=== PATIENT | female | born 1940 | race Caucasian/White ===

== ENCOUNTER → 2018-01-02 06:18 | Outpatient (CLI) | payer MEDICARE, SELFPAY ==
--- NOTE | 2018-01-02 06:22 | CA_ITS ---
PROCEDURE: 2-D M-mode and color Doppler study INDICATIONS FOR THE TEST: Chest pain X COPD Heart MurmurX Tobacco Smoking Palpitations FatigueX Syncope EdemaX HypertensionXDiabetes Mellitus Rheumatic Fever SOBXDOE Obesity HyperlipidemiaX Family History HD Additional History PATIENT INFORMATION HEIGHT: 55 WEIGHT:112 GENDER: Female B/P:149/72 2-D/M-MODE INTERPRETATION: 2-D MEASUREMENTS OBSERVED VALUES IN CMS Right Ventricular Dimension (RVDd) 1.4 Interventricular Septum (Thickness)(IVsd) 1.2 Left Ventricular Internal Dimensions(LVIDd) 3.9 Left Ventricular Posterior Wall (Thickness)(LVPWd) .9 Aortic Root 3.0 Aortic Cusp Separation 1.5 Left Atrial Dimensions (LAD) 3.3 2D 1. Left atrium is mildly enlarged, left ventricle is normal size, mild concentric left ventricular hypertrophy, visually estimated ejection fraction 55% with no obvious regional wall motion abnormality. 2. The right atrium and right ventricle are normal size and contractility. 3. The aortic valve is minimally thickened and fibrosed. 4. The mitral and tricuspid valve leaflets are minimally thickened. 5. The pulmonic valve is poorly visualized. 6. No significant pericardial effusion noted. DOPPLER INTERROGATION: Doppler interrogation of the aortic, mitral and tricuspid valvular presence of mild aortic, mild mitral and tricuspid regurgitation, calculated right ventricular systolic pressure is 36 mmHg consistent with mild pulmonary hypertension, grade 1 diastolic dysfunction seen with tissue Doppler evidence of raised left atrial pressure. CONCLUSION: 1. Mildly enlarged left atrium, normal left ventricular size, mild concentric left ventricular hypertrophy, visually estimated ejection fraction 55% with no signal wall motion abnormality, grade 1 diastolic dysfunction seen with tissue Doppler evidence of raised left atrial pressure. 2. Mild aortic, mild mitral and tricuspid regurgitation, calculated right ventricular systolic pressure is 36 mmHg consistent with mild pulmonary hypertension. 3. No significant pericardial effusion noted.
--- NOTE | 2018-01-02 06:22 | NM_ITS ---
History and Indications: Hyperlipidemia, chest pain and shortness of breath Procedure: Patient received a 0.4 mg of Lexiscan, resting heart rate 62 bpm, resting blood pressure 152/74, with Lexiscan maximum heart rate achieved was 109 bpm which is less than 85% of the maximum predicted heart rate and a blood pressure was 100/57. With Lexiscan patient complained of nausea and vomiting requiring intravenous Aminophyllin to reverse symptoms. Electrocardiogram: Resting electrocardiogram showed sinus rhythm, with Lexiscan there is less than 1.[address] segment depression noted from the baseline EKG. The EKG portion of the Lexiscan Myoview is nondiagnostic. Cardiac stress and resting SPECT images: Cardiac stress and rest SPECT images were obtained using technetium 99 Myoview 31.3 mCi at stress and the 10.6 mCi at rest. Gated SPECT further analysis of segmental wall motion and calculation of the ejection fraction also done. Cardiac stress and rest SPECT images show a mild fixed defect in the anterior wall with normal contractility in the gated SPECT is likely secondary to soft tissue attenuation, derived ejection fraction is 61% with no obvious regional wall motion abnormality, right ventricle is normal size and contractility. Conclusion: 1. The EKG portion of the Lexiscan Myoview is nondiagnostic. 2. No obvious scintigraphic evidence of reversible ischemia, either derived ejection fraction is 61% with no obvious regional wall motion abnormality, right ventricle is normal size and contractility. 3. Normal Lexiscan Myoview study.
--- NOTE | 2018-01-02 08:53 | HMH.ITSHM ---
valsartan triamterene/hctz simvastatin diazepam asa
== END ==
PROVIDERS: Family Provider Family Medicine; PCP Family Medicine; Visit Provider Internal Medicine
DX: R07.89 Other chest pain (principal); R06.09 Other forms of dyspnea; R94.31 Abnormal electrocardiogram [ECG] [EKG]; E78.5 Hyperlipidemia, unspecified; I35.1 Nonrheumatic aortic (valve) insufficiency
CPT/HCPCS: 78452; 93017; 93306; A9502; J2785

== ENCOUNTER → 2018-01-20 11:07 | Outpatient (CLI) | payer MEDICARE, SELFPAY ==
--- NOTE | 2018-01-20 11:13 | XR_ITS ---
XR foot LT min 3V HISTORY: ITS.REASON: LEFT HEEL PAIN ORDERING PHYSICIAN: Harshal Rojas MD PATIENT AGE: 77 years COMPARISON: None FINDINGS: No fracture or dislocation. No lytic or blastic change. There is mild generalized osteopenia... There is mild hallux valgus and there are mild hammertoe deformities of the second third toes. There is possible mild post traumatic change of the MP joint of the second toe. The joint spaces are well-preserved. No significant degenerative/arthritic changes. No erosive changes evident. There is a small spur of the calcaneus at insertion of plantar tendon. IMPRESSION: Small calcaneal spur and mild hallux valgus
== END ==
PROVIDERS: PCP Family Medicine; Visit Provider Family Medicine
DX: M79.672 Pain in left foot (principal)
CPT/HCPCS: 73630

== ENCOUNTER → 2018-02-20 14:38 | Outpatient (CLI) | payer MEDICARE, SELFPAY ==
--- NOTE | 2018-02-20 14:46 | XR_ITS ---
XR chest 2V HISTORY: ITS.REASON: HTN ORDERING PHYSICIAN: Harshal Rojas MD PATIENT AGE: 77 years COMPARISON: 03/07/2012 FINDINGS: The cardiovascular structures are unremarkable. The lungs are clear bilaterally. There is increased density overlying the spine at the T12 region and could be due to small hiatal hernia. Paraspinal bony hypertrophic change also a consideration. There has been prior right shoulder replacement. Multiple screws are present in the glenoid portion of the prosthesis at least one extending superior to the clavicle injected into the soft tissues. There is a right proximal humeral prosthesis present as well as 2 plates over the mid and distal aspect of the humerus. Degenerative changes are present in the lower thoracic spine. IMPRESSION: 1. No acute finding of the chest. 2. Postsurgical changes of the right shoulder and humerus. 3. Possible hiatal hernia 4. degenerative change thoracic lumbar spine
== END ==
PROVIDERS: PCP Family Medicine; Visit Provider Family Medicine
DX: Z01.818 Encounter for other preprocedural examination (principal)
CPT/HCPCS: 71046

== ENCOUNTER → 2018-06-03 08:57 | Outpatient (CLI) | payer MEDICARE, SELFPAY ==
--- NOTE | 2018-06-03 09:02 | XR_ITS ---
XR DEXA axial skeleton HISTORY: ITS.REASON: OSTEOPOROSIS ORDERING PHYSICIAN: Harshal Rojas MD PATIENT AGE: 77 years COMPARISON: None FINDINGS: The BMD measured at the Right Total is 0.812 g/cm squared with a T score of -1.6. This is considered Osteopenic according to the World Health Organization criteria. Fracture risk is Moderate. Treatment is advised. L1 L4 density has a T score -1.2. IMPRESSION: Osteopenia with moderate fracture risk. Treatment is advised. Recommend follow-up exam May 2020
== END ==
PROVIDERS: PCP Family Medicine; Visit Provider Family Medicine
DX: M81.0 Age-related osteoporosis without current pathological fracture (principal)
CPT/HCPCS: 77080

== ENCOUNTER 2018-06-11 10:49 | Outpatient (CLI) | payer MEDICARE, SELFPAY ==
[2018-06-11 09:54] VITALS: BP 116/66; PULSE 78; RESP 18; TEMP 36.4; O2SAT 97
== END 2018-06-11 11:20 | disposition home or self-care (01) ==
LOC: INF 10:49
PROVIDERS: Visit Provider Family Medicine
DX: M81.0 Age-related osteoporosis without current pathological fracture (principal)
CPT/HCPCS: 96372; J0897

== ENCOUNTER 2018-12-10 10:48 | Outpatient (CLI) | payer MEDICARE, SELFPAY ==
[2018-12-10 10:54] VITALS: BP 132/62; PULSE 64; RESP 20; TEMP 36.8; O2SAT 99
== END 2018-12-10 11:15 | disposition home or self-care (01) ==
LOC: INF 10:48
PROVIDERS: Visit Provider Family Medicine
DX: M81.0 Age-related osteoporosis without current pathological fracture (principal)
CPT/HCPCS: 96372; J0897

== ENCOUNTER 2018-12-12 21:21 | Inpatient (IN) ==
[2018-12-12 22:29] LABS: Basophils % 0.1 % (0.1-2.0); Eosinophils % 0.1 % (0.1-12.0); Hemoglobin 11.4 g/dL (12.2-16.2); Lymphocytes # 0.3 K/mm3 (0.7-4.5); Lymphocytes % 2.6 % (10-50); Mean Corpuscular HGB Conc 32.6 g/dL (31.8-35.4); Mean Corpuscular Hemoglobin 28.2 pg (27.0-31.2); Mean Corpuscular Volume 86.7 fl (81-99); Mean Platelet Volume 6.9 fl (7.4-10.4); Monocytes # 0.5 K/mm3 (0.1-1.0); Monocytes % 4.4 % (1.7-9.3); Neutrophils # 9.8 K/mm3 (1.8-7.8); Neutrophils % 92.8 % (37.0-80.0); Platelet Count 254 K/mm3 (142-424); Red Blood Count 4.04 M/mm3 (4.20-5.40); Red Cell Distribution Width 13.4 % (11.5-17.5); White Blood Count 10.5 K/mm3 (4.8-10.8)
[2018-12-12 22:32] LABS: Microscopic, Urine URINE MICROSCOPIC (MICROSCOPIC)
[2018-12-12 22:34] LABS: Appearance,Urine CLEAR (Clear); Bilirubin,Urine Negative (Negative); Blood, Urine TRACE-L (Negative); Color,Urine YELLOW (Yellow); Glucose,Urine (UA) Negative (Negative); Ketones,Urine Negative (Negative); Leukocyte Esterase,Urine Negative (Negative); PH,Urine 7.5 (5.0-8.5); Protein,Urine Negative (Negative); Specific Gravity, Urine 1.015 (1.005-1.030); Urobilinogen,Urine 0.2 EU/dl (0.2)
--- NOTE | 2018-12-12 22:35 | Emergency Department Note ---
ED Disposition Clinical Impression: Cholecystitis Disposition: Admitted as Observation Condition on Discharge: Good Referrals: Harshal Rojas MD [Primary Care Provider] - - Critical Care Critical Care Time: No Attestation: On 12/12/18, the high probability of a clinically significant, sudden or life threatening deterioration of the following system(s) required my full and direct attention, intervention and personal management. The time I documented below is in addition to time spent performing reported procedures but includes the following listed in this critical care notation. Medical Decision Making - Medical Records Medical records reviewed: Yes: I reviewed the patient's medical records. - Silvino Inquiry Pt receiving controlled substance: No Vital Signs: 12/12/18 21:52 12/12/18 22:53 12/12/18 23:23 Temperature 98.8 F Temperature Source Oral Pulse Rate [Right] 103 H 102 H 94 H Respiratory Rate 18 16 16 Blood Pressure [Right Arm] 157/79 H 157/79 H 144/54 H Blood Pressure Mean [Right Arm] 105 105 84 Blood Pressure Source [Right Arm] Automatic Cuff Blood Pressure Position [Right Arm] Supine 02 Sat by Pulse Oximetry 96 95 96 Oxygen Delivery Method Room Air Room Air 12/12/18 23:27 12/12/18 23:30 12/13/18 00:00 Temperature Temperature Source Pulse Rate [Right] 91 H 88 84 Respiratory Rate 16 16 16 Blood Pressure [Right Arm] 141/71 H 123/73 116/63 Blood Pressure Mean [Right Arm] 94 89 80 Blood Pressure Source [Right Arm] Blood Pressure Position [Right Arm] 02 Sat by Pulse Oximetry 97 97 97 Oxygen Delivery Method Room Air Room Air Room Air - Lab Data Lab results reviewed: Yes: I reviewed the patient's lab results. Lab Results 12/12/18 22:10: WBC 10.5, RBC 4.04 L, Hgb 11.4 L, Hct 35.0 L, MCV 86.7, MCH 28.2, MCHC 32.6, RDW 13.4, Plt Count 254, MPV 6.9 L, Neut % (Auto) 92.8 H, Lymph % (Auto) 2.6 L, [place] % (Auto) 4.4, Eos % (Auto) 0.1, Baso % (Auto) 0.1, Neut # (Auto) 9.8 H, Lymph # (Auto) 0.3 L, [place] # (Auto) 0.5, Eos # (Auto) 0.0, Baso # (Auto) 0.0, Total Counted 100, Neutrophils % (Manual) 85 H, Band Neutrophils % 8.0, Lymphocytes % (Manual) 5 L, Monocytes % (Manual) 2, Platelet Estimate Normal, RBC Morphology Normal, ESR 15 12/12/18 22:10: Sodium 130 L, Potassium 3.6, Chloride 95 L, Carbon Dioxide 27, Anion Gap 11.6, BUN 14, Creatinine 0.78, Estimated Creat Clear 36, Estimated GFR 71, Est GFR ( Amer) 86, Glucose 174 H, Calcium 8.8, Total Bilirubin 2.6 H , AST 276 H, ALT 269 H, Alkaline Phosphatase 119 H, C-Reactive Protein 3.2 H, Total Protein 6.1 L, Albumin 3.5, Globulin 2.6, Albumin/Globulin Ratio 1.3, Am ylase 61, Lipase 91 12/12/18 22:10: Lactate 2.2 H 12/12/18 22:10: Troponin I 0.04 12/12/18 22:25: Urine Color Yellow, Urine Appearance Clear, Urine pH 7.5, Ur Specific [place] 1.015, Urine Protein Negative, Urine Glucose (UA) Negative, Urine Ketones Negative, Urine Blood Trace-l, Urine Nitrate Negative, Urine Bilirubin Negative, Urine Urobilinogen 0.2, Ur Leukocyte Esterase Negative, Urine RBC Occasional, Amorphous Sediment 2+ Result diagrams: 12/12/18 22:10 12/12/18 22:10 Orders (Tests/Meds): ED MEDICATIONS Generic Name Dose Route Start Last Admin Trade Name Freq PRN Reason Stop Dose Admin Sodium Chloride 1,000 mls @ 500 mls/hr 12/12/18 22:45 12/12/18 22:57 Sod Chlor 0.9% 1000ml Bag IV 01/11/19 22:44 500 mls/hr .Q2H JESSICA Administration Discontinued Medications Generic Name Dose Route Start Last Admin Trade Name Freq PRN Reason Stop Dose Admin Ioversol 75 ml 12/12/18 23:29 12/12/18 23:30 Rad-Optiray 350 100ml Vial IV 12/12/18 23:30 75 ml ONCE ONE Administration Protocol Ketorolac Tromethamine 30 mg 12/12/18 22:42 12/12/18 22:56 Toradol 30mg/Ml Vial IV 12/12/18 22:43 30 mg ONCE ONE Administration Ondansetron HCl 4 mg 12/12/18 22:42 12/12/18 22:57 Zofran 4mg/2ml Vial IV 12/12/18 22:43 4 mg ONCE ONE Administration Sodium Chloride 10 ml 12/12/18 23:29 12/12/18 23:30 Rad-Saline Flush 10ml Syringe IV 12/12/18 23:30 10 ml ONCE ONE Administration ORDERS Category Date Time Status CT abdomen pelvis w con Stat Cat Scan 12/12/18 21:58 Taken Blood Culture Stat Micro 12/12/18 22:10 Received - CT Data CT Scan: Abdomen, Pelvis Time Received: 01:[address] Reviewed: Yes: I have viewed the radiologist's interpretation Preliminary Findings: Abnormal (see report ) - ECG Data Tracing #1 Normal Sinus Rhythm: Yes Ischemic changes: non-specific ST-T wave changes ECG compared to prior tracings: there are no significant changes - Physician Consults Physician Consulted: bryan Reason -: Admission Nausea/Vomiting/Diarrhea HPI - General Chief complaint: Nausea/Vomiting/Diarrhea Stated complaint: Abd pain,vomiting Time Seen by Provider: 12/12/18 22:00 Mode of Arrival: Ambulatory Source of Information: Patient, Relative, Medical Record Limitations: No Limitations Description of Symptoms (Recalled from ER Triage Doc. by RN): Pt seen in Dr Laura felix office today for N/V and returned this PM - History of Present Illness HPI Narrative: pt with upper abd pain with nausea but no vomiting and no def fever - was seen in pcp office placed on abx - she has no melena MD complaint: nausea, vomiting, abdominal pain Onset (ago): day(s) Associated Abdominal Pain: Yes Location of pain: epigastric Severity: moderate Associated symptoms: denies other symptoms - Related Data Home Medications Medication Instructions Recorded Confirmed aspirin 81 mg tablet,delayed 81 mg PO DAILY tab 12/20/17 12/12/18 release cholecalciferol (vitamin D3) 2,000 1,000 iunits PO BID cap 12/20/17 12/12/18 unit capsule folic acid 0.8 mg capsule 400 mcg PO DAILY cap 12/20/17 12/12/18 simvastatin 20 mg tablet 20 mg PO QPM 12/20/17 12/12/18 triamterene 37.5 1 tab PO DAILY tab 12/20/17 12/12/18 mg-hydrochlorothiazide 25 mg tablet valsartan 80 mg tablet 80 mg PO DAILY tab 12/20/17 12/12/18 vitamin E (dl, acetate) 100 unit 100 unit PO BID 12/20/17 12/12/18 capsule vitamins A,C,Q-argz-kkbtss 14,320 1 cap PO BID cap 12/20/17 12/12/18 unit-226 mg-200 unit capsule diazepam 5 mg tablet 5 mg PO QHS PRN tab 12/23/17 12/12/18 Agency-3S/Dha/Epa/Fish Oil [Fish 1 each PO BID 06/11/18 12/12/18 Oil 1,200 mg Softgel] naproxen sodium 220 mg capsule 220 mg PO DAILY PRN cap 07/08/18 12/12/18 Dextran 70/Hypromellose/Pf 1 each OP QID 12/12/18 12/12/18 [Genteal Tears 0.1%-0.3% Drop] Multivit-Min/Iron/Folic/Lutein 1 each PO DAILY 12/12/18 12/12/18 [Centrum Silver Women Tablet] Allergies Allergy/AdvReac Type Severity Reaction Status Date / Time CRISTIANO Inhibitors Allergy Mild cough Verified 07/08/18 08:46 [facility] History - Hepatitis A Screen Drug use history?: No High risk sexual behaviors?: No History of sexually transmitted infection?: No Currently employed?: No Childcare worker?: No Do you have indoor plumbing?: Yes Do you have electricity?: Yes Attestation statement:: This patient has been screened for Hepatitis A risk factors. I have reviewed the patient's past medical history: Yes Medical History: Reports:: Anxiety, Gastroesophageal Reflux Disease(GERD), Hiatal Hernia, Hypertension Denies:: Diabetes Mellitus Type 1, Diabetes Mellitus Type 2 Comment: Mild aortic insufficiency and Mitral valve regurgitation Laterality Cases: Bilateral: Arthroscopy Shoulder, Carpal Tunnel Release Other Surgeries: Yes: Hysterectomy-Total, Tubal Ligation, Other (Back Sx (01/30 018)) - Social History Smoking Status: Never smoker Alcohol Intake: never Alcohol Intake Frequency:: other Substance Use Type: denies use Occupational Status: retired - Psychiatric History Expresses thoughts of harming self/others: None Suicide Plan Description: No Plan Pschychiatric History:: Reports:: Anxiety Family Hx:: Hypertension, Cancer ROS Obtained: Yes All systems reviewed & no additional complaints - Constitutional Constitutional: Denies fever(s), Reports poor appetite - Eyes Eyes: Denies change in vision, Denies eye pain - ENT Ears, Nose, Mouth, and Throat: Denies sore throat - Cardiovascular Cardiovascular: Denies chest pain, Denies dyspnea - Respiratory Respiratory: No cough - Gastrointestinal Gastrointestingal: Reports: abdominal pain, nausea. Denies: diarrhea, black, tarry stools, vomiting - Genitourinary Female Genitourinary: Denies hematuria - Musculoskeletal Musculoskeletal: Denies joint pain - Integumentary/Breasts Skin/Breast: Denies rash - Neurologic Neurologic: Denies seizure-like activity Physical Exam - General General appearance: alert - Head Head exam: normocephalic - Eye Eye exam: Present: PERRL, EOMI. Absent: scleral icterus - ENT ENT exam: Present: mucous membranes dry - Neck Neck exam: Present: trachea midline - Respiratory Respiratory exam: Present: normal lung sounds bilaterally. Absent: respiratory distress - Cardiovascular Cardiovascular exam: Present: regular rate, systolic murmur, +S4 - Abdominal Exam Abdominal exam: Present: soft, tenderness, Lobato's sign Abdominal tenderness: Present: RUQ, moderate - Extremities Exam Extremities exam: Present: full ROM - Neurological Exam Neurological exam: Present: alert, CN II-XII intact - Psychiatric Psychiatric exam: Present: normal affect - Skin Skin exam: Absent: rash
[2018-12-12 22:43] LABS: Albumin Level 3.5 gm/dL (3.4-5.0); Albumin/Globulin Ratio 1.3 (1.1-1.8); Anion Gap 11.6 mEq/L (5-15); Bilirubin,Total 2.6 mg/dL (0.2-1.0); C-Reactive Protein 3.2 mg/L (0.0-0.9); Calcium 8.8 mg/dL (8.5-10.1); Globulin 2.6 gm/dl (1.3-3.2); Potassium 3.6 mmoL/L (3.5-5.1); Total Protein,Serum 6.1 gm/dL (6.4-8.2)
[2018-12-12 22:45] LABS: Amorphous Sediment,Urine 2+ /lpf; RBC,Urine Occasional #/hpf (0-3)
[2018-12-12 22:49] LABS: Lymphocytes % 5 % (10-50); Monocytes % 2 % (2-9); Neutrophils % 85 % (42-76); RBC Morphology Normal; Total Cells Counted 100
[2018-12-12 23:05] LABS: Erythrocyte Sedimentation Rate 15 mm/hr (0-30)
[2018-12-13 06:36] LABS: Lymphocytes # 0.6 K/mm3 (0.7-4.5); Lymphocytes % 8.4 % (10-50); Mean Platelet Volume 7.1 fl (7.4-10.4); Monocytes # 0.5 K/mm3 (0.1-1.0); Neutrophils % 84.1 % (37.0-80.0)
[2018-12-13 06:40] LABS: Basophils % 0.2 % (0.1-2.0); Eosinophils % 0.5 % (0.1-12.0); Hematocrit 31.7 % (37.0-47.0); Mean Corpuscular HGB Conc 31.5 g/dL (31.8-35.4); Mean Corpuscular Hemoglobin 27.5 pg (27.0-31.2); Mean Corpuscular Volume 87.3 fl (81-99); Monocytes % 6.8 % (1.7-9.3); Platelet Count 224 K/mm3 (142-424); Red Blood Count 3.63 M/mm3 (4.20-5.40); Red Cell Distribution Width 13.6 % (11.5-17.5); White Blood Count 7.1 K/mm3 (4.8-10.8)
[2018-12-13 06:51] LABS: Albumin Level 2.9 gm/dL (3.4-5.0); Anion Gap 14.4 mEq/L (5-15); Bilirubin,Indirect 0.7 mg/dL (0.0-0.9); Bilirubin,Total 2.7 mg/dL (0.2-1.0); Calcium 8.3 mg/dL (8.5-10.1); Potassium 3.4 mmoL/L (3.5-5.1); Total Protein,Serum 5.5 gm/dL (6.4-8.2)
--- NOTE | 2018-12-13 09:45 | History & Physical Report ---
*Admission Date: 12/12/18 *Chief complaint: abdominal pain *History of present illness: Patient is a 78 year old female that presented to our ED with abdominal pain that started from yesterday's morning. She mentioned that her pain was mostly on RUQ and epigastric region. She was having bouts of nausea and vomiting but denies having any diarrhea. She was also having chills at home and mentions that she wasn't tolerating anything by mouth. She did come to our office earlier that day and was seen by our PA, who set her up for US of abdomen on Saturday as she was having positive fisher's sign in the office along with her symptoms. However, patient mentioned that she didn't think she could get through the w eekend, so she came into our ED for further evaluation. CT scan from ED showed distended gallbladder with intra and extrahepatic biliary ductal dilation. This morning during rounds, patient mentions that her pain was better as she haven't had anything to eat. Nausea is also better for the same reason. She mentions that she is still sore on RUQ and epigastric region. [facility] History I have reviewed the patient's past medical history: Yes Medical History: Reports:: Anxiety, Gastroesophageal Reflux Disease(GERD), Hiatal Hernia, Hypertension Denies:: Diabetes Mellitus Type 1, Diabetes Mellitus Type 2 *Have you ever received a pneumonia vaccine?: Yes *Have you received a flu vaccine this season?: Yes Laterality Cases: Bilateral: Arthroscopy Shoulder, Carpal Tunnel Release Other Surgeries: Yes: Hysterectomy-Total, Tubal Ligation, Other (Back Sx (01/2018)) - *Social History Smoking Status: Never smoker Alcohol Intake: never Alcohol Intake Frequency:: other Substance Use Type: denies use *Occupational Status:: retired *Travel in the last 8 weeks: None - Psychiatric History Expresses thoughts of harming self/others: None Suicide Plan Description: No Plan Pschychiatric History:: Reports:: Anxiety Family Hx:: Hypertension, Cancer Review of Systems - Constitutional Reports lack of energy, Reports malaise, Reports weakness - Eyes Denies change in vision, Denies irritation, Denies itchy eyes, Denies loss of vision - ENT Reports dry mouth, Denies abnormal hearing, Denies headache(s), Denies lip swelling, Denies mouth pain, Denies nasal discharge - *Cardiovascular Denies chest pain, Denies chest pain at rest, Denies chest pain with activity, Denies shortness of breath, Denies shortness of breath with activity - *Respiratory Denies chest congestion, Denies cough, Denies shortness of breath - *Gastrointestinal Reports abdominal pain (RUQ and epigastric region), Reports vomiting, Denies change in bowel habits, Denies difficulty swallowing, Denies excessive passing of gas - *Genitourinary Denies difficulty urinating - *Musculoskeletal Denies abnormal walking, Denies decreased muscle mass, Denies body aches - Integumentary/Breasts Denies hair loss, Denies change in hair - *Neurologic Denies seizure-like activity - Psychiatric Denies abnormal sleep pattern - Endocrine Denies cold intolerance - Hematologic/Lymphatic Denies easy bleeding - Allergic/Immunologic Denies seasonal runny nose Meds Home Medications Medication Instructions Recorded Confirmed Type aspirin 81 mg tablet,delayed 81 mg PO DAILY tab 12/20/17 12/13/18 History release cholecalciferol (vitamin D3) 2,000 1,000 iunits PO BID cap 12/20/17 12/13/18 History unit capsule folic acid 0.8 mg capsule 400 mcg PO DAILY cap 12/20/17 12/13/18 History simvastatin 20 mg tablet 20 mg PO QPM 12/20/17 12/13/18 History triamterene 37.5 1 tab PO DAILY tab 12/20/17 12/13/18 History mg-hydrochlorothiazide 25 mg tablet valsartan 80 mg tablet 80 mg PO DAILY tab 12/20/17 12/13/18 History vitamin E (dl, acetate) 100 unit 400 unit PO BID 12/20/17 12/13/18 History capsule vitamins A,C,A-wzzm-wzpgaw 14,320 1 cap PO BID cap 12/20/17 12/13/18 History unit-226 mg-200 unit capsule diazepam 5 mg tablet 5 mg PO HSP PRN tab 12/23/17 12/13/18 History [place]-3S/Dha/Epa/Fish Oil [Fish 1 each PO BID 06/11/18 12/13/18 History Oil 1,200 mg Softgel] naproxen sodium 220 mg capsule 220 mg PO DAILY PRN cap 07/08/18 12/13/18 History Dextran 70/Hypromellose/Pf 1 each OP QID 12/12/18 12/13/18 History [Genteal Tears 0.1%-0.3% Drop] Multivit-Min/Iron/Folic/Lutein 1 each PO DAILY 12/12/18 12/13/18 History [Centrum Silver Women Tablet] Ondansetron HCl [Ondansetron 4mg 4 mg PO Q6HP PRN 12/13/18 12/13/18 History Tablet] Allergies Allergy/AdvReac Type Severity Reaction Status Date / Time CRISTIANO Inhibitors Allergy Mild cough Verified 07/08/18 08:46 Exam Vital signs and Labs for Last 24 Hours: Temp Pulse Resp BP Pulse Ox 98.4 F 73 18 117/62 100 12/13/18 08:00 12/13/18 08:00 12/13/18 08:00 12/13/18 08:00 12/13/18 08:00 Laboratory Results - last 24 hr 12/12/18 22:10: WBC 10.5, RBC 4.04 L, Hgb 11.4 L, Hct 35.0 L, MCV 86.7, MCH 28.2, MCHC 32.6, RDW 13.4, Plt Count 254, MPV 6.9 L, Neut % (Auto) 92.8 H, Lymph % (Auto) 2.6 L, [place] % (Auto) 4.4, Eos % (Auto) 0.1, Baso % (Auto) 0.1, Neut # (Auto) 9.8 H, Lymph # (Auto) 0.3 L, [place] # (Auto) 0.5, Eos # (Auto) 0.0, Baso # (Auto) 0.0, Total Counted 100, Neutrophils % (Manual) 85 H, Band Neutrophils % 8.0, Lymphocytes % (Manual) 5 L, Monocytes % (Manual) 2, Platelet Estimate Normal, RBC Morphology Normal, ESR 15 12/12/18 22:10: Sodium 130 L, Potassium 3.6, Chloride 95 L, Carbon Dioxide 27, Anion Gap 11.6, BUN 14, Creatinine 0.78, Estimated Creat Clear 36, Estimated GFR 71, Est GFR ( Amer) 86, Glucose 174 H, Calcium 8.8, Total Bilirubin 2.6 H , AST 276 H, ALT 269 H, Alkaline Phosphatase 119 H, C-Reactive Protein 3.2 H, To lucian Protein 6.1 L, Albumin 3.5, Globulin 2.6, Albumin/Globulin Ratio 1.3, Amylase 61, Lipase 91 12/12/18 22:10: Lactate 2.2 H 12/12/18 22:10: Troponin I 0.04 12/12/18 22:25: Urine Color Yellow, Urine Appearance Clear, Urine pH 7.5, Ur Specific [place] 1.015, Urine Protein Negative, Urine Glucose (UA) Negative, Urine Ketones Negative, Urine Blood Trace-l, Urine Nitrate Negative, Urine Bilirubin Negative, Urine Urobilinogen 0.2, Ur Leukocyte Esterase Negative, Urine RBC Occasional, Amorphous Sediment 2+ 12/13/18 02:20: Lactate 1.2 12/13/18 06:18: WBC 7.1 D, RBC 3.63 L, Hgb 10.0 L D, Hct 31.7 L, MCV 87.3, MCH 27.5, MCHC 31.5 L, RDW 13.6, Plt Count 224, MPV 7.1 L, Neut % (Auto) 84.1 H, Lymph % (Auto) 8.4 L, [place] % (Auto) 6.8, Eos % (Auto) 0.5, Baso % (Auto) 0.2, Neut # (Auto) 6.0, Lymph # (Auto) 0.6 L, [place] # (Auto) 0.5, Eos # (Auto) 0.0, Baso # (Auto) 0.0 12/13/18 06:18: Sodium 138, Potassium 3.4 L, Chloride 101, Carbon Dioxide 26, Anion Gap 14.4, BUN 12, Creatinine 0.67, Estimated Creat Clear 35, Estimated GFR 85, Est GFR ( Amer) 102, Glucose 89 D, Calcium 8.3 L, Total Bilirubin 2.7 H, Direct Bilirubin 2.0 H, Indirect Bilirubin 0.7, AST 238 H, ALT 271 H, Alkaline Phosphatase 111, Troponin I 0.05, Total Protein 5.5 L, Albumin 2.9 L D, Lipase 103 I & O for Last 24 hours: Intake & Output 12/10/18 12/11/18 12/12/18 12/13/18 11:59 11:59 11:59 11:59 Intake Total 1100 / 1100 Balance 1100 / 1100 Weight 108 lb 6 oz - *Routine HEENT Exam Head: Present: normocephalic Eye: Present: EOMI, PERRL ENT: Present: mucous membranes moist - *Routine Neck Exam Present: supple. Absent: lymphadenopathy - *Routine Respiratory Exam Present: CTA bilaterally - *Routine Cardiovascular Exam Present: RRR - *Routine Abdominal Exam Present: soft, normoactive bowel sounds, tenderness (+ fisher's sign and mild pain in epigastric area upon palpation). Absent: distended, rebound - *Routine Extremities Exam Absent: cyanosis, clubbing, edema - *Routine Skin Exam Present: warm. Absent: rash - *Routine Neurological Exam Present: alert, oriented X3 Assessment and Plan (1) Cholecystitis Current visit: Yes Status: Acute Category: Medical Code(s): K81.9 - Cholecystitis, unspecified (2) Nausea & vomiting Current visit: Yes Status: Acute Category: Medical Code(s): R11.2 - Nausea with vomiting, unspecified (3) Essential hypertension Current visit: No Status: Chronic Category: Medical Code(s): I10 - Essential (primary) hypertension (4) HLD (hyperlipidemia) Current visit: No Status: Chronic Qualifiers: Hyperlipidemia type: other hyperlipidemia Category: Medical Code(s): E78.5 - Hyperlipidemia, unspecified (5) Hiatal hernia Current visit: Yes Status: Acute Category: Medical Code(s): K44.9 - Diaphragmatic hernia without obstruction or gangrene (6) Vitamin D deficiency Current visit: Yes Status: Acute Category: Medical Code(s): E55.9 - Vitamin D deficiency, unspecified (7) Lumbar spondylolysis Current visit: Yes Status: Acute Category: Medical Code(s): M43.06 - Spondylolysis, lumbar region - Assessment and plan all Dx Assessment and Plan for all problems:: continue home meds; will keep NPO until surgery consult. Will obtain US now and MRI on Saturday if necessary. Continue pain management and IV abx.
--- NOTE | 2018-12-13 10:15 | Consult Report ---
*Admission Date: 12/12/18 *Reason for consult:: Acute cholecystitis. *History of present illness: Ms. Clifton is an 78-year-old female that presents to [facility] for right upper quadrant and epigastric abdominal pain. Ongoing for over 24 hours. Initially evaluated at the office of her primary care physician. Gallbladder etiology was suspected. Ultrasound was requested for the following week. Patient presents to [facility] Emergency Department for evaluation of increasing and persistent right upper quadrant abdominal pain. Nausea and emesis has been present. Subjective chills. No diarrhea. No hematochezia or melena. Remainder of current complaint without significant abnormality. CT imaging completed during ED evaluation. Distended gallbladder noted with dilated extrahepatic and intrahepatic bile ducts; mild to moderate. Ultrasound pending. Elevation in LFTs and total bilirubin noted. Review of Systems - Review of Systems Review of systems:: pertinent systems reviewed and negative unless documented below - Constitutional Reports chills - *Gastrointestinal Reports abdominal pain, Reports belching, Reports cramping, Reports nausea, R eports vomiting - *Neurologic Reports weakness, Denies abnormal walking, Denies abnormal hearing, Denies headache(s), Denies loss of vision, Denies seizure-like activity [facility] History Medical History: Reports:: Anxiety, Gastroesophageal Reflux Disease(GERD), Hiatal Hernia, Hypertension Denies:: Diabetes Mellitus Type 1, Diabetes Mellitus Type 2 *Have you ever received a pneumonia vaccine?: Yes *Have you received a flu vaccine this season?: Yes Laterality Cases: Bilateral: Arthroscopy Shoulder, Carpal Tunnel Release Other Surgeries: Yes: Hysterectomy-Total, Tubal Ligation, Other (Back Sx (01/2018)) - *Social History Smoking Status: Never smoker Alcohol Intake: never Alcohol Intake Frequency:: other Substance Use Type: denies use *Occupational Status:: retired *Travel in the last 8 weeks: None - Psychiatric History Expresses thoughts of harming self/others: None Suicide Plan Description: No Plan Pschychiatric History:: Reports:: Anxiety Family Hx:: Hypertension, Cancer Meds Home Medications Medication Instructions Recorded Confirmed Type aspirin 81 mg tablet,delayed 81 mg PO DAILY tab 12/20/17 12/13/18 History release cholecalciferol (vitamin D3) 2,000 1,000 iunits PO BID cap 12/20/17 12/13/18 History unit capsule folic acid 0.8 mg capsule 400 mcg PO DAILY cap 12/20/17 12/13/18 History simvastatin 20 mg tablet 20 mg PO QPM 12/20/17 12/13/18 History triamterene 37.5 1 tab PO DAILY tab 12/20/17 12/13/18 History mg-hydrochlorothiazide 25 mg tablet valsartan 80 mg tablet 80 mg PO DAILY tab 12/20/17 12/13/18 History vitamin E (dl, acetate) 100 unit 400 unit PO BID 12/20/17 12/13/18 History capsule vitamins A,C,I-uxie-kshgbt 14,320 1 cap PO BID cap 12/20/17 12/13/18 History unit-226 mg-200 unit capsule diazepam 5 mg tablet 5 mg PO HSP PRN tab 12/23/17 12/13/18 History [place]-3S/Dha/Epa/Fish Oil [Fish 1 each PO BID 06/11/18 12/13/18 History Oil 1,200 mg Softgel] naproxen sodium 220 mg capsule 220 mg PO DAILY PRN cap 07/08/18 12/13/18 History Dextran 70/Hypromellose/Pf 1 each OP QID 12/12/18 12/13/18 History [Genteal Tears 0.1%-0.3% Drop] Multivit-Min/Iron/Folic/Lutein 1 each PO DAILY 12/12/18 12/13/18 History [Centrum Silver Women Tablet] Ondansetron HCl [Ondansetron 4mg 4 mg PO Q6HP PRN 12/13/18 12/13/18 History Tablet] Allergies Allergy/AdvReac Type Severity Reaction Status Date / Time CRISTIANO Inhibitors Allergy Mild cough Verified 07/08/18 08:46 Exam Vital signs and Labs for Last 24 Hours: Temp Pulse Resp BP Pulse Ox 98.4 F 73 18 117/62 100 12/13/18 08:00 12/13/18 08:00 12/13/18 08:00 12/13/18 08:00 12/13/18 08:00 Laboratory Results - last 24 hr 12/12/18 22:10: WBC 10.5, RBC 4.04 L, Hgb 11.4 L, Hct 35.0 L, MCV 86.7, MCH 28.2, MCHC 32.6, RDW 13.4, Plt Count 254, MPV 6.9 L, Neut % (Auto) 92.8 H, Lymph % (Auto) 2.6 L, Owen % (Auto) 4.4, Eos % (Auto) 0.1, Baso % (Auto) 0.1, Neut # (Auto) 9.8 H, Lymph # (Auto) 0.3 L, Owen # (Auto) 0.5, Eos # (Auto) 0.0, Baso # (Auto) 0.0, Total Counted 100, Neutrophils % (Manual) 85 H, Band Neutrophils % 8.0, Lymphocytes % (Manual) 5 L, Monocytes % (Manual) 2, Platelet Estimate Normal, RBC Morphology Normal, ESR 15 12/12/18 22:10: Sodium 130 L, Potassium 3.6, Chloride 95 L, Carbon Dioxide 27, Anion Gap 11.6, BUN 14, Creatinine 0.78, Estimated Creat Clear 36, Estimated GFR 71, Est GFR ( Amer) 86, Glucose 174 H, Calcium 8.8, Total Bilirubin 2.6 H , AST 276 H, ALT 269 H, Alkaline Phosphatase 119 H, C-Reactive Protein 3.2 H, Total Protein 6.1 L, Albumin 3.5, Globulin 2.6, Albumin/Globulin Ratio 1.3, Amylase 61, Lipase 91 12/12/18 22:10: Lactate 2.2 H 12/12/18 22:10: Troponin I 0.04 12/12/18 22:25: Urine Color Yellow, Urine Appearance Clear, Urine pH 7.5, Ur Specific Novelty 1.015, Urine Protein Negative, Urine Glucose (UA) Negative, Urine Ketones Negative, Urine Blood Trace-l, Urine Nitrate Negative, Urine Bilirubin Negative, Urine Urobilinogen 0.2, Ur Leukocyte Esterase Negative, Urine RBC Occasional, Amorphous Sediment 2+ 12/13/18 02:20: Lactate 1.2 12/13/18 06:18: WBC 7.1 D, RBC 3.63 L, Hgb 10.0 L D, Hct 31.7 L, MCV 87.3, MCH 27.5, MCHC 31.5 L, RDW 13.6, Plt Count 224, MPV 7.1 L, Neut % (Auto) 84.1 H, Lymph % (Auto) 8.4 L, Owen % (Auto) 6.8, Eos % (Auto) 0.5, Baso % (Auto) 0.2, Neut # (Auto) 6.0, Lymph # (Auto) 0.6 L, Owen # (Auto) 0.5, Eos # (Auto) 0.0, Baso # (Auto) 0.0 12/13/18 06:18: Sodium 138, Potassium 3.4 L, Chloride 101, Carbon Dioxide 26, Anion Gap 14.4, BUN 12, Creatinine 0.67, Estimated Creat Clear 35, Estimated GFR 85, Est GFR ( Amer) 102, Glucose 89 D, Calcium 8.3 L, Total Bilirubin 2.7 H, Direct Bilirubin 2.0 H, Indirect Bilirubin 0.7, AST 238 H, ALT 271 H, Alkaline Phosphatase 111, Troponin I 0.05, Total Protein 5.5 L, Albumin 2.9 L D, Lipase 103 I & O for Last 24 hours: Intake & Output 12/10/18 12/11/18 12/12/18 12/13/18 11:59 11:59 11:59 11:59 Intake Total 1100 / 1100 Balance 1100 / 1100 Weight 49.158 kg - *Routine HEENT Exam Head: Present: normocephalic - *Routine Respiratory Exam Present: CTA bilaterally - *Routine Cardiovascular Exam Present: RRR - *Routine Abdominal Exam Present: soft Comments: Minimally tender; tenderness right upper quadrant. Negative Lobato sign. Peritonitis. No acute abdomen. Results - Labs 12/13/18 06:18 12/13/18 06:18 Laboratory Results - last 24 hr 12/12/18 22:10: WBC 10.5, RBC 4.04 L, Hgb 11.4 L, Hct 35.0 L, MCV 86.7, MCH 28.2, MCHC 32.6, RDW 13.4, Plt Count 254, MPV 6.9 L, Neut % (Auto) 92.8 H, Lymph % (Auto) 2.6 L, Owen % (Auto) 4.4, Eos % (Auto) 0.1, Baso % (Auto) 0.1, Neut # (Auto) 9.8 H, Lymph # (Auto) 0.3 L, Owen # (Auto) 0.5, Eos # (Auto) 0.0, Baso # (Auto) 0.0, Total Counted 100, Neutrophils % (Manual) 85 H, Band Neutrophils % 8.0, Lymphocytes % (Manual) 5 L, Monocytes % (Manual) 2, Platelet Estimate Normal, RBC Morphology Normal, ESR 15 12/12/18 22:10: Sodium 130 L, Potassium 3.6, Chloride 95 L, Carbon Dioxide 27, Anion Gap 11.6, BUN 14, Creatinine 0.78, Estimated Creat Clear 36, Estimated GFR 71, Est GFR ( Amer) 86, Glucose 174 H, Calcium 8.8, Total Bilirubin 2.6 H , AST 276 H, ALT 269 H, Alkaline Phosphatase 119 H, C-Reactive Protein 3.2 H, Total Protein 6.1 L, Albumin 3.5, Globulin 2.6, Albumin/Globulin Ratio 1.3, Amylase 61, Lipase 91 12/12/18 22:10: Lactate 2.2 H 12/12/18 22:10: Troponin I 0.04 12/12/18 22:25: Urine Color Yellow, Urine Appearance Clear, Urine pH 7.5, Ur Specific Novelty 1.015, Urine Protein Negative, Urine Glucose (UA) Negative, Urine Ketones Negative, Urine Blood Trace-l, Urine Nitrate Negative, Urine Bilirubin Negative, Urine Urobilinogen 0.2, Ur Leukocyte Esterase Negative, Urine RBC Occasional, Amorphous Sediment 2+ 12/13/18 02:20: Lactate 1.2 12/13/18 06:18: WBC 7.1 D, RBC 3.63 L, Hgb 10.0 L D, Hct 31.7 L, MCV 87.3, MCH 27.5, MCHC 31.5 L, RDW 13.6, Plt Count 224, MPV 7.1 L, Neut % (Auto) 84.1 H, Lymph % (Auto) 8.4 L, Owen % (Auto) 6.8, Eos % (Auto) 0.5, Baso % (Auto) 0.2, Neut # (Auto) 6.0, Lymph # (Auto) 0.6 L, Owen # (Auto) 0.5, Eos # (Auto) 0.0, Baso # (Auto) 0.0 12/13/18 06:18: Sodium 138, Potassium 3.4 L, Chloride 101, Carbon Dioxide 26, Anion Gap 14.4, BUN 12, Creatinine 0.67, Estimated Creat Clear 35, Estimated GFR 85, Est GFR ( Amer) 102, Glucose 89 D, Calcium 8.3 L, Total Bilirubin 2.7 H, Direct Bilirubin 2.0 H, Indirect Bilirubin 0.7, AST 238 H, ALT 271 H, Alkaline Phosphatase 111, Troponin I 0.05, Total Protein 5.5 L, Albumin 2.9 L D, Lipase 103 - Imaging CT scan - abdomen: report reviewed, image reviewed CT scan - pelvis: report reviewed, image reviewed Assessment and Plan (1) Cholecystitis Current visit: Yes Status: Acute Category: Medical Code(s): K81.9 - Cholecystitis, unspecified (2) Nausea & vomiting Current visit: Yes Status: Acute Category: Medical Code(s): R11.2 - Nausea with vomiting, unspecified (3) Essential hypertension Current visit: No Status: Chronic Category: Medical Code(s): I10 - Essential (primary) hypertension (4) HLD (hyperlipidemia) Current visit: No Status: Chronic Qualifiers: Hyperlipidemia type: other hyperlipidemia Category: Medical Code(s): E78.5 - Hyperlipidemia, unspecified (5) Hiatal hernia Current visit: Yes Status: Acute Category: Medical Code(s): K44.9 - Diaphragmatic hernia without obstruction or gangrene (6) Vitamin D deficiency Current visit: Yes Status: Acute Category: Medical Code(s): E55.9 - Vitamin D deficiency, unspecified (7) Lumbar spondylolysis Current visit: Yes Status: Acute Category: Medical Code(s): M43.06 - Spondylolysis, lumbar region - Assessment and plan all Dx Assessment and Plan for all problems:: 1. Acalculous cholecystitis. Distended gallbladder noted without direct evidence of cholelithiasis on CT imaging. Ultrasound pending. Elevation in LFTs and total bilirubin noted. Total bilirubin 2.6 on admission. Total bilirubin 2.7 on admission. Incidental finding of subtle mucosal changes in the third portion the duodenum also noted on CT; likely clinically insignificant. Manage as a calculus cholecystitis at this time until further information is obtained. Admit. Limit oral intake to clear liquids. Recheck LFTs. Await ultrasound results. Anticipate laparoscopic cholecystectomy as total bilirubin returns to normal. If bilirubin remains elevated or increases over the course of 24 hours, request [facility] GI consultation for preoperative EGD and ERCP. If bilirubin returns to normal or decreases, anticipate laparoscopic cholecystectomy. Ultrasound images reviewed. Dilated gallbladder without significant pericholecystic fluid. No clear evidence of gallstones. Await radiology interpretation. Okay for clear liquids today.
--- NOTE | 2018-12-13 15:26 | Pharmacy Consult Notes ---
[facility] Pharmacy VTE Monitoring - Patient Demographics Admission date: 12/13/18 Report Date: 12/13/18 Time: 15:26 Allergies/Adverse Reactions: Patient Allergies CRISTIANO Inhibitors Allergy (Mild, Verified 07/08/18 08:46) cough Height: 1.4 m Weight: 49.158 kg Patient Problems: Current Active Problems (Updated 12/13/18 @ 09:57 by Oma Osorio MD) Cholecystitis (Acute) Nausea & vomiting (Acute) Hiatal hernia (Acute) Vitamin D deficiency (Acute) Lumbar spondylolysis (Acute) - VTE Risk Labs: VTE Related Lab Results Hgb 10.0 g/dL (12.2-16.2) L D 12/13/18 06:18 Hct 31.7 % (37.0-47.0) L 12/13/18 06:18 Plt Count 224 K/mm3 (142-424) 12/13/18 06:18 BUN 12 mg/dL (7-18) 12/13/18 06:18 Creatinine 0.67 mg/dL (0.55-1.02) 12/13/18 06:18 Estimated Creat Clear 35 mL/min (50-200) 12/13/18 06:18 Was VTE Risk Assessment Performed: Yes VTE Score: 5 VTE Risk Level: Low Risk - Prophylaxis VTE Prophylaxis Ordered?: Yes Types of VTE Prophylaxis: TEDS Knee High Location of Applied Device: Bilateral Lower Extremeties
[2018-12-14 06:30] LABS: Albumin Level 2.5 gm/dL (3.4-5.0); Albumin/Globulin Ratio 1.1 (1.1-1.8); Anion Gap 11.4 mEq/L (5-15); Bilirubin,Total 1.3 mg/dL (0.2-1.0); Calcium 7.6 mg/dL (8.5-10.1); Globulin 2.3 gm/dl (1.3-3.2); Potassium 3.4 mmoL/L (3.5-5.1); Total Protein,Serum 4.8 gm/dL (6.4-8.2)
--- NOTE | 2018-12-14 10:56 | Progress Note ---
Internal Medicine - PN: Subj *Date: 12/14/18 *Time: 10:00 Interval history: Patient doing well with the pain medication and IV antibiotics on board. She mentions that she is still sore on the right side of her abdomen. No nausea or vomiting episodes overnight. She did tolerate liquid diet yesterday. Her bilirubin are trending down today. Exam Vital signs and Labs for Last 24 Hours: Temp Pulse Resp BP Pulse Ox 98.2 F 62 18 141/69 H 96 12/14/18 08:00 12/14/18 08:00 12/14/18 08:00 12/14/18 08:00 12/14/18 08:00 Laboratory Results - last 24 hr 12/14/18 05:40: Sodium 142, Potassium 3.4 L, Chloride 106, Carbon Dioxide 28, Anion Gap 11.4, BUN 5 L D, Creatinine 0.50 L D, Estimated Creat Clear 35, Estimated GFR 119, Est GFR ( Amer) 144 D, Glucose 90, Calcium 7.6 L, Total Bilirubin 1.3 H, AST 174 H D, ALT 262 H, Alkaline Phosphatase 152 H, Total Protein 4.8 L, Albumin 2.5 L D, Globulin 2.3, Albumin/Globulin Ratio 1.1 I & O for Last 24 hours: Intake & Output 12/11/18 12/12/18 12/13/18 12/14/18 11:59 11:59 11:59 11:59 Intake Total 1100 / 1100 2594 / 2594 Balance 1100 / 1100 2594 / 2594 Weight 108 lb 6 oz 110 lb 1 oz - *Routine HEENT Exam Head: Present: normocephalic Eye: Present: EOMI, PERRL ENT: Present: mucous membranes moist - *Routine Neck Exam Present: supple. Absent: lymphadenopathy - *Routine Respiratory Exam Present: CTA bilaterally - *Routine Cardiovascular Exam Present: RRR - *Routine Abdominal Exam Present: soft, normoactive bowel sounds, tenderness (Mildly on the right upper quadrant and epigastric region) - *Routine Extremities Exam Absent: cyanosis, clubbing, edema - *Routine Skin Exam Present: warm. Absent: rash - *Routine Neurological Exam Present: alert, oriented X3 Assessment and Plan (1) Cholecystitis Current visit: Yes Status: Acute Category: Medical Code(s): K81.9 - Cholecystitis, unspecified (2) Nausea & vomiting Current visit: Yes Status: Acute Category: Medical Code(s): R11.2 - Nausea with vomiting, unspecified (3) Essential hypertension Current visit: No Status: Chronic Category: Medical Code(s): I10 - Essential (primary) hypertension (4) HLD (hyperlipidemia) Current visit: No Status: Chronic Qualifiers: Hyperlipidemia type: other hyperlipidemia Category: Medical Code(s): E78.5 - Hyperlipidemia, unspecified (5) Hiatal hernia Current visit: Yes Status: Acute Category: Medical Code(s): K44.9 - Diaphragmatic hernia without obstruction or gangrene (6) Vitamin D deficiency Current visit: Yes Status: Acute Category: Medical Code(s): E55.9 - Vitamin D deficiency, unspecified (7) Lumbar spondylolysis Current visit: Yes Status: Acute Category: Medical Code(s): M43.06 - Spondylolysis, lumbar region - Assessment and plan all Dx Assessment and Plan for all problems:: We will await surgical recommendation for today. Patient has been n.p.o. after midnight. If no plan for surgical intervention today, will restart her liquid diet and advance as tolerated.
--- NOTE | 2018-12-14 15:17 | Progress Note ---
Subjective Patient reports: no new complaints Narrative: Ms. Clifton is an 78-year-old female admitted for right upper quadrant abdominal pain and what was suspected to be symptomatic cholelithiasis. Official ultrasound results are now reported. No cholelithiasis. Questionable sludge. No pericholecystic fluid. Laboratory evaluation today shows improvement in liver function test. Total bilirubin remains mildly elevated at 1.3; improved. WBC remains normal. Overall, patient feels that she is doing better. Without right upper quadrant abdominal pain. No new complaints. Exam Vital signs and Labs for Last 24 Hours: Temp Pulse Resp BP Pulse Ox 98.5 F 64 18 141/57 H 96 12/14/18 11:51 12/14/18 11:51 12/14/18 11:51 12/14/18 11:51 12/14/18 11:51 Laboratory Results - last 24 hr 12/14/18 05:40: Sodium 142, Potassium 3.4 L, Chloride 106, Carbon Dioxide 28, Anion Gap 11.4, BUN 5 L D, Creatinine 0.50 L D, Estimated Creat Clear 35, Estimated GFR 119, Est GFR ( Amer) 144 D, Glucose 90, Calcium 7.6 L, Total Bilirubin 1.3 H, AST 174 H D, ALT 262 H, Alkaline Phosphatase 152 H, Total Protein 4.8 L, Albumin 2.5 L D, Globulin 2.3, Albumin/Globulin Ratio 1.1 I & O for Last 24 hours: Intake & Output 12/12/18 12/13/18 12/14/18 12/15/18 11:59 11:59 11:59 11:59 Intake Total 1100 / 1100 2594 / 2594 Balance 1100 / 1100 2594 / 2594 Weight 49.158 kg 49.924 kg - Constitutional no acute distress - *Routine Abdominal Exam Present: soft Progress Note: A&P (1) Cholecystitis Status: Acute Current Visit: Yes (2) Nausea & vomiting Status: Acute Current Visit: Yes (3) Essential hypertension Status: Chronic Current Visit: No (4) HLD (hyperlipidemia) Status: Chronic Current Visit: No (5) Hiatal hernia Status: Acute Current Visit: Yes (6) Vitamin D deficiency Status: Acute Current Visit: Yes (7) Lumbar spondylolysis Status: Acute Current Visit: Yes Assessment and Plan for All Diagnoses:: Right upper quadrant abdominal pain. Resolved. Few stains need to be addressed in anticipation for potential laparoscopic cholecystectomy. Ultrasound is without cholelithiasis. Subtle mucosal abnormality demonstrated on CT imaging as reported by radiology at the level of the duodenum. Bilirubin remains slightly elevated. Trending towards normal as measured at 1.3. Transaminases still remain elevated. Normal WBC. However, anemia noted with hemoglobin measuring 10. In summary, EGD and colonoscopy are recommended prior to surgery. ERCP and/or MRCP to be considered, as well. Events to date are most likely reflective of chronic anemia and symptomatic cholelithiasis (2 prior episodes of abdominal pain in January 2018 after lower back surgery). Still, further evaluation needs to be completed before pursuing operative intervention.
[2018-12-15 07:21] LABS: Albumin Level 2.5 gm/dL (3.4-5.0); Albumin/Globulin Ratio 0.9 (1.1-1.8); Anion Gap 10.4 mEq/L (5-15); Bilirubin,Total 0.7 mg/dL (0.2-1.0); Calcium 7.4 mg/dL (8.5-10.1); Globulin 2.7 gm/dl (1.3-3.2); Potassium 3.4 mmoL/L (3.5-5.1); Total Protein,Serum 5.2 gm/dL (6.4-8.2)
--- NOTE | 2018-12-15 08:35 | Progress Note ---
Subjective Narrative: Patient is a 78-year-old white female. On Saturday she had developed epigastric and right upper quadrant pain with associated nausea. She was seen in her primary care provider's office as an outpatient and attempt was made at outpatient management with planned ultrasound to be done today. However she had ongoing symptoms with vomiting and had presented to the emergency department on 12/13/2018. She was seen and evaluated had a CT scan which revealed distended gallbladder with prominent bile ducts. She had elevation of transaminases and bilirubin. She was admitted for inpatient management. She did undergo gallbladder ultrasound which did not reveal any gallstones. Her symptoms have somewhat improved. She had been seen by the surgeon on-call over the weekend. She does have a history of iron deficiency anemia and her CT scan revealed abnormality of the duodenum. Apparently arrangements have been made for gastroenterology evaluation for possible EGD and for MRCP prior to any cholecystectomy. Exam Vital signs and Labs for Last 24 Hours: Temp Pulse Resp BP Pulse Ox 97.3 F L 64 18 144/66 H 96 12/15/18 08:00 12/15/18 08:00 12/15/18 08:00 12/15/18 08:00 12/15/18 08:00 Laboratory Results - last 24 hr 12/15/18 06:20: Sodium 141, Potassium 3.4 L, Chloride 108 H, Carbon Dioxide 26, Anion Gap 10.4, BUN 5 L, Creatinine 0.47 L, Estimated Creat Clear 36, Estimated GFR 128, Est GFR ( Amer) 154, Glucose 85, Calcium 7.4 L, Total Bilirubin 0.7, AST 114 H D, ALT 226 H, Alkaline Phosphatase 218 H, Total Protein 5.2 L, Albumin 2.5 L, Globulin 2.7, Albumin/Globulin Ratio 0.9 L I & O for Last 24 hours: Intake & Output 12/12/18 12/13/18 12/14/18 12/15/18 11:59 11:59 11:59 11:59 Intake Total 1100 / 1100 2594 / 2594 1794 / 1794 Output Total 2100 / 2100 Balance 1100 / 1100 2594 / 2594 -306 / -306 Weight 108 lb 6 oz 110 lb 1 oz 113 lb 4 oz Microbiology Reports for the Last 24 Hours: Microbiology 12/12/18 22:10 Blood Blood Culture - Preliminary NO GROWTH AFTER 48 HOURS 12/12/18 22:10 Blood Blood Culture - Preliminary NO GROWTH AFTER 48 HOURS - Constitutional no acute distress - *Routine Abdominal Exam Present: soft Progress Note: A&P (1) Cholecystitis Status: Acute Current Visit: Yes (2) Nausea & vomiting Status: Acute Current Visit: Yes (3) Essential hypertension Status: Chronic Current Visit: No (4) HLD (hyperlipidemia) Status: Chronic Current Visit: No (5) Hiatal hernia Status: Acute Current Visit: Yes (6) Vitamin D deficiency Status: Acute Current Visit: Yes (7) Lumbar spondylolysis Status: Acute Current Visit: Yes Assessment and Plan for All Diagnoses:: LFTs have shown some improvement. Await gastroenterology input. May need cholecystectomy with or without cholangiogram.
--- NOTE | 2018-12-15 11:37 | Progress Note ---
Internal Medicine - PN: Subj *Date: 12/15/18 *Time: 11:33 Interval history: Saw patient this morning around 8 am. She is feeling better, no abdominal pain, nausea, vomiting or diarrhea. She is NPO for GI consultation. Exam Vital signs and Labs for Last 24 Hours: Temp Pulse Resp BP Pulse Ox 97.3 F L 64 18 144/66 H 98 12/15/18 08:00 12/15/18 08:00 12/15/18 08:00 12/15/18 08:00 12/15/18 08:00 Laboratory Results - last 24 hr 12/15/18 06:20: Sodium 141, Potassium 3.4 L, Chloride 108 H, Carbon Dioxide 26, Anion Gap 10.4, BUN 5 L, Creatinine 0.47 L, Estimated Creat Clear 36, Estimated GFR 128, Est GFR ( Amer) 154, Glucose 85, Calcium 7.4 L, Total Bilirubin 0.7, AST 114 H D, ALT 226 H, Alkaline Phosphatase 218 H, Total Protein 5.2 L, Albumin 2.5 L, Globulin 2.7, Albumin/Globulin Ratio 0.9 L Vital Signs - 24 hr 12/14/18 11:51 12/14/18 16:00 12/14/18 19:26 Temperature 98.5 F 98.5 F 98.4 F Pulse Rate [Left Radial] 64 75 70 Pulse Rate [Right] Respiratory Rate 18 17 18 Blood Pressure [Right Arm] 141/57 H 155/77 H 142/72 H 02 Sat by Pulse Oximetry 96 98 95 12/15/18 03:49 12/15/18 08:00 Temperature 97.9 F 97.3 F L Pulse Rate [Left Radial] 68 Pulse Rate [Right] 64 Respiratory Rate 16 18 Blood Pressure [Right Arm] 145/71 H 144/66 H 02 Sat by Pulse Oximetry 97 98 I & O for Last 24 hours: Intake & Output 12/12/18 12/13/18 12/14/18 12/15/18 23:59 23:59 23:59 23:59 Intake Total 2059 2474 / 2474 954 / 954 Output Total 500 / 800 1600 / 1600 Balance 2059 1974 / 1674 -646 / -646 Weight 111 lb 108 lb 6 oz 110 lb 1 oz 113 lb 4 oz Microbiology Reports for the Last 24 Hours: Microbiology 12/12/18 22:10 Blood Blood Culture - Preliminary NO GROWTH AFTER 48 HOURS 12/12/18 22:10 Blood Blood Culture - Preliminary NO GROWTH AFTER 48 HOURS - Constitutional no acute distress - *Routine HEENT Exam Head: Present: normocephalic Eye: Present: EOMI ENT: Present: mucous membranes moist - *Routine Neck Exam Present: supple. Absent: lymphadenopathy - *Routine Respiratory Exam Present: CTA bilaterally - *Routine Cardiovascular Exam Present: RRR - *Routine Abdominal Exam Present: soft, normoactive bowel sounds. Absent: tenderness - *Routine Extremities Exam Absent: cyanosis, clubbing, edema - *Routine Skin Exam Present: warm. Absent: rash - *Routine Neurological Exam Present: alert, oriented X3 Assessment and Plan (1) Cholecystitis Current visit: Yes Status: Acute Category: Medical Code(s): K81.9 - Cholecystitis, unspecified (2) Nausea & vomiting Current visit: Yes Status: Acute Category: Medical Code(s): R11.2 - Nausea with vomiting, unspecified (3) Essential hypertension Current visit: No Status: Chronic Category: Medical Code(s): I10 - Essential (primary) hypertension (4) HLD (hyperlipidemia) Current visit: No Status: Chronic Qualifiers: Hyperlipidemia type: other hyperlipidemia Category: Medical Code(s): E78.5 - Hyperlipidemia, unspecified (5) Hiatal hernia Current visit: Yes Status: Acute Category: Medical Code(s): K44.9 - Diaphragmatic hernia without obstruction or gangrene (6) Vitamin D deficiency Current visit: Yes Status: Acute Category: Medical Code(s): E55.9 - Vitamin D deficiency, unspecified (7) Lumbar spondylolysis Current visit: Yes Status: Acute Category: Medical Code(s): M43.06 - Spondylolysis, lumbar region - Assessment and plan all Dx Assessment and Plan for all problems:: LFT's and bilirubin have improved. Pt is anemic, GI consult pending for possible EGD/ERCP. Discussed with Dr. Salinas.
--- NOTE | 2018-12-15 12:20 | Progress Note ---
[facility] Anesthesia Checklist - Patient Identification Patient Identification: Arm Band - Structural Data Admitted From: Home Planned Operative Procedure/s: egd Consent for Planned Operative Procedure(s) Verified: Yes Verified Documents: Surgical Consent, History and Physical - NPO Status Verified Time NPO: 00:00 - Additional verifications Anesthesia Reactions: No - Airway Assessment C-Spine Mobility Assessed: Yes (mp2) TMJ Mobility Assessed: Yes Dentition: Dentures-good fit - Neurological Assessment Level of Consciousness: Awake, Alert - Anesthesia Plan Anesthesia Risk discussed: Yes Anesthesia Plan: Verified ASA Class: III Anesthesia Type: MAC [facility] History I have reviewed the patient's past medical history: Yes Medical History: Reports:: Anxiety, Gastroesophageal Reflux Disease(GERD), Hiatal Hernia, Hypertension, Valvular Heart Disease Denies:: Diabetes Mellitus Type 1, Diabetes Mellitus Type 2 *Have you ever received a pneumonia vaccine?: Yes *Have you received a flu vaccine this season?: Yes Laterality Cases: Bilateral: Arthroscopy Shoulder, Carpal Tunnel Release Other Surgeries: Yes: Hysterectomy-Total, Tubal Ligation, Other (Back Sx (01/2018)) - *Social History Smoking Status: Never smoker Alcohol Intake: never Alcohol Intake Frequency:: other Substance Use Type: denies use *Occupational Status:: retired *Travel in the last 8 weeks: None - Psychiatric History Expresses thoughts of harming self/others: None Suicide Plan Description: No Plan Pschychiatric History:: Reports:: Anxiety Family Hx:: Hypertension, Cancer
--- NOTE | 2018-12-15 12:20 | Procedure Note ---
[facility] Procedure Note Procedure Note:: Upper Endoscopy Procedure Report: Esophagogastroduodenoscopy with cold biopsies Endoscopost: Liang Sanchez II, MD Referring Physician: Angel Victoria MD/Harshal Rojas MD Date of Procedure: December 15, 2018 Equipment: Olympus GIF 180 standard upper endoscope Sedation: MAC sedation Indications: Mrs. Clifton is an 78-year-old female admitted with abdominal pain in the epigastrium brought in on Saturday with pain most of the day. She had associated nausea. Her CAT scan of the abdomen did show a dilated biliary system as well as a soft tissue density/inflammation in the third portion of the duodenum. The patient has improved but did have some nausea yesterday. She did have moderate belching and some bloating. An ultrasound of the gallbladder did show a small amount of pericholecystic fluid and a distended gallbladder. The patient had an MRCP today/MRI that shows gallbladder distention with some pericholecystic fluid. The common bile duct/common hepatic duct proximally was dilated and there is tapering down in the distal CBD. There were no filling defects/stones identified. The patient's total bilirubin was 2.7 tapering down to 1.3 and today was 0.7. Her alkaline phosphatase went from 111 up to 152 and today is 218. Her ALT level was 271 and today is 226. The patient was seen by Dr. Angel Victoria over the weekend and recommended EGD to evaluate further. The patient's last colonoscopy was 2000. The patient does have some borderline anemia. Procedure: Prior to the procedure, a history and physical exam was performed, and patient's medications and allergies were reviewed. The risks, benefits and alternatives of the sedation and procedure were discussed with the patient. All questions were answered and informed consent was obtained. The patient was brought to the procedure room. Patient identification and proposed procedure were verified by the physician and the nurse. The patient was placed in a left lateral decubitus position and the scope was passed under direct vision. Throughout the procedure, the patient's blood pressure, pulse, and oxygen saturations were monitored continuously. The upper GI endoscopy was accomplished without difficulty. The patient tolerated the procedure well. Findings: The scope was passed directly into the upper esophagus and advanced to the third and fourth portion of the duodenum. The post bulbar duodenum was normal and there was no mass or irregularity in the third or fourth portion. The second and first portion of the duodenum were normal. There was mild peptic duodenitis of the duodenal bulb. The scope was withdrawn through a normal pylorus of the stomach there was some superficial ulceration that appeared to be healing in the gastric antrum. Cold biopsies were obtained from the antrum. There was some chronic gastritis of the body and fundus of the stomach. Upon retroflexion there was no hiatal hernia. The scope was then withdrawn into the esophagus. The remainder of the esophageal mucosa was normal. Impression: 1. Superficial prepyloric gastric ulceration with some proximal stomach chronic gastritis Plan: There was no abnormality in the third portion of the duodenum. I did review the CAT scan and MRI/MRCP. There is some distal tapering of the common bile duct which does not correspond to dilation more proximally. I would recommend cholecystectomy presently because of imaging evidence of cholecystitis. If possible, intraoperative cholangiogram can be performed. The patient's total bilirubin is improving but her alkaline phosphatase is rising. The patient may require ERCP if this fails to improve. I will follow up the biopsies.
--- NOTE | 2018-12-15 15:22 | Progress Note ---
Subjective Patient reports: feels better Narrative: Patient states that she feels better this afternoon. MRCP results and official read are pending at this time. She did undergo upper endoscopy by Dr. Sanchez and the third portion of the duodenum was relatively unremarkable. Biopsies were obtained. It was recommended that cholecystectomy be considered as next step in patient's management. Exam Vital signs and Labs for Last 24 Hours: Temp Pulse Resp BP Pulse Ox 98 F 59 L 18 137/86 97 12/15/18 12:48 12/15/18 12:48 12/15/18 12:48 12/15/18 12:48 12/15/18 12:48 Laboratory Results - last 24 hr 12/15/18 06:20: Sodium 141, Potassium 3.4 L, Chloride 108 H, Carbon Dioxide 26, Anion Gap 10.4, BUN 5 L, Creatinine 0.47 L, Estimated Creat Clear 36, Estimated GFR 128, Est GFR ( Amer) 154, Glucose 85, Calcium 7.4 L, Total Bilirubin 0.7, AST 114 H D, ALT 226 H, Alkaline Phosphatase 218 H, Total Protein 5.2 L, Albumin 2.5 L, Globulin 2.7, Albumin/Globulin Ratio 0.9 L I & O for Last 24 hours: Intake & Output 12/13/18 12/14/18 12/15/18 12/16/18 11:59 11:59 11:59 11:59 Intake Total 1100 / 1100 2594 / 2594 1794 / 1794 150 / 150 Output Total 2100 / 2100 400 / 400 Balance 1100 / 1100 2594 / 2594 -306 / -306 -250 / -250 Weight 108 lb 6 oz 110 lb 1 oz 113 lb 4 oz 113 lb 3.988 oz Microbiology Reports for the Last 24 Hours: Microbiology 12/12/18 22:10 Blood Blood Culture - Preliminary NO GROWTH AFTER 48 HOURS 12/12/18 22:10 Blood Blood Culture - Preliminary NO GROWTH AFTER 48 HOURS - *Routine Abdominal Exam Present: soft. Absent: tenderness Progress Note: A&P (1) Cholecystitis Status: Acute Current Visit: Yes (2) Nausea & vomiting Status: Acute Current Visit: Yes (3) Essential hypertension Status: Chronic Current Visit: No (4) HLD (hyperlipidemia) Status: Chronic Current Visit: No (5) Hiatal hernia Status: Acute Current Visit: Yes (6) Vitamin D deficiency Status: Acute Current Visit: Yes (7) Lumbar spondylolysis Status: Acute Current Visit: Yes Assessment and Plan for All Diagnoses:: Patient may have had transient choledocholithiasis and has now passed a gallstone based on her improvement in transaminases. However, her alkaline phosphatase has slightly elevated. MRCP results pending. I do feel that cholecystectomy with attempted intraoperative cholangiogram would be the next step in the patient's management. I discussed the timing of this with the patient. I may see how she does with a diet this afternoon. If she tolerates this then potential for discharge home with return on Saturday as an outpatient for cholecystectomy with cholangiogram may be considered. However, if she is unable to tolerate a diet this afternoon then I will check into the feasibility of possible surgery tomorrow which would likely be in the late evening.
--- NOTE | 2018-12-16 07:04 | Progress Note ---
Subjective Patient reports: feels better Narrative: Patient tolerated diet last night without issue. Still with some right upper quadrant soreness. Exam Vital signs and Labs for Last 24 Hours: Temp Pulse Resp BP Pulse Ox 97.7 F 67 14 147/74 H 97 12/16/18 04:00 12/16/18 04:00 12/16/18 04:00 12/16/18 04:00 12/16/18 04:00 Laboratory Results - last 24 hr 12/15/18 06:20: Sodium 141, Potassium 3.4 L, Chloride 108 H, Carbon Dioxide 26, Anion Gap 10.4, BUN 5 L, Creatinine 0.47 L, Estimated Creat Clear 36, Estimated GFR 128, Est GFR ( Amer) 154, Glucose 85, Calcium 7.4 L, Total Bilirubin 0.7, AST 114 H D, ALT 226 H, Alkaline Phosphatase 218 H, Total Protein 5.2 L, Albumin 2.5 L, Globulin 2.7, Albumin/Globulin Ratio 0.9 L I & O for Last 24 hours: Intake & Output 12/13/18 12/14/18 12/15/18 12/16/18 11:59 11:59 11:59 11:59 Intake Total 1100 / 1100 2594 / 2594 1794 / 1794 1551 / 1551 Output Total 2100 / 2100 2200 / 2200 Balance 1100 / 1100 2594 / 2594 -306 / -306 -649 / -649 Weight 108 lb 6 oz 110 lb 1 oz 113 lb 4 oz 113 lb 3.988 oz - *Routine Abdominal Exam Present: soft Comments: She has some tenderness in the right upper quadrant and epigastrium without guarding or rebound. Progress Note: A&P (1) Cholecystitis Status: Acute Current Visit: Yes (2) Nausea & vomiting Status: Acute Current Visit: Yes (3) Essential hypertension Status: Chronic Current Visit: No (4) HLD (hyperlipidemia) Status: Chronic Current Visit: No (5) Hiatal hernia Status: Acute Current Visit: Yes (6) Vitamin D deficiency Status: Acute Current Visit: Yes (7) Lumbar spondylolysis Status: Acute Current Visit: Yes Assessment and Plan for All Diagnoses:: Laboratory studies pending this morning. I will assess the feasibility of OR time either later today or tomorrow morning. Pending her laboratory studies tentatively likely plan for cholecystectomy with cholangiogram if feasible tomorrow morning. Due to patient's ongoing tenderness and clinical cholecystitis remaining an inpatient may be desirable.
[2018-12-16 07:50] LABS: Albumin Level 2.6 gm/dL (3.4-5.0); Anion Gap 11.5 mEq/L (5-15); Bilirubin,Total 0.6 mg/dL (0.2-1.0); Calcium 7.3 mg/dL (8.5-10.1); Globulin 2.7 gm/dl (1.3-3.2); Potassium 3.5 mmoL/L (3.5-5.1); Total Protein,Serum 5.3 gm/dL (6.4-8.2)
[2018-12-16 08:38] LABS: Basophils % 0.5 % (0.1-2.0); Eosinophils # 0.1 K/mm3 (0.0-0.4); Eosinophils % 2.7 % (0.1-12.0); Hematocrit 30.6 % (37.0-47.0); Hemoglobin 9.8 g/dL (12.2-16.2); Lymphocytes # 0.6 K/mm3 (0.7-4.5); Mean Corpuscular HGB Conc 31.9 g/dL (31.8-35.4); Mean Corpuscular Hemoglobin 28.4 pg (27.0-31.2); Mean Corpuscular Volume 88.9 fl (81-99); Mean Platelet Volume 7.2 fl (7.4-10.4); Monocytes # 0.3 K/mm3 (0.1-1.0); Monocytes % 8.7 % (1.7-9.3); Platelet Count 205 K/mm3 (142-424); Red Blood Count 3.44 M/mm3 (4.20-5.40); Red Cell Distribution Width 13.6 % (11.5-17.5)
--- NOTE | 2018-12-16 08:44 | Progress Note ---
Internal Medicine - PN: Subj *Date: 12/16/18 *Time: 08:43 Interval history: Pt with no new complaints today. Exam Vital signs and Labs for Last 24 Hours: Temp Pulse Resp BP Pulse Ox 97.7 F 67 14 147/74 H 97 12/16/18 04:00 12/16/18 04:00 12/16/18 04:00 12/16/18 04:00 12/16/18 04:00 Laboratory Results - last 24 hr 12/16/18 06:50: WBC 3.0 L, RBC 3.44 L, Hgb 9.8 L, Hct 30.6 L, MCV 88.9, MCH 28.4, MCHC 31.9, RDW 13.6, Plt Count 205, MPV 7.2 L, Neut % (Auto) 67.0, Lymph % (Auto) 21.0, Rowan % (Auto) 8.7, Eos % (Auto) 2.7, Baso % (Auto) 0.5, Neut # (Auto) 2.0, Lymph # (Auto) 0.6 L, Rowan # (Auto) 0.3, Eos # (Auto) 0.1, Baso # (Auto) 0.0 12/16/18 06:50: Sodium 141, Potassium 3.5, Chloride 107, Carbon Dioxide 26, Anion Gap 11.5, BUN 8 D, Creatinine 0.42 L, Estimated Creat Clear 36, Estimated GFR 145, Est GFR ( Amer) 176, Glucose 74, Calcium 7.3 L, Total Bilirubin 0.6, AST 59 H D, ALT 169 H D, Alkaline Phosphatase 225 H, Total Protein 5.3 L, Albumin 2.6 L, Globulin 2.7, Albumin/Globulin Ratio 1.0 L I & O for Last 24 hours: Intake & Output 12/13/18 12/14/18 12/15/18 12/16/18 23:59 23:59 23:59 23:59 Intake Total 2059 2474 / 2474 1344 / 1344 1161 / 1161 Output Total 500 / 800 2700 / 2700 1100 / 1100 Balance 2059 1974 / 1674 -1356 / -1356 61 / 61 Weight 108 lb 6 oz 110 lb 1 oz 113 lb 3.988 oz 113 lb 3.988 oz - Constitutional no acute distress - *Routine HEENT Exam Head: Present: normocephalic Eye: Present: EOMI ENT: Present: mucous membranes moist - *Routine Neck Exam Present: supple. Absent: lymphadenopathy - *Routine Respiratory Exam Present: CTA bilaterally - *Routine Cardiovascular Exam Present: RRR - *Routine Abdominal Exam Present: soft, normoactive bowel sounds, tenderness (minimal RUQ) - *Routine Extremities Exam Absent: cyanosis, clubbing, edema - *Routine Skin Exam Present: warm. Absent: rash - *Routine Neurological Exam Present: alert, oriented X3 Assessment and Plan (1) Cholecystitis Current visit: Yes Status: Acute Category: Medical Code(s): K81.9 - Cholecystitis, unspecified (2) Nausea & vomiting Current visit: Yes Status: Acute Category: Medical Code(s): R11.2 - Nausea with vomiting, unspecified (3) Essential hypertension Current visit: No Status: Chronic Category: Medical Code(s): I10 - Essential (primary) hypertension (4) HLD (hyperlipidemia) Current visit: No Status: Chronic Qualifiers: Hyperlipidemia type: other hyperlipidemia Category: Medical Code(s): E78.5 - Hyperlipidemia, unspecified (5) Hiatal hernia Current visit: Yes Status: Acute Category: Medical Code(s): K44.9 - Diaphragmatic hernia without obstruction or gangrene (6) Vitamin D deficiency Current visit: Yes Status: Acute Category: Medical Code(s): E55.9 - Vitamin D deficiency, unspecified (7) Lumbar spondylolysis Current visit: Yes Status: Acute Category: Medical Code(s): M43.06 - Spondylolysis, lumbar region - Assessment and plan all Dx Assessment and Plan for all problems:: Surgery plan per Dr. Salinas.
[2018-12-17 07:04] LABS: Basophils % 0.4 % (0.1-2.0); Eosinophils # 0.1 K/mm3 (0.0-0.4); Eosinophils % 3.1 % (0.1-12.0); Hematocrit 30.8 % (37.0-47.0); Hemoglobin 9.7 g/dL (12.2-16.2); Lymphocytes # 0.7 K/mm3 (0.7-4.5); Lymphocytes % 19.9 % (10-50); Mean Corpuscular HGB Conc 31.6 g/dL (31.8-35.4); Mean Corpuscular Hemoglobin 27.6 pg (27.0-31.2); Mean Corpuscular Volume 87.4 fl (81-99); Mean Platelet Volume 7.1 fl (7.4-10.4); Monocytes # 0.3 K/mm3 (0.1-1.0); Monocytes % 9.4 % (1.7-9.3); Neutrophils # 2.2 K/mm3 (1.8-7.8); Neutrophils % 67.2 % (37.0-80.0); Platelet Count 221 K/mm3 (142-424); Red Blood Count 3.52 M/mm3 (4.20-5.40); Red Cell Distribution Width 13.7 % (11.5-17.5); White Blood Count 3.3 K/mm3 (4.8-10.8)
[2018-12-17 07:19] LABS: Albumin Level 2.7 gm/dL (3.4-5.0); Anion Gap 11.1 mEq/L (5-15); Bilirubin,Total 0.5 mg/dL (0.2-1.0); Calcium 7.3 mg/dL (8.5-10.1); Globulin 2.7 gm/dl (1.3-3.2); Potassium 3.1 mmoL/L (3.5-5.1); Total Protein,Serum 5.4 gm/dL (6.4-8.2)
--- NOTE | 2018-12-17 08:05 | Progress Note ---
<Isis Pereira - Last Filed: 12/17/18 08:02> Internal Medicine - PN: Subj *Date: 12/17/18 *Time: 08:02 Interval history: Patient states she is feeling a little bit better this morning. Still has some pain in the right upper quadrant. Is n.p.o. for surgery this morning. She states she slept decently well last night. Exam Vital signs and Labs for Last 24 Hours: Temp Pulse Resp BP Pulse Ox 98.3 F 77 17 150/82 H 97 12/17/18 04:00 12/17/18 04:00 12/17/18 04:00 12/17/18 04:00 12/17/18 04:00 Laboratory Results - last 24 hr 12/16/18 06:50: WBC 3.0 L, RBC 3.44 L, Hgb 9.8 L, Hct 30.6 L, MCV 88.9, MCH 28.4, MCHC 31.9, RDW 13.6, Plt Count 205, MPV 7.2 L, Neut % (Auto) 67.0, Lymph % (Auto) 21.0, Avery % (Auto) 8.7, Eos % (Auto) 2.7, Baso % (Auto) 0.5, Neut # (Auto) 2.0, Lymph # (Auto) 0.6 L, Avery # (Auto) 0.3, Eos # (Auto) 0.1, Baso # (Auto) 0.0 12/17/18 06:15: WBC 3.3 L, RBC 3.52 L, Hgb 9.7 L, Hct 30.8 L, MCV 87.4, MCH 27.6, MCHC 31.6 L, RDW 13.7, Plt Count 221, MPV 7.1 L, Neut % (Auto) 67.2, Lymph % (Auto) 19.9, Avery % (Auto) 9.4 H, Eos % (Auto) 3.1, Baso % (Auto) 0.4, Neut # (Auto) 2.2, Lymph # (Auto) 0.7, Avery # (Auto) 0.3, Eos # (Auto) 0.1, Baso # (Auto) 0.0 12/17/18 06:15: Sodium 142, Potassium 3.1 L, Chloride 108 H, Carbon Dioxide 26, Anion Gap 11.1, BUN 7, Creatinine 0.47 L, Estimated Creat Clear 36, Estimated GFR 128, Est GFR ( Amer) 154, Glucose 85, Calcium 7.3 L, Total Bilirubin 0.5, AST 40 H D, ALT 135 H, Alkaline Phosphatase 225 H, Total Protein 5.4 L, Albumin 2.7 L, Globulin 2.7, Albumin/Globulin Ratio 1.0 L I & O for Last 24 hours: Intake & Output 12/14/18 12/15/18 12/16/18 12/17/18 11:59 11:59 11:59 11:59 Intake Total 2594 / 2594 1794 / 1794 1551 / 1551 2454 / 2454 Output Total 2100 / 2100 2200 / 2200 3100 / 3100 Balance 2594 / 2594 -306 / -306 -649 / -649 -646 / -646 Weight 110 lb 1 oz 113 lb 4 oz 113 lb 3.988 oz 113 lb 3 oz Radiology Reports for the Last 24 Hours: MRI abdomen 1. Dilated common hepatic duct, common bile duct, and intrahepatic biliary radicles. There is a bandlike area of narrowing just distal to the cystic duct insertion. No obvious retained common duct stones. No mass lesions are evident. The bandlike area of narrowing could be due to a small stricture. 2. Layering debris within the gallbladder which may be due to small stones and/or sludge - Constitutional no acute distress - *Routine Respiratory Exam Present: CTA bilaterally - *Routine Cardiovascular Exam Present: RRR - *Routine Abdominal Exam Present: soft, normoactive bowel sounds, tenderness (RUQ) - *Routine Extremities Exam Absent: cyanosis, clubbing, edema Assessment and Plan (1) Cholecystitis Current visit: Yes Status: Acute Category: Medical Code(s): K81.9 - Cholecystitis, unspecified (2) Nausea & vomiting Current visit: Yes Status: Acute Category: Medical Code(s): R11.2 - Nausea with vomiting, unspecified (3) Essential hypertension Current visit: No Status: Chronic Category: Medical Code(s): I10 - Essential (primary) hypertension (4) HLD (hyperlipidemia) Current visit: No Status: Chronic Qualifiers: Hyperlipidemia type: other hyperlipidemia Category: Medical Code(s): E78.5 - Hyperlipidemia, unspecified (5) Hiatal hernia Current visit: Yes Status: Acute Category: Medical Code(s): K44.9 - Diaphragmatic hernia without obstruction or gangrene (6) Vitamin D deficiency Current visit: Yes Status: Acute Category: Medical Code(s): E55.9 - Vitamin D deficiency, unspecified (7) Lumbar spondylolysis Current visit: Yes Status: Acute Category: Medical Code(s): M43.06 - Spondylolysis, lumbar region - Assessment and plan all Dx Assessment and Plan for all problems:: Laparoscopic cholecystectomy is planned for today around 11 AM. <Harshal Rojas - Last Filed: 12/17/18 08:19> Internal Medicine - PN: Subj *Date: 12/17/18 *Time: 08:19 Exam Vital signs and Labs for Last 24 Hours: Temp Pulse Resp BP Pulse Ox 98.3 F 63 16 148/75 H 95 12/17/18 08:00 12/17/18 08:00 12/17/18 08:00 12/17/18 08:00 12/17/18 08:00 Laboratory Results - last 24 hr 12/16/18 06:50: WBC 3.0 L, RBC 3.44 L, Hgb 9.8 L, Hct 30.6 L, MCV 88.9, MCH 28.4, MCHC 31.9, RDW 13.6, Plt Count 205, MPV 7.2 L, Neut % (Auto) 67.0, Lymph % (Auto) 21.0, Avery % (Auto) 8.7, Eos % (Auto) 2.7, Baso % (Auto) 0.5, Neut # (Auto) 2.0, Lymph # (Auto) 0.6 L, Avery # (Auto) 0.3, Eos # (Auto) 0.1, Baso # (Auto) 0.0 12/17/18 06:15: WBC 3.3 L, RBC 3.52 L, Hgb 9.7 L, Hct 30.8 L, MCV 87.4, MCH 27.6, MCHC 31.6 L, RDW 13.7, Plt Count 221, MPV 7.1 L, Neut % (Auto) 67.2, Lymph % (Auto) 19.9, Avery % (Auto) 9.4 H, Eos % (Auto) 3.1, Baso % (Auto) 0.4, Neut # (Auto) 2.2, Lymph # (Auto) 0.7, Avery # (Auto) 0.3, Eos # (Auto) 0.1, Baso # (Auto) 0.0 12/17/18 06:15: Sodium 142, Potassium 3.1 L, Chloride 108 H, Carbon Dioxide 26, Anion Gap 11.1, BUN 7, Creatinine 0.47 L, Estimated Creat Clear 36, Estimated GFR 128, Est GFR ( Amer) 154, Glucose 85, Calcium 7.3 L, Total Bilirubin 0.5, AST 40 H D, ALT 135 H, Alkaline Phosphatase 225 H, Total Protein 5.4 L, Albumin 2.7 L, Globulin 2.7, Albumin/Globulin Ratio 1.0 L I & O for Last 24 hours: Intake & Output 12/14/18 12/15/18 12/16/18 12/17/18 23:59 23:59 23:59 23:59 Intake Total 2474 / 2474 1344 / 1344 2783 / 2783 832 / 832 Output Total 500 / 800 2700 / 2700 3025 / 3225 1375 / 1375 Balance 1974 / 1674 -1356 / -1356 -242 / -442 -543 / -543 Weight 110 lb 1 oz 113 lb 3.988 oz 113 lb 3.988 oz 113 lb 3 oz Assessment and Plan (1) Cholecystitis Current visit: Yes Status: Acute Category: Medical Code(s): K81.9 - Cholecystitis, unspecified (2) Nausea & vomiting Current visit: Yes Status: Acute Category: Medical Code(s): R11.2 - Nausea with vomiting, unspecified (3) Essential hypertension Current visit: No Status: Chronic Category: Medical Code(s): I10 - Essential (primary) hypertension (4) HLD (hyperlipidemia) Current visit: No Status: Chronic Qualifiers: Hyperlipidemia type: other hyperlipidemia Category: Medical Code(s): E78.5 - Hyperlipidemia, unspecified (5) Hiatal hernia Current visit: Yes Status: Acute Category: Medical Code(s): K44.9 - Diaphragmatic hernia without obstruction or gangrene (6) Vitamin D deficiency Current visit: Yes Status: Acute Category: Medical Code(s): E55.9 - Vitamin D deficiency, unspecified (7) Lumbar spondylolysis Current visit: Yes Status: Acute Category: Medical Code(s): M43.06 - Spond ylolysis, lumbar region - Assessment and plan all Dx Assessment and Plan for all problems:: Saw patient, agree with above note.
--- NOTE | 2018-12-17 13:50 | Progress Note ---
[facility] Anesthesia Record Part I Intake, IV Amount: 900 Estimated blood loss (mL): 0 Urine output (mL): 0 Blood Products used (#): none Blood Pressure: 118/58 SaO2: 93 Pulse Rate: 78 Respiratory Rate: 20 Temperature: 97.6 F Patient is:: Awake, Drowsy, Stable Stable to PACU at:: 13:45
--- NOTE | 2018-12-17 13:50 | Progress Note ---
[facility] Anesthesia Record Part II Discharge Time: 14:15 Destination: Medical Surgical Department PACU nurse assessment reviewed?: Yes Patient Condition:: Good Anesthesia Complications:: None Swallowing reflex intact?: Yes Cyanosis?: No
--- NOTE | 2018-12-17 13:57 | Operative Note ---
Date of procedure: 12/17/18 Pre-op Diagnosis:: Cholecystitis Post-op Diagnosis:: Same Procedure performed:: Laparoscopic cholecystectomy with intraoperative cholangiogram Surgeon:: oRbe Salinas MD Anesthesia: LEVON Estimated blood loss (mL): 20 Clinical Note:: Patient is a 78-year-old white female. On 12/12/18 she had developed epigastric and right upper quadrant pain with associated nausea. She was seen in her primary care provider's office as an outpatient and attempt was made at outpatient management with planned ultrasound to be done 12/15/18. However she had ongoing symptoms with vomiting and had presented to the emergency department on 12/13/2018. She was seen and evaluated had a CT scan which revealed distended gallbladder with prominent bile ducts. She had elevation of transaminases and bilirubin. She was admitted for inpatient management. She did undergo gallbladder ultrasound which did not reveal any gallstones. Her symptoms improved somewhat. She had been seen by the surgeon on-call over the weekend. She does have a history of iron deficiency anemia and her CT scan revealed abnormality of the duodenum. Patient had MRCP on 12/15/2018 which revealed some prominence of the bile duct with luminal narrowing at the proximal common bile duct just distal to the insertion of the cystic duct. There was no other filling defect or obstruction. Recommendations were to proceed with cholecystectomy with cholangiogram ideally. Consideration was being given for possible discharge home with early outpatient follow-up. However the patient did have some ongoing symptoms of abdominal tenderness. Arrangements were made for laparoscopic with possibly open cholecystectomy with intraoperative cholangiogram. Operative findings:: Patient had a massively distended gallbladder which was slightly thickened and edematous with a small amount of pericholecystic fluid. The cystic duct was rather friable. Gallbladder had large amount of sludge and debris. Interestingly the intraoperative cholangiogram revealed prominence of the biliary tree with the previously noted luminal narrowing at the confluence of the cystic duct and common hepatic duct with a filling defect in the distal common bile duct consistent with either lesion versus stones and debris. There was no obstruction. Operative note:: Patient was taken to the operating room. She was positioned in a supine position. General anesthesia was induced via endotracheal tube. Her abdomen was prepped and draped in the standard surgical fashion. Subumbilical skin incision was made in her previous laparoscopy scar. While performing abdominal wall lift Veress needle was inserted. CO2 pneumoperitoneum was achieved to 15 mmHg. 11 mm optical trocar was inserted at the umbilicus. Intraperitoneal contents were visualized. She was immediately noted to have a massively distended gallbladder. She was positioned in reverse Trendelenburg left side down. A couple of 5 mm trochars were inserted in the right upper abdomen. 10 mm trocar was inserted in the epigastrium. Due to the massively distended and dilated gallbladder it was partially decompressed using the laparoscopic needle aspirator. Gallbladder was grasped retracted anteriorly and superiorly over the dome of the liver. It was retracted anterior laterally. Blunt dissection was carried out the neck of the gallbladder with limited use of CRISTIANO ultrasonic harmonic jazmyn. Gallbladder was rather friable and there was some spillage of bile from the gallbladder and from what appeared to be the cystic duct itself. The bile from the gallbladder had contained granular debris. This was suctioned free. Additional dissection was carried out of the cystic duct which was partially avulsed from the gallbladder. Through a 2 mm incision in the right upper quadrant cholangiocatheter introducer was inserted. The cholangiocatheter was manipulated into the already opened cystic duct. It was secured with a Hemoclip. Intraoperative cholangiogram was performed which revealed diffusely dilated biliary tree. Previously noted luminal narrowing at the confluence of the cystic duct and common bile duct was once again noted. Distally there was delayed filling into the duodenum and there was what appeared to be filling defect distally. After the case this was discussed with radiology it was difficult to determine if this was a large amount of debris or a filling defect such as a neoplasm. Once the cholangiogram was performed patient was repositioned. Cholangiocatheter was removed. The cystic duct was multiply clipped and then divided. Cystic artery was clearly identified and divided with CRISTIANO ultrasonic harmonic jazmyn after it was coagulated with CRISTIANO ultrasonic harmonic jazmyn. The gallbladder was dissected free from the liver in a retrograde fashion using CRISTIANO ultrasonic harmonic jazmyn. It was placed within an Endo Catch retrieval device and removed from the peritoneal cavity via the umbilical trocar site. Gallbladder fossa and perihepatic space were thoroughly irrigated and aspirated until clear. Trochars were removed as CO2 pn eumoperitoneum was evacuated. Fascia at the umbilicus was closed with a couple of 0 Vicryl sutures. Local anesthetic was infiltrated. Skin incisions were closed with 4-0 Monocryl subcuticular fashion. Steri-Strips and dressings were applied. Based on the cholangiogram findings patient will likely need ERCP. I will discuss this with gastroenterology. Condition: stable Disposition: PACU Specimens:: Gallbladder and contents Complications:: None immediately apparent
--- NOTE | 2018-12-18 06:44 | Progress Note ---
Subjective Patient reports: feels better (Only ambulating to bathroom) Exam Vital signs and Labs for Last 24 Hours: Temp Pulse Resp BP Pulse Ox 99.1 F 70 15 104/59 L 93 L 12/18/18 04:00 12/18/18 04:00 12/18/18 04:00 12/18/18 04:00 12/18/18 04:00 Laboratory Results - last 24 hr 12/17/18 06:15: WBC 3.3 L, RBC 3.52 L, Hgb 9.7 L, Hct 30.8 L, MCV 87.4, MCH 27.6, MCHC 31.6 L, RDW 13.7, Plt Count 221, MPV 7.1 L, Neut % (Auto) 67.2, Lymph % (Auto) 19.9, [place] % (Auto) 9.4 H, Eos % (Auto) 3.1, Baso % (Auto) 0.4, Neut # (Auto) 2.2, Lymph # (Auto) 0.7, [place] # (Auto) 0.3, Eos # (Auto) 0.1, Baso # (Auto) 0.0 12/17/18 06:15: Sodium 142, Potassium 3.1 L, Chloride 108 H, Carbon Dioxide 26, Anion Gap 11.1, BUN 7, Creatinine 0.47 L, Estimated Creat Clear 36, Estimated GFR 128, Est GFR ( Amer) 154, Glucose 85, Calcium 7.3 L, Total Bilirubin 0.5, AST 40 H D, ALT 135 H, Alkaline Phosphatase 225 H, Total Protein 5.4 L, Albumin 2.7 L, Globulin 2.7, Albumin/Globulin Ratio 1.0 L I & O for Last 24 hours: Intake & Output 12/15/18 12/16/18 12/17/18 12/18/18 11:59 11:59 11:59 11:59 Intake Total 1794 / 1794 1551 / 1551 2454 / 2454 2272 / 2272 Output Total 2099 / 2099 2200 / 2200 3300 / 3300 800 / 800 Balance -306 / -306 -649 / -649 -846 / -846 1472 / 1472 Weight 113 lb 4 oz 113 lb 3.988 oz 113 lb 3 oz Microbiology Reports for the Last 24 Hours: Microbiology 12/12/18 22:10 Blood Blood Culture - Final NO GROWTH AFTER 5 DAYS 12/12/18 22:10 Blood Blood Culture - Final NO GROWTH AFTER 5 DAYS - Constitutional no acute distress - *Routine Respiratory Exam Absent: respiratory distress - *Routine Cardiovascular Exam Present: RRR - *Routine Abdominal Exam Present: soft Comments: Dressings intact. Dressings are dry. No erythema. Progress Note: A&P (1) Cholecystitis Status: Acute Assessment and plan: Overall, doing well status post laparoscopic cholecystectomy with cholangiogram. Likely ERCP tomorrow as per gastroenterology Increase ambulation Follow-up morning labs Current Visit: Yes (2) Nausea & vomiting Status: Acute Current Visit: Yes (3) Essential hypertension Status: Chronic Current Visit: No (4) HLD (hyperlipidemia) Status: Chronic Current Visit: No (5) Hiatal hernia Status: Acute Current Visit: Yes (6) Vitamin D deficiency Status: Acute Current Visit: Yes (7) Lumbar spondylolysis Status: Acute Current Visit: Yes
[2018-12-18 06:51] LABS: Basophils % 0.2 % (0.1-2.0); Eosinophils # 0.1 K/mm3 (0.0-0.4); Eosinophils % 1.7 % (0.1-12.0); Hematocrit 29.8 % (37.0-47.0); Hemoglobin 9.7 g/dL (12.2-16.2); Lymphocytes # 0.6 K/mm3 (0.7-4.5); Mean Corpuscular HGB Conc 32.5 g/dL (31.8-35.4); Mean Corpuscular Volume 89.3 fl (81-99); Mean Platelet Volume 7.4 fl (7.4-10.4); Monocytes # 0.3 K/mm3 (0.1-1.0); Neutrophils # 4.1 K/mm3 (1.8-7.8); Neutrophils % 80.1 % (37.0-80.0); Platelet Count 218 K/mm3 (142-424); Red Blood Count 3.34 M/mm3 (4.20-5.40); Red Cell Distribution Width 14.1 % (11.5-17.5); White Blood Count 5.1 K/mm3 (4.8-10.8)
[2018-12-18 07:05] LABS: Albumin Level 2.3 gm/dL (3.4-5.0); Albumin/Globulin Ratio 0.9 (1.1-1.8); Anion Gap 13.2 mEq/L (5-15); Bilirubin,Total 0.5 mg/dL (0.2-1.0); Globulin 2.7 gm/dl (1.3-3.2); Potassium 3.2 mmoL/L (3.5-5.1)
[2018-12-18 07:19] LABS: Calcium 6.8 mg/dL (8.5-10.1)
--- NOTE | 2018-12-18 08:27 | Progress Note ---
<Isis Pereira - Last Filed: 12/18/18 08:24> Internal Medicine - PN: Subj *Date: 12/18/18 *Time: 08:24 Interval history: Patient is doing well postop this morning. She is walking around the room and has minimal pain. She has been able to eat and tolerated this well without any pain, nausea, or vomiting. She has been seen by surgery this morning and an ERCP is planned for tomorrow. Exam Vital signs and Labs for Last 24 Hours: Temp Pulse Resp BP Pulse Ox 98.5 F 78 16 123/82 93 L 12/18/18 07:55 12/18/18 07:55 12/18/18 07:55 12/18/18 07:55 12/18/18 07:55 Laboratory Results - last 24 hr 12/18/18 06:08: WBC 5.1 D, RBC 3.34 L, Hgb 9.7 L, Hct 29.8 L, MCV 89.3, MCH 29.0, MCHC 32.5, RDW 14.1, Plt Count 218, MPV 7.4, Neut % (Auto) 80.1 H, Lymph % (Auto) 12.0, [place] % (Auto) 6.0, Eos % (Auto) 1.7, Baso % (Auto) 0.2, Neut # (Auto) 4.1, Lymph # (Auto) 0.6 L, [place] # (Auto) 0.3, Eos # (Auto) 0.1, Baso # (Auto) 0.0 12/18/18 06:08: Sodium 141, Potassium 3.2 L, Chloride 106, Carbon Dioxide 25, Anion Gap 13.2, BUN 5 L D, Creatinine 0.52 L, Estimated Creat Clear 36, Estimated GFR 113, Est GFR ( Amer) 137, Glucose 98, Calcium 6.8 L, Total Bilirubin 0.5, AST 54 H D, ALT 108 H, Alkaline Phosphatase 223 H, Total Protein 5.0 L, Albumin 2.3 L D, Globulin 2.7, Albumin/Globulin Ratio 0.9 L, Amylase 41, Lipase 85 I & O for Last 24 hours: Intake & Output 12/15/18 12/16/18 12/17/18 12/18/18 11:59 11:59 11:59 11:59 Intake Total 1794 / 1794 1551 / 1551 2454 / 2454 2512 / 2512 Output Total 2100 / 2100 2200 / 2200 3300 / 3300 800 / 800 Balance -306 / -306 -649 / -649 -846 / -846 1712 / 1712 Weight 113 lb 4 oz 113 lb 3.988 oz 113 lb 3 oz 113 lb 7 oz Microbiology Reports for the Last 24 Hours: Microbiology 12/12/18 22:10 Blood Blood Culture - Final NO GROWTH AFTER 5 DAYS 12/12/18 22:10 Blood Blood Culture - Final NO GROWTH AFTER 5 DAYS Radiology Reports for the Last 24 Hours: Cholangiogram Dilated intra and extrahepatic biliary tree with eccentric filling defect at the distal aspect of the common bile duct. While this could be due to impacted small stones/sludge, one cannot the possibility of the lesion at the ampullary portion of the common bile duct. ERCP may be of further value. - Constitutional no acute distress - *Routine Respiratory Exam Present: CTA bilaterally - *Routine Cardiovascular Exam Present: RRR - *Routine Abdominal Exam Present: soft, normoactive bowel sounds, tenderness (around surgical incisions) - *Routine Extremities Exam Absent: cyanosis, clubbing, edema - *Routine Neurological Exam Present: alert, oriented X3 Assessment and Plan (1) Cholecystitis Current visit: Yes Status: Acute Category: Medical Code(s): K81.9 - Cholecystitis, unspecified (2) Nausea & vomiting Current visit: Yes Status: Acute Category: Medical Code(s): R11.2 - Nausea with vomiting, unspecified (3) Essential hypertension Current visit: No Status: Chronic Category: Medical Code(s): I10 - Essential (primary) hypertension (4) HLD (hyperlipidemia) Current visit: No Status: Chronic Qualifiers: Hyperlipidemia type: other hyperlipidemia Category: Medical Code(s): E78.5 - Hyperlipidemia, unspecified (5) Hiatal hernia Current visit: Yes Status: Acute Category: Medical Code(s): K44.9 - Diaphragmatic hernia without obstruction or gangrene (6) Vitamin D deficiency Current visit: Yes Status: Acute Category: Medical Code(s): E55.9 - Vitamin D deficiency, unspecified (7) Lumbar spondylolysis Current visit: Yes Status: Acute Category: Medical Code(s): M43.06 - Spondylolysis, lumbar region (8) Status post laparoscopic cholecystectomy Current visit: Yes Status: Acute Category: Surgical Code(s): Z90.49 - Acquired absence of other specified parts of digestive tract (9) Hypokalemia Current visit: Yes Status: Acute Category: Medical Code(s): E87.6 - Hypokalemia - Assessment and plan all Dx Assessment and Plan for all problems:: Surgery will continue to follow. Will start on potassium due to hypokalemia. Patient is scheduled for an ERCP tomorrow. <Harshal Rojas - Last Filed: 12/18/18 08:43> Internal Medicine - PN: Subj *Date: 12/18/18 *Time: 08:42 Exam Vital signs and Labs for Last 24 Hours: Temp Pulse Resp BP Pulse Ox 98.5 F 78 16 123/82 93 L 12/18/18 07:55 12/18/18 07:55 12/18/18 07:55 12/18/18 07:55 12/18/18 07:55 Laboratory Results - last 24 hr 12/18/18 06:08: WBC 5.1 D, RBC 3.34 L, Hgb 9.7 L, Hct 29.8 L, MCV 89.3, MCH 29.0, MCHC 32.5, RDW 14.1, Plt Count 218, MPV 7.4, Neut % (Auto) 80.1 H, Lymph % (Auto) 12.0, [place] % (Auto) 6.0, Eos % (Auto) 1.7, Baso % (Auto) 0.2, Neut # (Auto) 4.1, Lymph # (Auto) 0.6 L, [place] # (Auto) 0.3, Eos # (Auto) 0.1, Baso # (Auto) 0.0 12/18/18 06:08: Sodium 141, Potassium 3.2 L, Chloride 106, Carbon Dioxide 25, Anion Gap 13.2, BUN 5 L D, Creatinine 0.52 L, Estimated Creat Clear 36, Estimated GFR 113, Est GFR ( Amer) 137, Glucose 98, Calcium 6.8 L, Total Bilirubin 0.5, AST 54 H D, ALT 108 H, Alkaline Phosphatase 223 H, Total Protein 5.0 L, Albumin 2.3 L D, Globulin 2.7, Albumin/Globulin Ratio 0.9 L, Amylase 41, Lipase 85 I & O for Last 24 hours: Intake & Output 12/15/18 12/16/18 12/17/18 12/18/18 23:59 23:59 23:59 23:59 Intake Total 1344 / 1344 2783 / 2783 2116 / 2116 1228 / 1228 Output Total 2700 / 2700 3025 / 3225 1575 / 1775 600 / 600 Balance -1356 / -1356 -242 / -442 541 / 341 628 / 628 Weight 113 lb 3.988 oz 113 lb 3.988 oz 113 lb 3 oz 113 lb 7 oz Microbiology Reports for the Last 24 Hours: Microbiology 12/12/18 22:10 Blood Blood Culture - Final NO GROWTH AFTER 5 DAYS 12/12/18 22:10 Blood Blood Culture - Final NO GROWTH AFTER 5 DAYS Assessment and Plan (1) Cholecystitis Current visit: Yes Status: Acute Category: Medical Code(s): K81.9 - Cholecystitis, unspecified (2) Nausea & vomiting Current visit: Yes Status: Acute Category: Medical Code(s): R11.2 - Nausea with vomiting, unspecified (3) Essential hypertension Current visit: No Status: Chronic Category: Medical Code(s): I10 - Essential (primary) hypertension (4) HLD (hyperlipidemia) Current visit: No Status: Chronic Qualifiers: Hyperlipidemia type: other hyperlipidemia Category: Medical Code(s): E78.5 - Hyperlipidemia, unspecified (5) Hiatal hernia Current visit: Yes Status: Acute Category: Medical Code(s): K44.9 - Diaphragmatic hernia without obstruction or gangrene (6) Vitamin D deficiency Current visit: Yes Status: Acute Category: Medical Code(s): E55.9 - Vitamin D deficiency, unspecified (7) Lumbar spondylolysis Current visit: Yes Status: Acute Category: Medical Code(s): M43.06 - Spondylolysis, lumbar region (8) Status post laparoscopic cholecystectomy Current visit: Yes Status: Acute Category: Surgical Code(s): Z90.49 - A cquired absence of other specified parts of digestive tract (9) Hypokalemia Current visit: Yes Status: Acute Category: Medical Code(s): E87.6 - Hypokalemia - Assessment and plan all Dx Assessment and Plan for all problems:: Saw patient, agree with above note. Saline lock IVF today, replace potassium. ERCP tomorrow.
--- NOTE | 2018-12-19 07:35 | Progress Note ---
Subjective Patient reports: no new complaints, feels better Exam Vital signs and Labs for Last 24 Hours: Temp Pulse Resp BP Pulse Ox 98.7 F 73 18 152/76 H 95 12/19/18 04:00 12/19/18 04:00 12/19/18 04:00 12/19/18 04:00 12/19/18 04:00 I & O for Last 24 hours: Intake & Output 12/16/18 12/17/18 12/18/18 12/19/18 11:59 11:59 11:59 11:59 Intake Total 1551 / 1551 2454 / 2454 2512 / 2512 360 / 360 Output Total 2200 / 2200 3300 / 3300 1300 / 1300 600 / 600 Balance -649 / -649 -846 / -846 1212 / 1212 -240 / -240 Weight 113 lb 3.988 oz 113 lb 3 oz 113 lb 7 oz 114 lb 6 oz - *Routine Abdominal Exam Present: soft Comments: Incision clean. Slight distension. Nontender. Progress Note: A&P (1) Cholecystitis Status: Acute Current Visit: Yes (2) Nausea & vomiting Status: Acute Current Visit: Yes (3) Essential hypertension Status: Chronic Current Visit: No (4) HLD (hyperlipidemia) Status: Chronic Current Visit: No (5) Hiatal hernia Status: Acute Current Visit: Yes (6) Vitamin D deficiency Status: Acute Current Visit: Yes (7) Lumbar spondylolysis Status: Acute Current Visit: Yes (8) Status post laparoscopic cholecystectomy Status: Acute Current Visit: Yes (9) Hypokalemia Status: Acute Current Visit: Yes Assessment and Plan for All Diagnoses:: ERCP today.
--- NOTE | 2018-12-19 08:29 | Progress Note ---
<Isis Pereira - Last Filed: 12/19/18 08:25> Internal Medicine - PN: Subj *Date: 12/19/18 *Time: 08:25 Interval history: Patient states she is feeling well this morning. She was able to eat breakfast yesterday but did not feel like eating any other meals. She states her abdomen feels a little less bloated today. It is also less tender. She is passing some gas. She is n.p.o. this morning for an ERCP. Exam Vital signs and Labs for Last 24 Hours: Temp Pulse Resp BP Pulse Ox 98.4 F 72 16 141/67 H 94 L 12/19/18 07:53 12/19/18 07:53 12/19/18 07:53 12/19/18 07:53 12/19/18 07:53 I & O for Last 24 hours: Intake & Output 12/16/18 12/17/18 12/18/18 12/19/18 11:59 11:59 11:59 11:59 Intake Total 1551 / 1551 2454 / 2454 2512 / 2512 360 / 360 Output Total 2200 / 2200 3300 / 3300 1300 / 1300 600 / 600 Balance -649 / -649 -846 / -846 1212 / 1212 -240 / -240 Weight 113 lb 3.988 oz 113 lb 3 oz 113 lb 7 oz 114 lb 6 oz - Constitutional no acute distress - *Routine Respiratory Exam Present: CTA bilaterally - *Routine Cardiovascular Exam Present: RRR - *Routine Abdominal Exam Present: soft, normoactive bowel sounds, tenderness (less today, only around surgical sites) - *Routine Extremities Exam Absent: cyanosis, clubbing, edema Assessment and Plan (1) Cholecystitis Current visit: Yes Status: Acute Category: Medical Code(s): K81.9 - Cholecystitis, unspecified (2) Nausea & vomiting Current visit: Yes Status: Acute Category: Medical Code(s): R11.2 - Nausea with vomiting, unspecified (3) Essential hypertension Current visit: No Status: Chronic Category: Medical Code(s): I10 - Essential (primary) hypertension (4) HLD (hyperlipidemia) Current visit: No Status: Chronic Qualifiers: Hyperlipidemia type: other hyperlipidemia Category: Medical Code(s): E78.5 - Hyperlipidemia, unspecified (5) Hiatal hernia Current visit: Yes Status: Acute Category: Medical Code(s): K44.9 - Diaphragmatic hernia without obstruction or gangrene (6) Vitamin D deficiency Current visit: Yes Status: Acute Category: Medical Code(s): E55.9 - Vitamin D deficiency, unspecified (7) Lumbar spondylolysis Current visit: Yes Status: Acute Category: Medical Code(s): M43.06 - Spondylolysis, lumbar region (8) Status post laparoscopic cholecystectomy Current visit: Yes Status: Acute Category: Surgical Code(s): Z90.49 - Acquired absence of other specified parts of digestive tract (9) Hypokalemia Current visit: Yes Status: Acute Category: Medical Code(s): E87.6 - Hypokalemia - Assessment and plan all Dx Assessment and Plan for all problems:: Patient is n.p.o. for an ERCP today. <Harshal Rojas - Last Filed: 12/19/18 08:45> Internal Medicine - PN: Subj *Date: 12/19/18 *Time: 08:44 Exam Vital signs and Labs for Last 24 Hours: Temp Pulse Resp BP Pulse Ox 98.4 F 72 16 141/67 H 94 L 12/19/18 07:53 12/19/18 07:53 12/19/18 07:53 12/19/18 07:53 12/19/18 07:53 I & O for Last 24 hours: Intake & Output 12/16/18 12/17/18 12/18/18 12/19/18 23:59 23:59 23:59 23:59 Intake Total 2783 / 2783 2116 / 2116 1588 / 1588 0 / 0 Output Total 3025 / 3225 1575 / 1775 1700 / 1700 Balance -242 / -442 541 / 341 -112 / -112 0 / 0 Weight 113 lb 3.988 oz 113 lb 3 oz 113 lb 7 oz 114 lb 6 oz Assessment and Plan (1) Cholecystitis Current visit: Yes Status: Acute Category: Medical Code(s): K81.9 - Cholecystitis, unspecified (2) Nausea & vomiting Current visit: Yes Status: Acute Category: Medical Code(s): R11.2 - Nausea with vomiting, unspecified (3) Essential hypertension Current visit: No Status: Chronic Category: Medical Code(s): I10 - Essential (primary) hypertension (4) HLD (hyperlipidemia) Current visit: No Status: Chronic Qualifiers: Hyperlipidemia type: other hyperlipidemia Category: Medical Code(s): E78.5 - Hyperlipidemia, unspecified (5) Hiatal hernia Current visit: Yes Status: Acute Category: Medical Code(s): K44.9 - Diaphragmatic hernia without obstruction or gangrene (6) Vitamin D deficiency Current visit: Yes Status: Acute Category: Medical Code(s): E55.9 - Vitamin D deficiency, unspecified (7) Lumbar spondylolysis Current visit: Yes Status: Acute Category: Medical Code(s): M43.06 - Spondylolysis, lumbar region (8) Status post laparoscopic cholecystectomy Current visit: Yes Status: Acute Category: Surgical Code(s): Z90.49 - Acquired absence of other specified parts of digestive tract (9) Hypokalemia Current visit: Yes Status: Acute Category: Medical Code(s): E87.6 - Hypokalemia - Assessment and plan all Dx Assessment and Plan for all problems:: Saw patient, agree with above note.
--- NOTE | 2018-12-19 14:46 | Procedure Note ---
[facility] Procedure Note Procedure Note:: ERCP procedure Report: Endoscopic retrograde cholangiopancreatography with biliary sphincterotomy and stone extraction Endoscopist: Liang Sanhcez II, MD Referring Physician: Robe Salinas MD Date of Procedure: December 19, 2018 Equipment: Olympus 180 side viewing endoscope duodenoscope Sedation: MAC sedation Indication: Mrs. Clifton is an 78-year-old female admitted with abdominal pain in the epigastrium brought in 1 week ago with pain most of the day. She had associated nausea. Her CAT scan of the abdomen did show a dilated biliary system as well as a soft tissue density/inflammation in the third portion of the duodenum. The patient has improved but did have some nausea yesterday. She did have moderate belching and some bloating. An ultrasound of the gallbladder did show a small amount of pericholecystic fluid and a distended gallbladder. The patient had an MRCP today/MRI that shows gallbladder distention with some pericholecystic fluid. The common bile duct/common hepatic duct proximally was dilated and there is tapering down in the distal CBD. There were no filling defects/stones identified. The patient's total bilirubin was 2.7 tapering down to 1.3 and today was 0.7. Her alkaline phosphatase went from 111 up to 152 and today is 218. Her ALT level was 271 and today is 226. The patient was seen later by Dr. Robe Salinas. Cholecystectomy was performed and the intraoperative cholangiogram showed a defect at the distal common bile duct with dilation of the biliary system. The patient's abdominal pain has resolved. The patient does have some borderline anemia. Procedure: Prior to the procedure, a history and physical exam was performed, and patient's medications and allergies were reviewed. The risks, benefits and alternatives of the sedation and procedure were discussed with the patient. All questions were answered and informed consent was obtained. The patient was brought to the fluoroscopic radiology room. Patient identification and proposed procedure were verified by the physician and the nurse. The patient was placed in a swimmer's position between left lateral decubitus and prone position and the scope was passed under direct vision. Throughout the procedure, the patient's blood pressure, pulse, and oxygen saturations were monitored continuously. The ERCP was accomplished without difficulty. The patient tolerated the procedure well. Findings: The side-viewing scope was advanced directly into the upper esophagus and advanced to the second portion of the duodenum. There was some reactive gastropathy of the antrum with erosion. There were 2 duodenal diverticula in the second/third portion of the duodenum. The ampulla was well visualized. Both the pancreatic duct and common bile duct were cannulated. The pancreatic duct was cannulated with a guidewire and a limited pancreatogram did show a normal pancreatic duct in the head and neck of the pancreas. Full filling of the pancreas with contrast was not performed. The common bile duct was freely cannulated and the cholangiogram did show a dilated common bile duct to 13 or 14 mm. There was a filling defect consistent with a common bile duct stone/choledocholithiasis and this was approximately 8 to 9 mm in diameter. A biliary sphincterotomy was performed. Next, a sweeping balloon was placed at the hilum and on the third sweep generated a 8 to 9 mm yellow-brown solid CBD stone. There was some moderate debris. A fourth clearance yielded no additional stone or debris and a repeat cholangiogram showed no further filling defects. Impression: 1. Choledocholithiasis (8 to 9 mm common bile duct stone with biliary debris) status post biliary clearance Plan: The patient can follow-up when necessary. She should have resolution of symptoms and improvement of biliary chemistries. I will discuss the findings with the patient and family.
--- NOTE | 2018-12-20 08:27 | Progress Note ---
Subjective Patient reports: feels better Narrative: Patient feels much better after ERCP. Tolerating clear liquid diet without any difficulty. Exam Vital signs and Labs for Last 24 Hours: Temp Pulse Resp BP Pulse Ox 98.5 F 72 18 165/76 H 96 12/20/18 08:00 12/20/18 08:00 12/20/18 08:00 12/20/18 08:00 12/20/18 08:00 I & O for Last 24 hours: Intake & Output 12/17/18 12/18/18 12/19/18 12/20/18 11:59 11:59 11:59 11:59 Intake Total 2454 / 2454 2512 / 2512 360 / 360 1740 / 1740 Output Total 3300 / 3300 1300 / 1300 600 / 600 Balance -846 / -846 1212 / 1212 -240 / -240 1740 / 1740 Weight 113 lb 3 oz 113 lb 7 oz 114 lb 6 oz 116 lb - *Routine Abdominal Exam Present: soft. Absent: tenderness Progress Note: A&P (1) Cholecystitis Status: Acute Current Visit: Yes (2) Nausea & vomiting Status: Acute Current Visit: Yes (3) Essential hypertension Status: Chronic Current Visit: No (4) HLD (hyperlipidemia) Status: Chronic Current Visit: No (5) Hiatal hernia Status: Acute Current Visit: Yes (6) Vitamin D deficiency Status: Acute Current Visit: Yes (7) Lumbar spondylolysis Status: Acute Current Visit: Yes (8) Status post laparoscopic cholecystectomy Status: Acute Current Visit: Yes (9) Hypokalemia Status: Acute Current Visit: Yes Assessment and Plan for All Diagnoses:: Check stool PCR, advance diet. Possible discharge later.
--- NOTE | 2018-12-20 08:54 | Progress Note ---
Internal Medicine - PN: Subj *Date: 12/20/18 *Time: 08:51 Interval history: Patient had ERCP with retained common bile duct stone removal yesterday. She reports feeling a lot better as soon as she awoke from the procedure. She did have several episodes of diarrhea over night. Exam Vital signs and Labs for Last 24 Hours: Temp Pulse Resp BP Pulse Ox 98.5 F 72 18 165/76 H 96 12/20/18 08:00 12/20/18 08:00 12/20/18 08:00 12/20/18 08:00 12/20/18 08:00 Vital Signs - 24 hr 12/19/18 11:14 12/19/18 14:40 12/19/18 14:48 Temperature 98.6 F 98.8 F 98.8 F Pulse Rate [Left Brachial] Pulse Rate [Right Brachial] 75 99 H 99 H Respiratory Rate 18 16 16 Blood Pressure [Left Arm] 150/70 H 124/76 124/76 02 Sat by Pulse Oximetry 96 100 100 12/19/18 14:58 12/19/18 15:05 12/19/18 15:20 Temperature 98.4 F 98.4 F 97.8 F Pulse Rate [Left Brachial] Pulse Rate [Right Brachial] 93 H 90 86 Respiratory Rate 16 16 16 Blood Pressure [Left Arm] 144/83 H 152/93 H 166/88 H 02 Sat by Pulse Oximetry 96 97 93 L 12/19/18 15:35 12/19/18 15:50 12/19/18 16:05 Temperature 98.5 F 98.7 F 98.7 F Pulse Rate [Left Brachial] Pulse Rate [Right Brachial] 78 81 82 Respiratory Rate 18 18 16 Blood Pressure [Left Arm] 163/83 H 155/81 H 158/51 H 02 Sat by Pulse Oximetry 95 95 94 L 12/19/18 16:20 12/19/18 16:50 12/19/18 17:20 Temperature 98.7 F 98.7 F 99.1 F Pulse Rate [Left Brachial] Pulse Rate [Right Brachial] 77 73 74 Respiratory Rate 18 18 18 Blood Pressure [Left Arm] 158/77 H 166/80 H 162/85 H 02 Sat by Pulse Oximetry 96 96 94 L 12/19/18 18:20 12/19/18 19:20 12/19/18 20:00 Temperature 99.0 F 99.0 F 98.4 F Pulse Rate [Left Brachial] Pulse Rate [Right Brachial] 74 72 77 Respiratory Rate 18 18 19 Blood Pressure [Left Arm] 152/80 H 162/79 H 157/71 H 02 Sat by Pulse Oximetry 94 L 96 97 12/19/18 21:25 12/20/18 00:00 12/20/18 03:48 Temperature 98.7 F 98.1 F Pulse Rate [Left Brachial] 77 71 73 Pulse Rate [Right Brachial] Respiratory Rate 19 16 17 Blood Pressure [Left Arm] 150/77 H 157/78 H 02 Sat by Pulse Oximetry 97 96 96 12/20/18 08:00 Temperature 98.5 F Pulse Rate [Left Brachial] 72 Pulse Rate [Right Brachial] Respiratory Rate 18 Blood Pressure [Left Arm] 165/76 H 02 Sat by Pulse Oximetry 96 I & O for Last 24 hours: Intake & Output 12/17/18 12/18/18 12/19/18 12/20/18 23:59 23:59 23:59 23:59 Intake Total 2116 / 2116 1588 / 1588 1060 / 1060 680 / 680 Output Total 1575 / 1775 1700 / 1700 Balance 541 / 341 -112 / -112 1060 / 1060 680 / 680 Weight 113 lb 3 oz 113 lb 7 oz 114 lb 6 oz 116 lb - Constitutional no acute distress - *Routine HEENT Exam Head: Present: normocephalic Eye: Present: EOMI ENT: Present: mucous membranes moist - *Routine Neck Exam Present: supple. Absent: lymphadenopathy - *Routine Respiratory Exam Present: CTA bilaterally - *Routine Cardiovascular Exam Present: RRR - *Routine Abdominal Exam Present: soft, normoactive bowel sounds, tenderness (minimal periumbilical) - *Routine Extremities Exam Absent: cyanosis, clubbing, edema - *Routine Skin Exam Present: warm. Absent: rash - *Routine Neurological Exam Present: alert, oriented X3 Assessment and Plan (1) Cholecystitis Current visit: Yes Status: Acute Category: Medical Code(s): K81.9 - Cholec ystitis, unspecified (2) Nausea & vomiting Current visit: Yes Status: Acute Category: Medical Code(s): R11.2 - Nausea with vomiting, unspecified (3) Essential hypertension Current visit: No Status: Chronic Category: Medical Code(s): I10 - Essential (primary) hypertension (4) HLD (hyperlipidemia) Current visit: No Status: Chronic Qualifiers: Hyperlipidemia type: other hyperlipidemia Category: Medical Code(s): E78.5 - Hyperlipidemia, unspecified (5) Hiatal hernia Current visit: Yes Status: Acute Category: Medical Code(s): K44.9 - Diaphragmatic hernia without obstruction or gangrene (6) Vitamin D deficiency Current visit: Yes Status: Acute Category: Medical Code(s): E55.9 - Vitamin D deficiency, unspecified (7) Lumbar spondylolysis Current visit: Yes Status: Acute Category: Medical Code(s): M43.06 - Spondylolysis, lumbar region (8) Status post laparoscopic cholecystectomy Current visit: Yes Status: Acute Category: Surgical Code(s): Z90.49 - Acquired absence of other specified parts of digestive tract (9) Hypokalemia Current visit: Yes Status: Acute Category: Medical Code(s): E87.6 - Hypokalemia (10) Diarrhea Current visit: Yes Status: Acute Category: Medical Code(s): R19.7 - Diarrhea, unspecified (11) Common bile duct stone Current visit: Yes Status: Acute Category: Medical Code(s): K80.50 - Calculus of bile duct without cholangitis or cholecystitis without obstruction - Assessment and plan all Dx Assessment and Plan for all problems:: Stool for C. diff has been ordered, recheck labs this morning, advance diet.
[2018-12-20 09:45] LABS: Basophils % 0.4 % (0.1-2.0); Eosinophils # 0.1 K/mm3 (0.0-0.4); Eosinophils % 2.5 % (0.1-12.0); Hematocrit 34.2 % (37.0-47.0); Hemoglobin 10.3 g/dL (12.2-16.2); Lymphocytes # 0.6 K/mm3 (0.7-4.5); Lymphocytes % 9.8 % (10-50); Mean Corpuscular HGB Conc 30.3 g/dL (31.8-35.4); Mean Corpuscular Hemoglobin 27.3 pg (27.0-31.2); Mean Corpuscular Volume 90.1 fl (81-99); Mean Platelet Volume 8.5 fl (7.4-10.4); Monocytes # 0.3 K/mm3 (0.1-1.0); Monocytes % 5.9 % (1.7-9.3); Neutrophils # 4.7 K/mm3 (1.8-7.8); Neutrophils % 81.4 % (37.0-80.0); Platelet Count 270 K/mm3 (142-424); Red Cell Distribution Width 14.4 % (11.5-17.5); White Blood Count 5.7 K/mm3 (4.8-10.8)
[2018-12-20 09:57] LABS: Albumin Level 2.9 gm/dL (3.4-5.0); Albumin/Globulin Ratio 0.9 (1.1-1.8); Anion Gap 15.9 mEq/L (5-15); Bilirubin,Total 0.9 mg/dL (0.2-1.0); Globulin 3.3 gm/dl (1.3-3.2); Potassium 3.9 mmoL/L (3.5-5.1); Total Protein,Serum 6.2 gm/dL (6.4-8.2)
[2018-12-20 10:13] LABS: Calcium 7.8 mg/dL (8.5-10.1)
--- NOTE | 2018-12-22 13:12 | Discharge Summary ---
General - General Admission date:: 12/13/18 Discharge date: 12/20/18 HPI HPI: Patient is a 78 year old female that presented to our ED with abdominal pain that started from yesterday's morning. She mentioned that her pain was mostly on RUQ and epigastric region. She was having bouts of nausea and vomiting but denies having any diarrhea. She was also having chills at home and mentions that she wasn't tolerating anything by mouth. She did come to our office earlier that day and was seen by our PA, who set her up for US of abdomen on Saturday as she was having positive fisher's sign in the office along with her symptoms. However, patient mentioned that she didn't think she could get through the weekend, so she came into our ED for further evaluation. CT scan from ED showed distended gallbladder with intra and extrahepatic biliary ductal dilation. Hospital Course Hospital Course: The patient was admitted and surgery was consulted. She had no further nausea or vomiting episodes. Her bilirubin was initially elevated but did trend down. Her other LFT's remained elevated. She was able to tolerate a liquid diet. She was started on pain medication and IV antibiotics. She was seen by Dr. Funk of surgery who reviewed her right upper quadrant ultrasound. It showed no cholelithiasis, questionable sludge, and no pericholecystic fluid. She also developed some anemia with her hemoglobin trending down. Dr. Funk felt she would need an EGD and colonoscopy prior to any biliary surgery. He also felt an ERCP and/or MRCP should be considered. He felt her symptoms were most likely reflective of chronic anemia and symptomatic cholelithiasis. GI was therefore consulted. She was seen by Dr. Sanchez who performed an EGD with cold biopsies. He found superficial prepyloric gastric ulceration with some proximal stomach chronic gastritis. He did not feel there was any abnormality in the third portion of the duodenum as the intital CAT scan eluded. He recommended cholecystectomy because of imaging evidence of cholecystitis. He also felt an intraoperative cholangiogram should be performed. He felt if her alkaline phosphatase continue to rise, she may need an ERCP. The patient had an MRCP showing a dilated common hepatic duct. There was a bandlike area of narrowing just distal to the cystic duct insertion. Radiology felt this could be due to a small stricture. There was layering debris within the gallbladder which may be due to small stones and/or sludge. Due to patient's MRCP results and recommendations by Dr. Sanchez, Dr. Salinas did perform a laparoscopic cholecystectomy with intraoperative cholangiogram. The patient had a massively distended gallbladder which was slightly thickened and edematous with a small amount of pericholecystic fluid. The cystic duct was friable. The gallbladder had a large amount of sludge and debris. The intraoperative cholangiogram revealed prominence of the biliary tree with the previously noted luminal narrowing at the confluence of the cystic duct and common hepatic duct with a filling defect in the distal common bile duct consistent with either a lesion versus a stone or debris. There was no obstruction. It was felt the patient will need an ERCP. She did well status post laparoscopic cholecystectomy and was up and ambulating around the room and tolerating a diet. The patient's ERCP showed choledocholithiasis. There was an 8- 9 mm common bile duct stone with biliary debris present. This was cleared and Dr. Sanchez felt the patient could follow- up as necessary and should have resolution of her symptoms and improvement of her biliary chemistries. She felt much better after the ERCP and tolerated a clear liquid diet without any difficulty. She was having some diarrhea, therefore a diarrhea panel was ordered. It was positive for Campylobacter, therefore she was started on Zithromax as an outpatient and was stable to be discharged home and follow-up in the office in 3 days. Objective Vital signs: Temp Pulse Resp BP Pulse Ox 98.6 F 71 17 140/72 96 12/20/18 10:58 12/20/18 10:58 12/20/18 10:58 12/20/18 10:58 12/20/18 10:58 Narrative: - Constitutional no acute distress - *Routine HEENT Exam Head: Present: normocephalic Eye: Present: EOMI ENT: Present: mucous membranes moist - *Routine Neck Exam Present: supple. Absent: lymphadenopathy - *Routine Respiratory Exam Present: CTA bilaterally - *Routine Cardiovascular Exam Present: RRR - *Routine Abdominal Exam Present: soft, normoactive bowel sounds, tenderness (minimal periumbilical) - *Routine Extremities Exam Absent: cyanosis, clubbing, edema - *Routine Skin Exam Present: warm. Absent: rash - *Routine Neurological Exam Present: alert, oriented X3 DS: Diagnosis - Discharge Diagnosis (1) Cholecystitis Status: Acute (2) Nausea & vomiting Status: Acute (3) Essential hypertension Status: Chronic (4) HLD (hyperlipidemia) Status: Chronic (5) Hiatal hernia Status: Acute (6) Vitamin D deficiency Status: Acute (7) Lumbar spondylolysis Status: Acute (8) Status post laparoscopic cholecystectomy Status: Acute (9) Hypokalemia Status: Acute (10) Diarrhea Status: Acute (11) Common bile duct stone Status: Acute Discharge Plan - Patient Discharge Instructions ACTIVITY: Continue current activity DIET: continue same diet Patient Instructions: [place] Diet, DI for Cholecystectomy, DI for Gallstones, DI for Surgical Site Infection, Cholecystectomy -- Laparoscopic Surgery, DI for Cholecystitis - Follow up Plan Follow up with: Harshal Rojas MD [Primary Care Provider] - 12/23/18 Robe Salinas MD [Staff Physician] - 1 week Disposition: Home, Self-Long-Term Medications: Home Medications Medication Instructions Recorded Confirmed Type aspirin 81 mg tablet,delayed 81 mg PO DAILY tab 12/20/17 12/13/18 History release cholecalciferol (vitamin D3) 2,000 1,000 iunits PO BID cap 12/20/17 12/13/18 History unit capsule folic acid 0.8 mg capsule 400 mcg PO DAILY cap 12/20/17 12/13/18 History simvastatin 20 mg tablet 20 mg PO HS 12/20/17 12/13/18 History triamterene 37.5 1 tab PO DAILY tab 12/20/17 12/13/18 History mg-hydrochlorothiazide 25 mg tablet vitamin E (dl, acetate) 100 unit 400 unit PO BID 12/20/17 12/13/18 History capsule vitamins A,C,L-gxmd-udvbuh 14,320 1 cap PO BID cap 12/20/17 12/13/18 History unit-226 mg-200 unit capsule diazepam 5 mg tablet 5 mg PO HSP PRN tab 12/23/17 12/13/18 History [place]-3S/Dha/Epa/Fish Oil [Fish 1 each PO BID 06/11/18 12/13/18 History Oil 1,200 mg Softgel] naproxen sodium 220 mg capsule 220 mg PO DAILY PRN cap 07/08/18 12/13/18 History Dextran 70/Hypromellose/Pf 1 each OP QID 12/12/18 12/13/18 History [Genteal Tears 0.1%-0.3% Drop] Multivit-Min/Iron/Folic/Lutein 1 each PO DAILY 12/12/18 12/13/18 History [Centrum Silver Women Tablet] Valsartan 80 mg PO DAILY 12/13/18 12/13/18 History Azithromycin [Zithromax 500mg Tab 500 mg PO DAILY #3 tab 12/20/18 Rx Tri-Erik] Ondansetron HCl [Ondansetron 4mg 4 mg PO Q6HP PRN #20 tab 12/20/18 Rx Tablet] Prescriptions/Medication Reconciliation: New Azithromycin [Zithromax 500mg Tab Tri-Erik] 500 mg PO DAILY #3 tab Continued folic acid 0.8 mg capsule 400 mcg PO DAILY cap aspirin 81 mg tablet,delayed release 81 mg PO DAILY tab vitamin E (dl, acetate) 100 unit capsule 400 unit PO BID triamterene 37.5 mg-hydrochlorothiazide 25 mg tablet 1 tab PO DAILY tab vitamins A,C,X-xcmk-cjrgwv 14,320 unit-226 mg-200 unit capsule 1 cap PO BID cap simvastatin 20 mg tablet 20 mg PO HS diazepam 5 mg tablet 5 mg PO HSP PRN tab PRN Reason: Sleep naproxen sodium 220 mg capsule 220 mg PO DAILY PRN cap PRN Reason: pain cholecalciferol (vitamin D3) 2,000 unit capsule 1,000 iunits PO BID cap [place]-3S/Dha/Epa/Fish Oil [Fish Oil 1,200 mg Softgel] 1 each PO BID Ondansetron HCl [Ondansetron 4mg Tablet] 4 mg PO Q6HP PRN #20 tab PRN Reason: Nausea Multivit-Min/Iron/Folic/Lutein [Centrum Silver Women Tablet] 1 each PO DAILY Dextran 70/Hypromellose/Pf [Genteal Tears 0.1%-0.3% Drop] 1 each OP QID Valsartan 80 mg PO DAILY Discontinued levoFLOXacin [Levaquin 500mg tab] 500 mg PO DAILY
== END 2018-12-20 15:50 | disposition home or self-care (01) | DRG 418 ==
LOC: ER 21:21 → 2ND 21:21 → OBSVTOIN 12-13 01:35 → 2ND 12-13 01:35
PROVIDERS: ADMIT Emergency Medicine; ATTEND Family Medicine
CPT/HCPCS: 36415; 74177; 74181; 74300; 74330; 76000; 76376; 76705; 80048; 80053; 80076; 81001; 82150; 83605; 83690; 84484; 85007; 85025; 85651; 86140; 87040; 87506; 88304; 88305; 93005; 96365; 96367; 96372; 96375; 99285; J0897; J2405; J2543; J2710; Q9967

== ENCOUNTER → 2018-12-29 10:18 | Outpatient (POV) | payer MEDICARE, SELFPAY ==
--- NOTE | 2018-12-29 10:22 | NVE_ITS ---
Venous Exam Indications: 729.5 Pain in limb. Post op tony IMPRESSIONS 1. There is no evidence of significant Reflux. 2. No evidence of deep or superficial vein thrombosis involving the left lower extremity Left lower extremity venous duplex evaluation. Doppler flow study including spectral analysis, color and chapman scale imaging. Location: Vascular laboratory. Patient status: Outpatient. CRITICAL FINDINGS - Reported to: Neisha - Read back and verified. - 12/29/18 - 1040 - None Tables: Venous flow and imaging: + +-------+ + Location Overall Flow properties + +-------+ + Left common femoral Patent Normal phasicity; spontaneous; normal augmentation; compressible + +-------+ + Left saphenofemoral junction Patent Compressible + +-------+ + Left profunda femoral Patent Compressible + +-------+ + Left femoral Patent Normal phasicity; spontaneous; normal augmentation; compressible + +-------+ + Left greater saphenous Patent Normal phasicity; spontaneous; normal augmentation; compressible + +-------+ + Left popliteal Patent Normal phasicity; spontaneous; normal augmentation; compressible + +-------+ + Left posterior tibial Patent Compressible + +-------+ + Left peroneal Patent Compressible + +-------+ + Left gastrocnemius Patent Compressible + +-------+ + Left soleal Patent Compressible + +-------+ + (Report amended ) Electronically signed by: Doug Albright [id number]
== END ==
PROVIDERS: PCP Family Medicine; Referring Provider Surgery; Visit Provider Nurse Practitioner Family
DX: M79.605 Pain in left leg; Z98.890 Other specified postprocedural states
CPT/HCPCS: 93971

== ENCOUNTER → 2019-01-13 12:39 | Outpatient (CLI) | payer MEDICARE, SELFPAY ==
--- NOTE | 2019-01-13 12:40 | CA_ITS ---
PROCEDURE: 2-D M-mode and color Doppler study INDICATIONS FOR THE TEST: Chest pain+ COPD Heart Murmur+ Tobacco Smoking Palpitations Fatigue Syncope Edema+ Hypertension+Diabetes Mellitus Rheumatic Fever SOB+DE LEON Obesity Hyperlipidemia= Family History HD Additional History PUL HTN PATIENT INFORMATION HEIGHT: 58 WEIGHT:107 GENDER: Female B/P: 97/56 2-D/M-MODE INTERPRETATION: 2-D MEASUREMENTS OBSERVED VALUES IN CMS Right Ventricular Dimension (RVDd) 1.4 Interventricular Septum (Thickness)(IVsd) 0.6 Left Ventricular Internal Dimensions(LVIDd) 4.4 Left Ventricular Posterior Wall (Thickness)(LVPWd) 0.6 Aortic Root 2.2 Aortic Cusp Separation 1.6 Left Atrial Dimensions (LAD) 3.3 2D 1. Left atrium is mildly enlarged, left ventricle is normal size, mild concentric left ventricular hypertrophy, visually estimated ejection fraction 55% with no regional wall motion abnormality. 2. The right atrium and right ventricle are mildly enlarged with normal contractility. 3. 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 4. The aortic valve is thickened and calcified leaflet continue to display mobility. 5. The mitral and tricuspid valve leaflets are minimally thickened. 6. No significant pericardial effusion noted. DOPPLER INTERROGATION: Doppler interrogation of the aortic, mitral and tricuspid valvular presence of mild aortic, mild mitral and tricuspid regurgitation, calculated right ventricular systolic pressure is 40 mmHg consistent with mild pulmonary hypertension, grade 1 diastolic dysfunction seen with tissue Doppler evidence of raised left atrial pressure, there is no obvious flow across the intra-atrial septum. CONCLUSION: 1. Mild biatrial enlargement, normal left ventricular size, mild concentric left ventricular hypertrophy, visually estimated ejection fraction 55% with no regional wall motion abnormality, grade 1 diastolic dysfunction seen with tissue Doppler evidence of raised left atrial pressure. 2. Mildly enlarged right ventricle with normal contractility. 3. Mild aortic, mild mitral and tricuspid regurgitation, calculated right ventricular systolic pressure is 40 mmHg consistent with mild pulmonary hypertension. 4. 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 5. No significant pericardial effusion noted.
== END ==
PROVIDERS: PCP Family Medicine; Visit Provider Urology
DX: I27.20 Pulmonary hypertension, unspecified (principal); R06.00 Dyspnea, unspecified
CPT/HCPCS: 93306

== ENCOUNTER → 2019-04-10 16:12 | Outpatient (CLI) | payer MEDICARE, SELFPAY ==
--- NOTE | 2019-04-10 | XR_ITS ---
PROCEDURE: XR FINGER RT MIN 2V CLINICAL INDICATION: Pain and redness at the distal 3rd digit COMPARISON: No exams were available for comparison FINDINGS: There are severe osteoarthritic changes at the DIP joint of the 3rd digit as well as the 2nd and 4th digits and the PIP joint of the 4th digit. Prominent bony spurring noted at the DIP joint of the 3rd digit. No fracture or dislocation. No lytic or blastic change IMPRESSION: Osteoarthritis with prominent bony spurring Dictated by: Doug Albright MD 04/10/2019 17:09 Electronically signed by Doug Albright MD in [place] 04/10/2019 17:09
== END ==
PROVIDERS: PCP Family Medicine; Visit Provider Family Medicine
DX: L03.011 Cellulitis of right finger (principal)
CPT/HCPCS: 73140

== ENCOUNTER → 2019-05-19 13:25 | Outpatient (POV) | payer MEDICARE, SELFPAY | PROVIDERS: Visit Provider Dermatology | DX: Z00.00 Encounter for general adult medical examination without abnormal findings (principal) ==

== ENCOUNTER 2019-06-11 10:45 | Outpatient (CLI) | payer MEDICARE, SELFPAY ==
[2019-06-11 10:50] VITALS: BP 121/61; PULSE 68; RESP 20; TEMP 36.9; O2SAT 95
[2019-06-11 11:15] VITALS: BP 112/74; PULSE 68; RESP 20; TEMP 36.9; O2SAT 95
== END 2019-06-11 11:15 | disposition home or self-care (01) ==
LOC: INF 10:53
PROVIDERS: Visit Provider Family Medicine
DX: M81.0 Age-related osteoporosis without current pathological fracture (principal)
CPT/HCPCS: 96372; J0897

== ENCOUNTER → 2019-10-22 10:51 | Outpatient (CLI) | payer MEDICARE, SELFPAY ==
--- NOTE | 2019-10-22 10:56 | XR_ITS ---
PROCEDURE: XR ABDOMEN MIN 2V CLINICAL INDICATION: CONSTIPATION COMPARISON: ABDPELW CT abdomen pelvis w con from 12/12/2018 FINDINGS: Postsurgical changes of the lumbar spine. Please see L-spine report from the same day. There are gas-filled loops of small and large bowel with some air-fluid levels noted in both large and small bowel without significant distension. Ileus or enterocolitis is considered. No free air. Calcific densities are present in the left upper quadrant nonspecific IMPRESSION: Ileus versus enterocolitis Dictated by: Doug Albright MD 10/22/2019 12:36 Electronically signed by Doug Albright MD in [place] 10/22/2019 12:36
--- NOTE | 2019-10-22 10:56 | XR_ITS ---
PROCEDURE: XR LUMBAR SPINE MIN 4V CLINICAL INDICATION: LOW BACK PAIN,DDD, COMPARISON: ABDPELW CT abdomen pelvis w con from 12/12/2018 FINDINGS: Prior laminectomy at L4-5. There are inter pedicular screws with connecting rods from L3-S1 with a longer oblique screw from the sacrum into the ilium on each side. Hyperdense material noted within the central aspect of L3 and at the L5-S1 disc space. There is anterolisthesis of L4 on L5 of 12 mm and L5 on S1 of 15 mm. The there are wedge compression changes involving the superior endplate of L2 which is similar compared to the previous CT scan of 12/12/2018 there is also compression changes involving the inferior endplate of L1 with underlying sclerosis of the endplates at L1-L2. There is mild thoracolumbar curvature convex right IMPRESSION: Postsurgical changes from L3 to the sacrum as described above with anterolisthesis of L4 on L5 and L5 on S1 Compression changes are present involving the inferior endplate of L1 and the superior endplate of L2 which may be slightly progressed compared to the previous CT scan. There is sclerosis of the endplates at these areas. Dictated by: Doug Albright MD 10/22/2019 12:34 Electronically signed by Doug Albright MD in [place] 10/22/2019 12:34
== END ==
PROVIDERS: PCP Family Medicine; Visit Provider Family Medicine
DX: K59.00 Constipation, unspecified (principal); M54.5 Low back pain; M43.16 Spondylolisthesis, lumbar region; M51.36 Other intervertebral disc degeneration, lumbar region
CPT/HCPCS: 72110; 74019

== ENCOUNTER → 2019-11-11 07:43 | Outpatient (CLI) | payer MEDICARE, SELFPAY ==
--- NOTE | 2019-11-11 07:48 | MR_ITS ---
PROCEDURE: MR LUMBAR SPINE WO CON CLINICAL INDICATION: RIGHT-SIDED LOW BACK PAIN, LUMBAR DDD COMPARISON: ABDPELW CT abdomen pelvis w con from 12/12/2018 XR LUMBAR SPINE MIN 4V from 10/22/2019 TECHNIQUE: Standard multiplanar multiecho sequences are performed without contrast. 3-D MIP and myelographic images are also rendered and reviewed FINDINGS: The spinal cord ends at the L1 level. There is kyphosis of the thoracolumbar junction with degenerative disc disease at T11-T12 with bulging disc which abuts the anterior aspect of the cord with bilateral foraminal narrowing. T11-T12: Fusion of the vertebral bodies. There is retrolisthesis of T11 of 5 mm. There is bilateral foraminal narrowing. T12-L1: Unremarkable. L1-L2: Concave compression deformity involves the inferior aspect of L1 and the superior aspect of L2 with mild compressive changes involving the L2 vertebral body and retrolisthesis of the posterior superior aspect of L2 by approximately 6 mm with resultant canal stenosis and severe the bilateral lateral recess and foraminal narrowing. Bone marrow edema involves the inferior aspect of the L1 vertebral body and the superior aspect of the L2 vertebral body on the left. The compression deformity of L2 is not significantly changed from a CT scan of 12/12/2018. The minimal concave compression deformity of the inferior aspect of L1 appears slightly worse compared to the previous CT with some bone marrow edema at this area suggesting acute compressive changes. L2-L3: Bulging disc with facet and ligamentum hypertrophy with moderate bilateral lateral recess narrowing and moderate bilateral foraminal narrowing. L3-L4: Artifact is present from inter pedicular screws with connecting rods from L3 to the upper sacrum. There is bulging disc at L3-L4. Posterior laminectomy defect present at L3-L4 L4-5: Severe degenerative disc disease with 9 mm anterolisthesis of L4 and significant artifact from inter pedicular screws and connecting rods. This had a similar appearance on the previous CT scan. L5-S1: Severe degenerative disc disease with 8 mm anterolisthesis of L5. Artifact is present from the inter pedicular screws and connecting rods. There is a disc spacer device is well. These findings have a similar appearance on the previous CT scan. IMPRESSION: 1. Abnormal MRI of the lumbar spine with extensive postsurgical changes with artifact from the inter pedicular screws and connecting rods. There is severe degenerative disc disease with laminectomies at L4-L5 and S1 with 9 mm anterolisthesis of L4 and 8 mm anterolisthesis of L5. These findings and had a similar appearance on the previous CT scan. There also appears to been prior fusion at T11-T12 with 5 mm retrolisthesis of T11. 2. Compression deformity the inferior aspect of L1 which appears acute and the superior aspect of L2 which is chronic with retropulsion of the superior aspect of L2 with bulging disc at that level and facet ligamentum hypertrophy with resultant canal stenosis and severe bilateral lateral recess and foraminal narrowing. 3. Bulging disc at L2-L3 with bilateral lateral recess and foraminal narrowing. 4. Please see above for detailed description at each level. Dictated by: Doug Albright MD 11/13/2019 09:53 Electronically signed by Doug Albright MD in [place] 11/13/2019 09:53
== END ==
PROVIDERS: PCP Family Medicine; Visit Provider Family Medicine
DX: M54.5 Low back pain (principal); M43.16 Spondylolisthesis, lumbar region; M51.36 Other intervertebral disc degeneration, lumbar region
CPT/HCPCS: 72148; 76376

== ENCOUNTER 2019-12-14 10:50 | Outpatient (CLI) | payer MEDICARE, SELFPAY ==
[2019-12-14 11:08] VITALS: BP 169/72; PULSE 70; RESP 18; TEMP 36.6; O2SAT 98
== END 2019-12-14 11:08 | disposition home or self-care (01) ==
LOC: INF 10:53
PROVIDERS: Visit Provider Family Medicine
DX: M81.0 Age-related osteoporosis without current pathological fracture (principal)
CPT/HCPCS: 96372; J0897

== ENCOUNTER 2020-06-14 10:48 | Outpatient (CLI) | payer MEDICARE, SELFPAY ==
[2020-06-14 11:00] VITALS: BP 133/76; PULSE 73; RESP 18; TEMP 36.4; O2SAT 97
== END 2020-06-14 11:20 | disposition home or self-care (01) ==
LOC: INF 10:48
PROVIDERS: Visit Provider Family Medicine
DX: M81.0 Age-related osteoporosis without current pathological fracture (principal)
CPT/HCPCS: 96372; J0897

== ENCOUNTER → 2020-07-08 11:05 | Outpatient (CLI) | payer MEDICARE, SELFPAY ==
--- NOTE | 2020-07-08 11:07 | CA_ITS ---
APPROVED REPORT EXAM: Comprehensive 2D, Doppler, and color-flow Echocardiogram Coal Shoveler: Salud Manzo CRT Ht: 4 ft 7 in Wt: 109lbs BSA: 1.35 BP: 137/65 mmHg Indications: Hyperlipidemia, Hypertension/HDD, DD, GERD, PHTN 2D Dimensions LVOT 1.73 cm (M/F) 1.5-2.5 M-Mode Dimensions RVDd 2.17 cm (0.9-2.6) LA Diam 3.31 cm (1.9-4.0) LVDd 3.06 cm (3.5-5.7) Ao Diam 3.37 cm (2.0-3.7) LVDs 2.28 cm (3.5-5.7) IVSd 2.01 cm (0.6-1.1) PWd 1.05 cm (0.6-1.1) EF (Teich) 51.80% FS 25.50% EDV (Teich) 36.70 mL ESV (Teich) 17.70 mL LV Diastology E Decel Time 383.00 (160-240 msec) E/A Ratio 0.56 MED E' 7.30 (< 7 cm/sec) MED A' 8.90 cm/s E'/MED E' Ratio 8.79 (>14) LAT E' 3.70 (<10 cm/sec) E/LAT E' Ratio 17.35 (>14) Aortic Valve AI PHT 610.00 ms AO Peak GR. 11.40 mmHg Mitral Valve MV A Velocity 114.00 (40-130 cm/s) E/A Ratio 0.56 MV Decel. Time 383.00 (160-240 ms) Pulmonary Valve PV Peak Velocity 81.00 (50-150 cm/s) Tricuspid Valve TR P. Velocity 239.00 cm/s RAP Estimate 10.00 mmHg RVSP 32.80 mmHg Left Ventricle Left atrium is mildly enlarged, left ventricle is normal size, mild concentric left ventricular hypertrophy, visually estimated ejection fraction 55% with no regional wall motion abnormality, grade 1 diastolic dysfunction seen without tissue Doppler evidence of raise left atrial pressure. Right Ventricle Right atrium and right ventricle are normal size and contractility. Aortic Valve Aortic valve is thickened and calcified there is no aortic stenosis, there is moderate aortic insufficiency. Mitral Valve Mitral valve leaflets are minimally thickened, there is mild mitral regurgitation. Tricuspid Valve Tricuspid valve is grossly normal, there is mild tricuspid regurgitation, calculated right ventricular systolic pressure 30 mmHg. Pulmonic Valve Pulmonic valve is poorly visualized. Great Vessels Aortic root is normal size. Pericardium No significant pericardial effusion noted. Conclusion 1. Mildly enlarged left atrium, normal left ventricular size, mild concentric left ventricular hypertrophy, visually estimated ejection fraction 55% with no regional wall motion abnormality, grade 1 diastolic dysfunction seen without tissue Doppler evidence of raise left atrial pressure. 2. Thickened and calcified aortic valve without aortic stenosis, there is moderate aortic insufficiency. 3. Mild mitral and tricuspid regurgitation. Calculated right ventricular systolic pressure 30 mmHg. 4. No significant pericardial effusion noted. Electronically signed by : Allan Duran, 07/08/2020 12:17:22
== END ==
PROVIDERS: PCP Family Medicine; Visit Provider Urology
DX: I10 Essential (primary) hypertension; I27.20 Pulmonary hypertension, unspecified; I34.0 Nonrheumatic mitral (valve) insufficiency; I35.1 Nonrheumatic aortic (valve) insufficiency; E78.49 Other hyperlipidemia
CPT/HCPCS: 93306

== ENCOUNTER → 2020-08-04 13:56 | Outpatient (CLI) | payer MEDICARE, SELFPAY ==
--- NOTE | 2020-08-04 14:10 | XR_ITS ---
PROCEDURE: XR CHEST PORTABLE CLINICAL HISTORY: COVID TESTING Cough COMPARISON: CR CXR2V XR chest 2V from 02/20/2018 FINDINGS: Normal heart size. There is mild prominence of the mediastinum which may in part be related to tortuosity/ectasia of the thoracic aorta. The lungs are clear without infiltrates, suspicious nodules, or pleural effusions. There has been a prior total shoulder replacement on the right. There are osteoarthritic changes of the left shoulder with a concave defect of the distal left clavicle and the acromion which may be seen with rotator cuff tear and high-riding humeral head. There is some cortical regularity of the humeral head. IMPRESSION: No acute findings. Dictated by: Doug Albright MD 08/04/2020 15:54 Doug Albright MD in [place] 08/04/2020 15:54
[2020-08-04 14:30] LABS: Basophils % 0.5 % (0.1-2.0); Eosinophils # 0.1 K/mm3 (0.0-0.4); Eosinophils % 2.2 % (0.1-12.0); Hematocrit 42.5 % (37.0-47.0); Hemoglobin 13.2 g/dL (12.2-16.2); Lymphocytes # 1.2 K/mm3 (0.7-4.5); Mean Corpuscular HGB Conc 31.1 g/dL (31.8-35.4); Mean Corpuscular Hemoglobin 29.9 pg (27.0-31.2); Mean Platelet Volume 7.2 fl (7.4-10.4); Monocytes # 0.5 K/mm3 (0.1-1.0); Monocytes % 9.5 % (1.7-9.3); Neutrophils # 2.9 K/mm3 (1.8-7.8); Neutrophils % 61.8 % (37.0-80.0); Platelet Count 250 K/mm3 (142-424); Red Blood Count 4.43 M/mm3 (4.20-5.40); Red Cell Distribution Width 12.8 % (11.5-17.5); White Blood Count 4.7 K/mm3 (4.8-10.8)
== END ==
PROVIDERS: PCP Family Medicine; Visit Provider Family Medicine
DX: Z20.822 Contact with and (suspected) exposure to COVID-19 (principal); I10 Essential (primary) hypertension; E78.49 Other hyperlipidemia
CPT/HCPCS: 36415; 71045; 85025; U0003

== ENCOUNTER 2020-12-13 10:52 | Outpatient (CLI) | payer MEDICARE, SELFPAY ==
[2020-12-13 11:01] VITALS: BP 112/69; PULSE 72; RESP 18; TEMP 36.8; O2SAT 96
== END 2020-12-13 11:10 | disposition home or self-care (01) ==
LOC: INF 10:52
PROVIDERS: Visit Provider Family Medicine
DX: M81.0 Age-related osteoporosis without current pathological fracture (principal)
CPT/HCPCS: 96372; J0897

== ENCOUNTER → 2021-01-03 11:27 | Outpatient (CLI) | payer MEDICARE, SELFPAY ==
[2021-01-03 12:16] LABS: Basophils % 0.6 % (0.1-2.0); Eosinophils # 0.2 K/mm3 (0.0-0.4); Eosinophils % 2.7 % (0.1-12.0); Hematocrit 40.7 % (37.0-47.0); Hemoglobin 12.9 g/dL (12.2-16.2); Lymphocytes # 0.8 K/mm3 (0.7-4.5); Lymphocytes % 13.7 % (10-50); Mean Corpuscular HGB Conc 31.6 g/dL (31.8-35.4); Mean Corpuscular Hemoglobin 29.6 pg (27.0-31.2); Mean Corpuscular Volume 93.4 fl (81-99); Mean Platelet Volume 7.1 fl (7.4-10.4); Monocytes # 0.8 K/mm3 (0.1-1.0); Monocytes % 12.5 % (1.7-9.3); Neutrophils # 4.2 K/mm3 (1.8-7.8); Neutrophils % 70.4 % (37.0-80.0); Platelet Count 251 K/mm3 (142-424); Red Blood Count 4.36 M/mm3 (4.20-5.40); Red Cell Distribution Width 13.1 % (11.5-17.5)
[2021-01-03 13:58] LABS: Chloride 101 mmol/L (98-107)
[2021-01-03 13:59] LABS: Potassium 4.5 mmoL/L (3.5-5.1); Sodium 138 mmol/L (136-145)
[2021-01-03 14:01] LABS: Alanine Aminotransferase 27 U/L (12-78); Anion Gap 12.5 mEq/L (5-15); Aspartate Amino Transferase 35 U/L (14-36); Bilirubin,Unconjugated 0.1 mg/dL (0.0-1.1); Blood Urea Nitrogen 19 mg/dl (7-17); Carbon Dioxide 29 mmol/L (22.0-30.0); Estimated Glomerular Filt Rate 96 ml/min (>60); GFR (African American) 116 ML/MIN (>60)
[2021-01-03 14:02] LABS: Albumin Level 4.3 g/dl (3.5-5.0); Alkaline Phosphatase 67 U/L (38-126); Bilirubin,Direct 0.2 mg/dl (0.0-0.4); Bilirubin,Indirect 0.2 mg/dL (0.0-0.9); Bilirubin,Total 0.4 mg/dl (0.2-1.3); Calcium 9.5 mg/dl (8.4-10.2); Chol/HDL Ratio 2.3 (1-3.5); Cholesterol 157 mg/dl (140-200); Glucose 78 mg/dl (74-100); HDL Cholesterol 69 mg/dl (40-60); Total Protein,Serum 6.4 g/dl (6.3-8.2); Triglycerides 113 mg/dl (30-150); VLDL Cholesterol 23 mg/dL (0-40)
[2021-01-03 14:13] LABS: Direct LDL Cholesterol 60.92 mg/dL (100-129)
[2021-01-03 14:15] LABS: Troponin I 0.03 ng/ml (0.00-0.034)
[2021-01-03 14:19] LABS: Free T4 (Free Thyroxine) 1.02 ng/dl (0.78-2.19)
== END ==
PROVIDERS: Visit Provider Nurse Practitioner Family
DX: I20.9 Angina pectoris, unspecified (principal); I35.1 Nonrheumatic aortic (valve) insufficiency; I10 Essential (primary) hypertension
CPT/HCPCS: 36415; 80048; 80061; 80076; 84439; 84443; 84484; 85025

== ENCOUNTER → 2021-01-06 06:13 | Outpatient (CLI) | payer MEDICARE, SELFPAY ==
--- NOTE | 2021-01-06 06:14 | NM_ITS ---
APPROVED REPORT Exam: Nuclear Stress Test Indication: HTN, HYPERLIPIDEMIA, C.P., LATHA Patient Location: Outpatient Stress Tech: Mimi BAILEY Tech:SILVANO Coello RT(R)(N) Ht: 4 ft 7 in Wt: 107 lbs Bra Size: 36D HR: 67 bpm BP: 166/79 mmHg BSA: 1.34 m2 BMI: 24.8 Procedure: Patient received a 0.4 mg of intravenous Lexiscan, resting heart rate 67 bpm, resting blood pressure 166/79 mmHg, with Lexiscan maximum heart rate achived was 93 bpm which is Less than 85 % of the maximum predicted heart rate and blood pressure was 162/76 mmHg. With Lexiscan, patient denied any complaint of chest pain. THESE IMAGES HAD TO BE REPROCESSED BY [facility] BECAUSE OF THE LOOP OF BOWEL LYING SO CLOSE TO THE HEART Electrocardiogram Resting electrocardiogram showed sinus rhythm with frequent premature ventricular complexes, with Lexiscan there is less than 1.[address] segment depression noted from the baseline EKG. The EKG portion of the Lexiscan is nondiagnostic. Cardiac Stress and Resting SPECT Images: Cardiac Stress and Resting SPECT images were obtained using technetium 99m Myoview 31.9 mCi stress and 10.91 mCi at rest. Gated SPECT for analysis of segmental wall motion and calculation of the ejection fraction also done. Cardiac stress and resting SPECT images show uniform myocardial activity without segmental perfusion abnormality, computer derived ejection fraction is 37% with no regional wall motion abnormality, however during the acquisition of the study patient has frequent premature ventricular complexes that may underestimate ejection fraction by the gated SPECT, and echocardiogram will be better modality to evaluate left ventricular systolic function. Conclusion: 1. The EKG portion of the Lexiscan is nondiagnostic. 2. No scintigraphic evidence of reversible ischemia seen, computer derived ejection fraction is 37% with no regional wall motion abnormality, however during the acquisition of the study patient has frequent premature ventricular complexes that may underestimate ejection fraction by gated SPECT. Echocardiogram will be better modality to evaluate left ventricular systolic function. Electronically signed by : Allan Duran, 01/10/2021 19:12:32
--- NOTE | 2021-01-06 06:14 | CA_ITS ---
APPROVED REPORT Exam: Pharmacologic Technologist: Cielo Daly, Ht: 4 ft 11 in Wt: 109 lbs BSA: 1.42 m2 HR: 67 bpm BP: 166/79 mmHg Rhythm: Sinus rhythm with PVC Medical History Medical History: HTN, Hyperlipidemia Medications: Simvastatin,,,,, FOLIC ACID,,,,, Vit D3,,,,, Valsartan,,,,, Famotidine,,,,, Acetaminophen,,,,, Vit e,,,,, Celecoxib,,,,, Multivitamin,,,,, Furosemide,,,,, DiZEPAM,,,,, OmeGA 3S,,,,, Cardiac Risk Factors: HTN, Hyperlipidemia Stress Test Details Test: LEXISCAN HR Resting HR: 70 bpm Max Heart Rate (APMHR): 138.250230 bpm Max HR Achieved: 98 bpm Target HR (85% APMHR): 117.774249 bpm % of APMHR: 71.01 Recovery HR: 84 bpm BP Resting BP: 166/79 mmHg Max BP: 166/79 mmHg Recovery BP: 144.0/64.0 mmHg ECG Resting ECG: Sinus rhythm with PVC Clinical Exercise duration: 04:19 min Highest Stage Achieved: Exercise capacity: 1.0 METs Stress ECG Conclusion During lexiscan myoview pt complained of shortness of breath during peak infusion that was resolved in recovery. No chest pain noted. Occasional PVC. Less than 1.5mm ST response. Images to follow. Test Summary REST 09:19 . . 70 . 166/ 79 . . Stage 1 . . . . . . . Myoview Injected Stage 1 01:00 . . 96 . . . . Stage 2 01:00 . . 93 . 162/ 76 . . Stage 3 01:00 . . 91 . . . . Stage 4 01:00 . . 85 . 143/ 70 . . Stage 4 01:19 . . 85 . 141/ 68 . Stop exercise at 04:19 RECOVERY 01:00 . . 91 . 142/ 69 . . RECOVERY 02:00 . . 85 . 142/ 69 . . RECOVERY 03:00 . . 81 . 144/ 65 . . RECOVERY 04:00 . . 83 . 144/ 65 . . RECOVERY 05:00 . . 80 . 145/ 64 . . RECOVERY 05:04 . . 79 . 145/ 64 . . Electronically signed by : Anjum Holloway, 01/06/2021 10:54:39
== END ==
PROVIDERS: PCP Family Medicine; Visit Provider Nurse Practitioner Family
DX: I10 Essential (primary) hypertension; I20.9 Angina pectoris, unspecified; I27.20 Pulmonary hypertension, unspecified; I34.0 Nonrheumatic mitral (valve) insufficiency; I35.1 Nonrheumatic aortic (valve) insufficiency; R94.31 Abnormal electrocardiogram [ECG] [EKG]; E78.49 Other hyperlipidemia
CPT/HCPCS: 78452; 93017; A9502; J2785

== ENCOUNTER → 2021-01-11 14:45 | Outpatient (CLI) | payer MEDICARE, SELFPAY ==
--- NOTE | 2021-01-11 14:48 | CA_ITS ---
APPROVED REPORT EXAM: Comprehensive 2D, Doppler, and color-flow Echocardiogram Intensive Care Specialist: Salud Manzo CRT Ht: 5 ft 5 in Wt: 109lbs BSA: 1.53 BP: 151/90 mmHg Indications: CP, HTN, Hyperlipidemia, ef check only M-Mode Dimensions RVDd 2.18 cm (0.9-2.6) LVDd 3.52 cm (3.5-5.7) LVDs 2.35 cm (3.5-5.7) IVSd 1.79 cm (0.6-1.1) PWd 1.25 cm (0.6-1.1) EF (Teich) 63.00% FS 33.20% EDV (Teich) 51.60 mL ESV (Teich) 19.10 mL Conclusion 1. Limited echocardiogram was performed to evaluate left ventricular systolic function. 2. Normal left ventricular size, mild concentric left ventricular hypertrophy, visually estimated ejection fraction 55% with no regional wall motion abnormality. 3. No significant pericardial effusion noted. Electronically signed by : Allan Duran, 01/12/2021 16:12:10
== END ==
PROVIDERS: PCP Family Medicine; Visit Provider Nurse Practitioner Family
DX: E78.5 Hyperlipidemia, unspecified (principal); I10 Essential (primary) hypertension; I27.20 Pulmonary hypertension, unspecified; I49.3 Ventricular premature depolarization
CPT/HCPCS: 93308

== ENCOUNTER → 2021-05-16 12:07 | Outpatient (CLI) | payer MEDICARE, SELFPAY | PROVIDERS: PCP Family Medicine; Visit Provider Family Medicine | DX: Z20.822 Contact with and (suspected) exposure to COVID-19 (principal) | CPT/HCPCS: C9803; U0003; U0005 ==

== ENCOUNTER 2021-06-14 10:45 | Outpatient (CLI) | payer MEDICARE, SELFPAY ==
[2021-06-14 11:30] VITALS: BP 132/77; PULSE 69; RESP 18; TEMP 36.5; O2SAT 98
== END 2021-06-14 11:45 | disposition home or self-care (01) ==
LOC: INF 10:46
PROVIDERS: PCP Family Medicine; Visit Provider Family Medicine
DX: M81.0 Age-related osteoporosis without current pathological fracture (principal)
CPT/HCPCS: 96372; J0897

== ENCOUNTER 2021-12-13 10:48 | Outpatient (CLI) | payer MEDICARE, SELFPAY ==
[2021-12-13 11:00] VITALS: BP 128/66; PULSE 77; RESP 16; TEMP 36.4; O2SAT 97
== END 2021-12-13 11:15 | disposition home or self-care (01) ==
LOC: INF 10:49
PROVIDERS: PCP Family Medicine; Visit Provider Family Medicine
DX: M81.0 Age-related osteoporosis without current pathological fracture (principal)
CPT/HCPCS: 96372; J0897

== ENCOUNTER 2021-12-21 14:00 | Outpatient (RCR) | payer MEDICARE, SELFPAY | END 2021-12-21 14:05 | disposition home or self-care (01) | LOC: PT 14:00 | PROVIDERS: PCP Family Medicine; Visit Provider Family Medicine | DX: R26.81 Unsteadiness on feet (principal); M51.36 Other intervertebral disc degeneration, lumbar region; M54.50 Low back pain, unspecified | CPT/HCPCS: 97110; 97112; 97163; 97164; 97530 ==

== ENCOUNTER → 2022-04-18 14:20 | Outpatient (CLI) | payer MEDICARE, SELFPAY | PROVIDERS: PCP Family Medicine; Visit Provider Physician Assistant | DX: E78.2 Mixed hyperlipidemia (principal); I10 Essential (primary) hypertension; I27.20 Pulmonary hypertension, unspecified; I35.1 Nonrheumatic aortic (valve) insufficiency | CPT/HCPCS: 93306 ==

== ENCOUNTER 2022-06-19 13:46 | Outpatient (CLI) | payer MEDICARE, SELFPAY ==
[2022-06-19 14:05] VITALS: BP 138/71; PULSE 73; RESP 18; O2SAT 94
== END 2022-06-19 14:05 | disposition home or self-care (01) ==
LOC: INF 13:47
PROVIDERS: PCP Family Medicine; Visit Provider Family Medicine
DX: M81.0 Age-related osteoporosis without current pathological fracture (principal)
CPT/HCPCS: 96372; J0897

== ENCOUNTER → 2022-07-03 13:08 | Outpatient (CLI) | payer MEDICARE, SELFPAY ==
--- NOTE | 2022-07-03 13:12 | CT_ITS ---
FINAL REPORT TECHNIQUE: After the administration of IV contrast, axial images through the head was performed by computed tomography. This study was performed with techniques to keep radiation doses as low as reasonably achievable (ALARA). Individualized dose reduction techniques using automated exposure control or adjustment of mA and/or kV according to the patient's size were employed. CLINICAL HISTORY: PERSISTENT HEADACHES FINDINGS: There is mild atrophy. Mild chronic microvascular disease is identified. There is no evidence of mass or abnormal enhancement. IMPRESSION: Atrophy and mild chronic microvascular disease. Reviewed, Interpreted and Dictated by Marisa Sinclair MD Transcribed by Sandra Conte Authenticated and [facility]
== END ==
PROVIDERS: PCP Family Medicine; Visit Provider Family Medicine
DX: G44.52 New daily persistent headache (NDPH) (principal)
CPT/HCPCS: 70460; Q9967

== ENCOUNTER → 2022-07-17 14:02 | Outpatient (CLI) | payer MEDICARE, SELFPAY | PROVIDERS: PCP Family Medicine; Visit Provider Family Medicine | DX: R00.2 Palpitations (principal) | CPT/HCPCS: 93225; 93226 ==

== ENCOUNTER → 2022-07-24 10:44 | Outpatient (POV) | payer MEDICARE, SELFPAY ==
[2022-07-24 10:58] VITALS: BP 166/86; PULSE 83; RESP 20; O2SAT 99; BMI 22.3
--- NOTE | 2022-07-24 11:34 | EXP.PAIN.OV ---
HPI Data of Consult Patient: new to practice Consult date: 07/24/22 Requesting Physician: Sarbjit Oconnor CRNA Primary Care Provider: Harshal Roajs MD Consult Narrative Reason for consult: Neck pain, headaches, back pain History of present illness: Ms. Clifton is a 82 year old female who presents today as a new patient. She is a referral from Harshal Rojas's office. Today she rates her pain a 5 out of 10 today. Patient states she has been experiencing worsening neck pain along with headaches since last fall. Patient states her headaches are primarily along the left side of her neck and run up behind her ear and even into around her eyes. Patient does describe this as a aching sensation that is worse with increased activity. Patient does state that she has limited range of motion of her neck and it does affect her ability to even drive. Patient states this pain is occasionally more prominent on rainy days. Patient states that around January of last year she did have a time of increased stress. 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 Patient states that her neck pain and headaches progressed from that point on. Patient denies any specific trauma or injury. Patient does state that she has had back pain for years and did have a laminectomy [place] [address] Mcintosh. Patient states that at that time he did look at her neck as well and states that it was in bad shape. Patient states it has been several years since she has had any imaging of her cervical spine. Patient does state that she uses Tylenol along with tramadol to help with her back and neck pain. Patient states that she has been taking the tramadol 3 times a day and typically gets about 5 hours worth of relief with each dosage. Patient states she has adjusted her sleeping positioning at night due to her pain symptoms. Patient frequently uses a heating pad/night aftab along her left side. Patient states that heat does help her neck but occasionally will make her headaches worse. Patient denies any topical use. Patient states she has gotten Voltaren gel for her hands in the past. Patient states she did have physical therapy last summer but this was due to decreased balance. Patient does use a cane for ambulation and states that she is more stiff in the morning and will use a walker at home. Patient is currently managed with tramadol 50 mg 4 times a day from her primary care doctor. Patient denies any side effects from this medication. Patient does state that she has recently been diagnosed with some cardiac issues but is not on any blood thinners. Her Silvino is [phone]. Its been reviewed and appropriate. CC: Sarbjit Oconnor CRNA [facility] Disclaimer: The information contained in this section may have been updated after the patient was seen, as this information can be updated by other users. Medical History (Updated 07/24/22 @ 11:45 by Suellen Serrano APRN) Hx of cataract Hx of cataract Osteoporosis Surgical History History of back surgery History of bunionectomy History of ERCP History of esophagogastroduodenoscopy (EGD) History of knee replacement procedure of right knee History of surgery on arm History of total left knee replacement (TKR) History of total right knee replacement Hx of arthroscopy of left knee Hx of carpal tunnel repair Hx of cholecystectomy Hx of hysterectomy Hx of oral surgery Hx of shoulder replacement Hx of tubal ligation Hx of varicose vein stripping Family History Other No significant family history Social History (Updated 07/24/22 @ 11:02 by Charmaine Reyes RN) Smoking Status: Never smoker alcohol intake: never substance use type: denies use current occupational status: other Travel in the last 8 weeks: None household members: none housing: house current occ
== END ==
PROVIDERS: PCP Family Medicine; Visit Provider Nurse Anesthetist, Certified Registered
DX: M51.16 Intervertebral disc disorders with radiculopathy, lumbar region (principal); M96.1 Postlaminectomy syndrome, not elsewhere classified; M54.81 Occipital neuralgia; G89.29 Other chronic pain
CPT/HCPCS: 99202; G0463

== ENCOUNTER → 2022-08-02 10:36 | Outpatient (CLI) | payer MEDICARE, SELFPAY ==
--- NOTE | 2022-08-02 10:39 | CT_ITS ---
FINAL REPORT TECHNIQUE: Axial CT images of the cervical spine were obtained without contrast. Sagittal and coronal reformatted images were also obtained. This study was performed with techniques to keep radiation doses as low as reasonably achievable (ALARA). Individualized dose reduction techniques using automated exposure control or adjustment of mA and/or kV according to the patient's size were employed. CLINICAL HISTORY: NECK PAIN COMPARISON: None FINDINGS: There is a large lytic area in the dens. The dens is separate from the rest of the C2 vertebral body and this appears chronic. There are multiple soft tissue calcifications in this region. There is no evidence of fracture or dislocation. There are severe degenerative changes throughout. There is 4 mm of anterolisthesis of C3 on C4. There is kyphosis centered at C5. There is multilevel neural foraminal narrowing. Insert right there is mild central canal stenosis at the C1-2 level. Note is made of subluxation or dislocation of the right humerus at the glenohumeral joint. Limited images of the upper thorax are unremarkable. IMPRESSION: No acute fracture. Severe degenerative change. Abnormal C2 vertebra, uncertain if this is due to C2 mass or possible inflammation/synovitis. Follow-up CT or MRI may be helpful. Mild central canal stenosis. Subluxation or dislocation of the glenohumeral joint. Reviewed, Interpreted and Dictated by Robe Lino III, MD Transcribed by Steph Omalley Authenticated and . [facility]
== END ==
PROVIDERS: PCP Family Medicine; Visit Provider Nurse Practitioner Family
DX: M54.2 Cervicalgia (principal)
CPT/HCPCS: 72125

== ENCOUNTER 2022-08-07 11:36 | Day surgery (SDC) | payer MEDICARE, SELFPAY ==
[2022-08-07 11:42] VITALS: BP 163/84; PULSE 63; RESP 18; TEMP 36.6; O2SAT 96; BMI 23.3
[2022-08-07 11:59] VITALS: BP 117/72; PULSE 65; RESP 18; O2SAT 98
[2022-08-07 12:00] VITALS: BP 117/72; PULSE 65; RESP 18; O2SAT 98
[2022-08-07 12:03] VITALS: BP 112/58; PULSE 59; RESP 18; O2SAT 96
--- NOTE | 2022-08-07 12:27 | P.PCN_ITS ---
Procedure Date: 08/07/22 Time: 12:00 Anesthesiologist:: Sarbjit Oconnor CRNA Complications:: None Pre-procedure Diagnosis:: Bilateral occipital neuralgia Post-procedure Diagnosis:: Same. Indications for Procedure:: Patient is a very pleasant 82-year-old female comes our clinic today for bilat eral occipital nerve block. She complains of occipital pain as well as posterior cervical spine pain at times. She rates pain 7/10. Procedure Details:: Details of the procedure explained to the patient. The patient was taken the procedure room placed in the sitting position. The area over the bilateral occipital nerves was cleaned using chlorhexidine as a cleansing solution. Using a 22-gauge needle the right occipital nerve was accessed with these. After negative aspiration 4 cc of 0.25% Marcaine +3 cc of 1% lidocaine and 20 mg of Depo-Medrol was injected in a fanning fashion. The same procedure was carried out on the left side without difficulty. Patient tolerated procedure without difficulty. No complications. Plan and Disposition:: Patient was discharged without incident.
== END 2022-08-07 12:03 | disposition home or self-care (01) ==
LOC: SC.PAINP 11:36
PROVIDERS: PCP Family Medicine; Visit Provider Nurse Anesthetist, Certified Registered
DX: M54.81 Occipital neuralgia (principal); R51.9 Headache, unspecified; M54.2 Cervicalgia; M54.12 Radiculopathy, cervical region; G89.29 Other chronic pain; M96.1 Postlaminectomy syndrome, not elsewhere classified; M51.36 Other intervertebral disc degeneration, lumbar region
CPT/HCPCS: 64405; J1030

== ENCOUNTER → 2022-08-15 10:58 | Outpatient (CLI) | payer MEDICARE, SELFPAY ==
--- NOTE | 2022-08-15 | CA_ITS ---
FINAL REPORT TECHNIQUE: Graded compression, spectral analysis and ultrasound images of the venous system of the upper extremity were obtained. CLINICAL HISTORY: HTN, hyperlipidemia. Patient denies trauma. States pain in right arm and edema x 1 week. She has a history of right shoulder replacement many years ago. FINDINGS: The jugular vein, subclavian vein, axillary vein, brachial vein, cephalic vein and basilic venous system are fully compressible and demonstrate no evidence of thrombosis. There is a 5.9 x 3.5 x 2.4 cm hypoechoic mass with internal echoes and increased through transmission. No convincing internal blood flow is identified, favor hematoma. IMPRESSION: No evidence of thrombosis of the venous system of the right upper extremity. Hypoechoic mass, favor hematoma. Recommend clinical follow-up. If not resolved, MRI with and without contrast is recommended. Reviewed, Interpreted and Dictated by Shayy Sin MD Transcribed by Sandra Conte Authenticated and [facility]
== END ==
PROVIDERS: PCP Family Medicine; Visit Provider Physician Assistant
DX: M79.601 Pain in right arm (principal); R60.0 Localized edema
CPT/HCPCS: 93971

== ENCOUNTER → 2022-08-30 13:17 | Outpatient (POV) | payer MEDICARE, SELFPAY ==
[2022-08-30 13:36] VITALS: BP 129/59; PULSE 65; RESP 18; O2SAT 98; BMI 23.0
--- NOTE | 2022-08-30 14:06 | EXP.PAIN.SOA ---
[facility] Pain Management SOAP Note Subjective:: Patient is a pleasant 82-year-old female who presents today for follow-up of occipital nerve block bilaterally on 08/07/2022. We are currently treating the patient for degenerative disc disease of cervical and lumbar spine with cervical and lumbar radiculopathy symptoms, neck pain, low back pain, chronic pain, headaches, occipital neuralgia postlaminectomy syndrome of the lumbar spine. Today she states that initially she did feel like that the occipital nerve block bilaterally did provide significant relief of upwards of 50% or more however she states the pain has came back and is causing additional tingling and headache symptoms. She rates her pain today a 1 out of 10. Patient denies any new trauma or injury. Patient denies any change to location or type of pain she aches. She does state that this pain moves from the back of her head to the top of her eye but always on the left side. She does state that the pain is aggravated with certain range of motion such as turning her head to drive. She does state that she feels like her headaches have been a little bit more mild following those injections. 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 Her primary care doctor at that time did want to rule out any possible brain masses, etc. and did have a head CT. She states today that she does wonder whether or not if it has to do with her eyesig she does continue to use Tylenol along with tramadol to help her symptoms. She typically gets about 5 hours worth of relief with the tramadol.? At our last visit we did order a compounding cream for her however she states that she tried a neighbor's cream and did not get significant relief so she did not proceed forward with ordering this. Patient continues to use a heating pad for some improvement. Patient did just go to physical therapy last summer for balance issues. She continues to use a cane for ambulation and uses a walker at home. She is currently managed with tramadol 50 mg 4 times a day from her primary care doctor.? Patient denies any side effects from this medication.? Patient states she was having some heart issues and did have to wear a monitor for 2 days. She also states that she is going to a tamping machine operator soon for a concerning area on her face for possible skin cancer. Her Silvino is [phone].? Its been reviewed and appropriate. Review of Systems: General: No recent weight changes, no fever, no sleep disturbances Respiratory: No cough, no shortness of air, no recurring pulmonary infections Cardiovascular/peripheral vascular: No chest pain, no palpitations, no edema, no shortness of breath Gastrointestinal: No new onset incontinence, normal bowel movements reported Genitourinary: No new onset incontinence Musculoskeletal: Left-sided neck pain, left-sided shoulder pain, headaches Psychiatric: [Normal mood/affect] Neurological: [Denies weakness in extremities], [denies balance issues] Objective:: Physical Exam: General: Alert and oriented x3, no acute distress, pleasant and cooperative Lungs: Respirations even and unlabored, symmetrical chest expansion Eyes: PERRL Musculoskeletal: Flexion and extension of cervical [spine] somewhat guarded secondary to pain, [antalgic gait noted] point tenderness noted at left cervical paraspinous and left trapezius muscles Neurological: Speech clear, no gross sensory deficit FINAL REPORT TECHNIQUE: Axial CT images of the cervical spine were obtained without contrast. Sagittal and coronal reformatted images were also obtained. This study was performed with techniques to keep radiation doses as low as reasonably achievable (ALARA). Individualized dose reduction techniques using automated exposure control or adjustment of mA and/or kV according to the patient's size were employed. CLINICAL HISTORY: NECK PAIN CO
== END ==
PROVIDERS: PCP Family Medicine; Visit Provider Nurse Practitioner Family
DX: M51.16 Intervertebral disc disorders with radiculopathy, lumbar region (principal); M50.10 Cervical disc disorder with radiculopathy, unspecified cervical region; M96.1 Postlaminectomy syndrome, not elsewhere classified; R51.9 Headache, unspecified; G89.29 Other chronic pain
CPT/HCPCS: 99212; G0463

== ENCOUNTER 2022-09-04 14:33 | Day surgery (SDC) | payer MEDICARE, SELFPAY ==
[2022-09-04 14:48] VITALS: BP 160/74; PULSE 63; RESP 18; TEMP 36.4; O2SAT 95; BMI 22.5
[2022-09-04 14:58] VITALS: BP 149/68; PULSE 62; RESP 18; O2SAT 97
[2022-09-04 15:00] VITALS: BP 149/68; PULSE 62; RESP 18; O2SAT 97
[2022-09-04 15:04] VITALS: BP 149/64; PULSE 65; RESP 18; O2SAT 95
--- NOTE | 2022-09-04 15:08 | P.PCN_ITS ---
Procedure Date: 09/04/22 Time: 15:10 Anesthesiologist:: Sarbjit Oconnor CRNA Complications:: None Pre-procedure Diagnosis:: Myofascial pain left trapezius muscle. Post-procedure Diagnosis:: Same. Indications for Procedure:: This patient is a very pleasant 82-year-old female that comes our clinic today for trigger point injection of the left trapezius muscle. Patient has had a plethora of trigger point injections including posterior cervical paraspinous muscles, occipital nerve blocks bilaterally. She complains today of radiating pain into the left trapezius muscle. She has extreme point tenderness over the left trapezius muscle. I suggested the patient we move forward with a cervical MRI to further discern pathology. I suspect she has multilevel facet arthropathy and spondylosis. Patient may need facet blocks/medial branch block cervical spine. Procedure Details:: Details of the procedure were explained to the patient. The patient taken procedure room placed in the sitting position. The area over the left trapezius muscle was cleaned using chlorhexidine as a cleansing solution. Using a 25- gauge needle 3 separate areas over the left trapezius were injected after negative aspiration with 3 cc of 0.25% Marcaine +10 mg of Depo-Medrol. Patient tolerated procedure without difficulty. There are no complications. Plan and Disposition:: Patient was discharged without incident.
== END 2022-09-04 15:04 | disposition home or self-care (01) ==
LOC: SC.PAINP 14:35
PROVIDERS: PCP Family Medicine; Visit Provider Nurse Anesthetist, Certified Registered
DX: M79.18 Myalgia, other site (principal)
CPT/HCPCS: 20552; J1040

== ENCOUNTER → 2022-09-12 13:18 | Outpatient (CLI) | payer MEDICARE, SELFPAY ==
--- NOTE | 2022-09-12 13:21 | MR_ITS ---
FINAL REPORT CLINICAL HISTORY: NECK PAIN, HEADACHES COMPARISON: Head CT dated August 02, 2022 FINDINGS: Multiplanar MR imaging of the cervical spine was performed without contrast. Again noted is fragmentation of the dens. Abnormal soft tissue surrounding the dens at this level is worrisome for synovitis. A primary bone lesion is felt less likely. On the sagittal T2-weighted images, there is diffuse disc degeneration. There is kyphosis centered at C5. There is no evidence of fracture. There is anterolisthesis of C3 on C4, C4 on C5 and C7 on T1. There is retrolisthesis of C5 on C6 and C6 on C7. There is partial fusion of C4 through C7. There is abnormal T2 signal in the upper cervical cord at C2 and C3 which is likely cord edema. The cervicomedullary junction is normal. C1-2: There is mild central canal stenosis at C1 with an AP diameter of the thecal sac of 7 mm. C2-3: An annular disc bulge is present with bilateral uncovertebral osteophytes. There is a central disc protrusion which mildly indents the thecal sac. There is mild central canal stenosis with an AP diameter of the thecal sac of 7 mm. C3-4: A disc osteophyte complex is present with moderate right and severe left neural foraminal narrowing. C4-5: A disc osteophyte complex is present. There is partial fusion at this level. C5-6: A disc osteophyte complex is present. There is partial fusion at this level. C6-7: A disc osteophyte complex is present with moderate bilateral neural foraminal narrowing. C7-T1: An annular disc bulge is present with bilateral uncovertebral osteophytes and moderate right neural foraminal narrowing. T1-2: A disc osteophyte complex is present with moderate bilateral neural foraminal narrowing. T2-3: A disc osteophyte complex is present with mild left neural foraminal narrowing. IMPRESSION: Severe degenerative disc disease and spondylosis with multilevel neural foraminal narrowing which is stable from the prior CT. Fragmentation of the dens with surrounding soft tissue favored to represent synovitis. Central canal stenosis at C1-2 and C2-3 with probable mild cord edema. Reviewed, Interpreted and Dictated by Robe Lino III, MD Transcribed by Denise Grier Authenticated and [facility]
== END ==
PROVIDERS: PCP Family Medicine; Visit Provider Nurse Practitioner Family
DX: M54.2 Cervicalgia (principal); R51.9 Headache, unspecified
CPT/HCPCS: 72141; 76376

== ENCOUNTER → 2022-09-26 11:17 | Outpatient (POV) | payer MEDICARE, SELFPAY ==
[2022-09-26 11:45] VITALS: BP 166/70; PULSE 61; RESP 18; O2SAT 97; BMI 22.3
--- NOTE | 2022-09-26 11:51 | EXP.PAIN.SOA ---
[facility] Pain Management SOAP Note Subjective:: Patient is a pleasant 82-year-old female who presents today for follow-up of cervical MRI as well as trigger point injections of left trapezius muscle on 09/04/2022. We are currently treating the patient for degenerative disc disease of cervical and lumbar spine with cervical and lumbar radiculopathy symptoms, neck pain, low back pain, chronic pain, headaches, occipital neuralgia, postlaminectomy syndrome of lumbar spine. Today she rates her pain a 0 out of 10. Patient states following her trigger point injections she did not have significant improvement. She states she continues to have dull headaches that are worse with increased activity or times of riding in a vehicle. Patient has been prescribed compounding cream that she states she has started using however she has not noticed any additional relief. Patient did have occipital nerve blocks in the past that provided approximately 50% relief however she felt like after it had worn off it caused additional tingling and headache symptoms. She does state that the pain affects her ability to perform activities of daily living such as cooking and cleaning. Patient is currently managed with Tylenol along with tramadol 50 mg 6 times a day from her primary care doctor. Patient denies any side effects from this medication. She states this medication does help decrease her headache symptoms. Her Silvino is [phone]. Its been reviewed and appropriate. Review of Systems: General: No recent weight changes, no fever, no sleep disturbances Respiratory: No cough, no shortness of air, no recurring pulmonary infections Cardiovascular/peripheral vascular: No chest pain, no palpitations, no edema, no shortness of breath Gastrointestinal: No new onset incontinence, normal bowel movements reported Genitourinary: No new onset incontinence Musculoskeletal: Neck pain, headaches Psychiatric: [Normal mood/affect] Neurological: [Denies weakness in extremities], [denies balance issues] Objective:: Physical Exam: General: Alert and oriented x3, no acute distress, pleasant and cooperative Lungs: Respirations even and unlabored, symmetrical chest expansion Eyes: PERRL Musculoskeletal: Flexion and extension of cervical [spine] somewhat guarded secondary to pain, [antalgic gait noted] Neurological: Speech clear, no gross sensory deficit Assessment:: Degenerative disc disease of cervical and lumbar spine with cervical and lumbar radiculopathy symptoms, low back pain, neck pain, chronic pain, headaches, occipital neuralgia, postlaminectomy syndrome lumbar spine Plan:: Patient continues to experience significant pain in her upper back/neck with increased headaches and radiating symptoms. Patient did have limited range of motion of her cervical spine during today's visit. I have discussed with the patient that she may benefit from cervical epidural steroid injection. Risk and benefits were discussed with the patient and she would like to proceed forward with this plan of care. Patient is not on any blood thinners. Patient's imaging did show severe degenerative disc disease with spondylosis and multilevel neuroforaminal narrowing. She also had central canal stenosis at C1-2 and C2-3 with probable mild cord edema. Patient also had fragmentation of the dens with surrounding soft tissue favored to represent synovitis. Patient will be scheduled for a JENNIFER C6-C7. Patient has been instructed to contact the clinic with any concerns before the next appointment. Dr. Contreras has reviewed this note and agrees with this plan of care. This note was dictated using voice recognition software and make contain errors or omissions. [facility] Disclaimer: The information contained in this section may have been updated after the patient was seen, as this information can be updated by other users. Medical History Hx of cataract right eye Hx of cataract left eye
== END ==
PROVIDERS: PCP Family Medicine; Visit Provider Nurse Practitioner Family
DX: M50.123 Cervical disc disorder at C6-C7 level with radiculopathy (principal); R51.9 Headache, unspecified; M54.81 Occipital neuralgia; G89.29 Other chronic pain; M96.1 Postlaminectomy syndrome, not elsewhere classified
CPT/HCPCS: 99212; G0463

== ENCOUNTER 2022-10-02 14:25 | Day surgery (SDC) | payer MEDICARE, SELFPAY ==
[2022-10-02 14:44] VITALS: BP 169/73; PULSE 65; RESP 18; TEMP 36.7; O2SAT 98; BMI 24.6
[2022-10-02 15:08] VITALS: BP 165/69; PULSE 69; RESP 18; O2SAT 98
--- NOTE | 2022-10-02 15:10 | P.PCN_ITS ---
Procedure Date: 10/02/22 Time: 15:00 Anesthesiologist:: Sarbjit Oconnor CRNA Complications:: None Pre-procedure Diagnosis:: Degenerative disc disease cervical spine multilevels. Cervical radiculopathy. Cervical spondylosis. Multilevel cervical facet arthropathy. Post-procedure Diagnosis:: Same. Indications for Procedure:: Patient is a very pleasant 82-year-old female comes our clinic today for cervical epidural steroid injection C6-7 level. Patient has posterior cervical neck pain she describes as constant, dull, aching. Also, patient describes bilateral arm radicular symptoms at times. Procedure Details:: Procedure:Cervical epidural steroid injection Informed consent was obtained and the risks and benefits of the procedure were explained to the patient. The patient was taken to the procedure room and noninvasive monitors placed, including noninvasive blood pressure cuff and pulse oximeter. The neck was prepped using Chloraprep as a cleansing solution. The C6- C7 interspace was viewed using fluroscopy. The skin and subcutaneous tissues were anesthetized using lidocaine 1.5% and a 25-gauge needle. After this an 18- gauge Touhy epidural needle was placed into the C6-C7 interspace under fluroscopy guidance and advanced using loss of resistance to air until the epidural space was encountered. After confirmation of needle placement in the epidural space using contrast dye, a solution containing normal saline, 2 mL and Depo-Medrol 80 mg was incrementally injected into the cervical epidural space.~ The patient tolerated the procedure well with no complications. The patient was observed in the Pain Clinic and then discharged home neurologically intact. Plan and Disposition:: Patient was discharged without incident.
== END 2022-10-02 15:15 | disposition home or self-care (01) ==
PROVIDERS: PCP Family Medicine; Visit Provider Nurse Anesthetist, Certified Registered
DX: M50.123 Cervical disc disorder at C6-C7 level with radiculopathy (principal); M47.22 Other spondylosis with radiculopathy, cervical region
CPT/HCPCS: 62321; J1030; Q9966

== ENCOUNTER → 2022-10-19 11:17 | Outpatient (POV) | payer MEDICARE, SELFPAY ==
--- NOTE | 2022-10-19 11:51 | EXP.PAIN.SOA ---
[facility] Pain Management SOAP Note Subjective:: This patient is a very pleasant 82-year-old female comes our clinic today for follow-up visit after receiving cervical epidural steroid injection C6-7 level. She reports 50 to 75% improvement terms of her overall pain and cervical spine as well as chronic headache symptoms. Patient still complaining of some difficulty with shoulder and arm radiculopathy. Patient has difficulty with flexion, extension left and right rotation of the cervical spine due to multilevel cervical spondylosis. Patient requesting a second cervical epidural steroid injection. I think this would be reasonable given the fact she had some moderate to significant improvement with her initial cervical epidural steroid injection. Today she rates her pain 2/10. Patient taking a regime orally of tramadol Tylenol and ibuprofen at times. Her tramadol comes from her PCP. Her Silvino has been reviewed today and is appropriate #[phone]. Objective:: Patient is awake alert [place] x3. In no acute distress. Flexion-extension lumbar and cervical spine difficult due to pain. Deep tendon reflexes upper lower extremities normal. Motor strength upper and lower extremities normal. There is no gross sensory deficit. Gait is normal. Assessment:: Degenerative disc disease cervical spine. Cervical radiculopathy. Cervical spondylosis. Multilevel cervical disc bulge. Multilevel lumbar degenerative disc. Lumbar radiculopathy. Plan:: Discussed in detail with the patient regarding a second cervical epidural steroid injection. Discussed risk versus benefits with her. She wishes to proceed. She will continue her tramadol ibuprofen and Tylenol regime orally. [facility] Disclaimer: The information contained in this section may have been updated after the patient was seen, as this information can be updated by other users. Medical History Hx of cataract right eye Hx of cataract left eye Osteoporosis Palpitations Surgical History History of back surgery fusion l3-5 and illiac History of bunionectomy History of ERCP History of esophagogastroduodenoscopy (EGD) History of knee replacement procedure of right knee partial History of surgery on arm right arm repair History of total left knee replacement (TKR) reversal History of total right knee replacement Hx of arthroscopy of left knee Hx of carpal tunnel repair right and left hand Hx of cholecystectomy Hx of hysterectomy Hx of oral surgery extraction Hx of shoulder replacement Hx of tubal ligation Hx of varicose vein stripping Family History Other No significant family history Social History Smoking Status: Never smoker alcohol intake: never substance use type: denies use current occupational status: retired Travel in the last 8 weeks: None household members: none housing: house current occupational exposures/hazards: Yes
[2022-10-19 12:17] VITALS: BP 135/70; PULSE 59; RESP 18; O2SAT 97; BMI 23.2
== END ==
PROVIDERS: PCP Family Medicine; Visit Provider Nurse Anesthetist, Certified Registered
DX: M50.123 Cervical disc disorder at C6-C7 level with radiculopathy (principal); M47.22 Other spondylosis with radiculopathy, cervical region; M51.16 Intervertebral disc disorders with radiculopathy, lumbar region
CPT/HCPCS: 99212; G0463

== ENCOUNTER 2022-10-23 13:55 | Day surgery (SDC) | payer MEDICARE, SELFPAY ==
[2022-10-23 14:03] VITALS: BP 150/71; PULSE 68; RESP 18; TEMP 36.6; O2SAT 95; BMI 22.7
--- NOTE | 2022-10-23 14:24 | P.PCN_ITS ---
Procedure Date: 10/23/22 Time: 14:20 Anesthesiologist:: Sarbjit Oconnor CRNA Complications:: None Pre-procedure Diagnosis:: Degenerative disc disease cervical spine multilevels. Cervical radiculopathy. Cervical spondylosis. Multilevel cervical facet arthropathy. Post-procedure Diagnosis:: Same. Indications for Procedure:: Very pleasant 82-year-old female who comes our clinic today for a second cervical epidural steroid injection at the C6-7 level. Patient had mild to moderate improvement terms of her overall status posterior cervical pain as well as cervical radicular symptoms with her first injection. Today her main complaint is posterior cervical neck pain. Difficulty with flexion, extension, left and right rotation. Radicular symptoms into the bilateral shoulders and arms. Procedure Details:: Procedure:Cervical epidural steroid injection Informed consent was obtained and the risks and benefits of the procedure were explained to the patient. The patient was taken to the procedure room and noninvasive monitors placed, including noninvasive blood pressure cuff and pulse oximeter. The neck was prepped using Chloraprep as a cleansing solution. The C6- C7 interspace was viewed using fluroscopy. The skin and subcutaneous tissues were anesthetized using lidocaine 1.5% and a 25-gauge needle. After this an 18- gauge Touhy epidural needle was placed into the C6-C7 interspace under fluroscopy guidance and advanced using loss of resistance to air until the epidural space was encountered. After confirmation of needle placement in the epidural space using contrast dye, a solution containing normal saline, 2 mL and Depo-Medrol 80 mg was incrementally injected into the cervical epidural space.~ The patient tolerated the procedure well with no complications. The patient was observed in the Pain Clinic and then discharged home neurologically intact. Plan and Disposition:: Patient was discharged without incident.
[2022-10-23 14:25] VITALS: BP 145/59; PULSE 71; RESP 18; O2SAT 95
== END 2022-10-23 14:25 | disposition home or self-care (01) ==
PROVIDERS: PCP Family Medicine; Visit Provider Nurse Anesthetist, Certified Registered
DX: M50.123 Cervical disc disorder at C6-C7 level with radiculopathy (principal); M47.22 Other spondylosis with radiculopathy, cervical region
CPT/HCPCS: 62321; J1040; Q9966

== ENCOUNTER → 2022-11-15 14:39 | Outpatient (POV) | payer MEDICARE, SELFPAY ==
--- NOTE | 2022-11-15 14:49 | EXP.PAIN.SOA ---
[facility] Pain Management SOAP Note Subjective:: Patient is a pleasant 82-year-old female who presents today for follow-up of cervical epidural steroid injection of C6-C7 on 10/23/2022.? We are currently treating the patient for degenerative disc disease of cervical and lumbar spine with cervical and lumbar radiculopathy symptoms, neck pain, low back pain, chronic pain, headaches, occipital neuralgia, postlaminectomy syndrome of lumbar spine.? Today she rates her pain a 7 out of 10.? She states her headaches do seem better at home however she still continues to have them while driving or riding in a vehicle. Patient does state that her neck pain does seem better on some days however other days not so much. She does state her pain today is more related to her right knee. She does describe this as a constant sharp sensation that is worse with increased activity. It does cause difficulty walking. She does use a cane for additional help with ambulation. Patient does state the pain is interfering with her ability to perform activities of daily living such as cooking and cleaning. She states that this knee has had 2 different surgeries in the past including a total knee replacement and then a partial replacement. She states this pain has been going on for years and progressively worsened over time. She is currently managed with Tylenol along with tramadol 50 mg 6 times a day from her primary care doctor.? Patient denies any side effects from this medication.? She states that she has not used her compounding cream on her right knee or her neck at this time. She also states that she recently went back to her gabapentin that she had been prescribed in the past by Dr. Rojas and states that it does make her somewhat sleepy and is waiting to see if it provides additional improvement. Her Silvino is [phone].? Its been reviewed and appropriate. Review of Systems: General: No recent weight changes, no fever, no sleep disturbances Respiratory: No cough, no shortness of air, no recurring pulmonary infections Cardiovascular/peripheral vascular: No chest pain, no palpitations,? no edema, no shortness of breath Gastrointestinal: No new onset incontinence, normal bowel movements reported Genitourinary: No new onset incontinence Musculoskeletal: Right knee pain Psychiatric: [Normal mood/affect] Neurological: [Denies weakness in extremities], [denies balance issues] Objective:: Physical Exam: General: Alert and oriented x3, no acute distress, pleasant and cooperative Lungs: Respirations even and unlabored, symmetrical chest expansion Eyes: PERRL Musculoskeletal: Flexion and extension of right knee somewhat guarded secondary to pain, [antalgic gait noted] Neurological: Speech clear, no gross sensory deficit Assessment:: Degenerative disc disease of cervical and lumbar spine with cervical and lumbar radiculopathy symptoms, neck pain, low back pain, chronic pain headaches occipital neuralgia postlaminectomy of lumbar spine right knee pain Plan:: Patient is experiencing significant pain in her right knee with limited range of motion. I have discussed with the patient that she may benefit from a right genicular nerve block. Risk and benefits were discussed with the patient and she would like to proceed forward with this plan of care. Patient is not on any blood thinners. I have also discussed with the patient that if she continues to have headache she may benefit from other options like repeat occipital nerve block or Botox injections for migraines. I have recommended that she may try peppermint oil on her temples in the meantime. I have also recommended that she try her compounding cream on both her right knee and her neck pain. Patient will be scheduled for a right genicular nerve block. Patient has been instructed to contact the clinic with any concerns before the next appointment. Dr. Contreras has reviewed this note and agrees with this plan of care. This note was dictated using voice
[2022-11-15 16:02] VITALS: BP 141/66; PULSE 66; RESP 18; O2SAT 97; BMI 24.4
== END ==
PROVIDERS: Visit Provider Nurse Practitioner Family
DX: M50.10 Cervical disc disorder with radiculopathy, unspecified cervical region (principal); M96.1 Postlaminectomy syndrome, not elsewhere classified; M25.561 Pain in right knee; G89.29 Other chronic pain; R51.9 Headache, unspecified; M54.81 Occipital neuralgia
CPT/HCPCS: 99212; G0463

== ENCOUNTER → 2022-12-04 13:21 | Day surgery (SDC) | payer MEDICARE, SELFPAY ==
--- NOTE | 2022-12-04 13:35 | EXP.PAIN.SOA ---
[facility] Pain Management SOAP Note Subjective:: The patient is a pleasant 82-year-old female comes our clinic today for right genicular nerve block. However, upon arrival she complains of sudden onset of dizziness 2 hours ago. Patient feels lightheaded. Also, blood pressure 190/86. Patient does take antihypertensive medicine. Patient also states she feels very nervous. Patient presents in a wheelchair today. . Objective:: She is awake alert [place] x3. No acute distress. Flexion-extension cervical lumbar spine normal. Deep tendon reflexes upper and lower extremities normal. Motor strength upper and lower extremities normal. There is no gross sensory deficit. Patient presents in wheelchair today. Assessment:: Chronic right knee pain. Sudden onset of dizziness today. Plan:: We contacted Dr. Rojas's office. We will send the patient over by wheelchair with one of our nurses to be examined by Dr. Rojas. We will reschedule the right genicular nerve block at a later date. [facility] Disclaimer: The information contained in this section may have been updated after the patient was seen, as this information can be updated by other users. Medical History Hx of cataract right eye Hx of cataract left eye Impacted cerumen, left ear Osteoporosis Palpitations Surgical History History of back surgery fusion l3-5 and illiac History of bunionectomy History of ERCP History of esophagogastroduodenoscopy (EGD) History of knee replacement procedure of right knee partial History of surgery on arm right arm repair History of total left knee replacement (TKR) reversal History of total right knee replacement Hx of arthroscopy of left knee Hx of carpal tunnel repair right and left hand Hx of cholecystectomy Hx of hysterectomy Hx of oral surgery extraction Hx of shoulder replacement Hx of tubal ligation Hx of varicose vein stripping Family History Other No significant family history Social History Smoking Status: Never smoker alcohol intake: never substance use type: denies use current occupational status: retired Travel in the last 8 weeks: None household members: none housing: house current occupational exposures/hazards: Yes
== END ==
PROVIDERS: PCP Family Medicine; Visit Provider Nurse Anesthetist, Certified Registered
DX: M25.561 Pain in right knee (principal); G89.29 Other chronic pain; R42 Dizziness and giddiness
CPT/HCPCS: 99212; G0463

== ENCOUNTER → 2022-12-07 13:15 | Outpatient (CLI) | payer MEDICARE, SELFPAY ==
--- NOTE | 2022-12-07 13:15 | CT_ITS ---
FINAL REPORT CLINICAL HISTORY: dystonia, cervical spondylosis, myelopathy COMPARISON: MRI of 09/12/2022 FINDINGS: There is a chronic appearing fracture of the odontoid process without significant displacement. There is significant anterolisthesis of the C3/4 and C4/5 levels. Partial ankylosis of the C4,C5 and C6 vertebral bodies is present. There is 4 mm anterolisthesis of C7 on T1 as well as reversal of the normal lordosis. There is a chronic appearing perched facet at the C4-5 level on the left. Multilevel neural foraminal stenosis is noted most pronounced at the left C3-4 and C4-5 levels and bilaterally at the C6-7 level. No definite bony canal stenosis is identified. IMPRESSION: Chronic appearing fracture of the odontoid process of C2 Severe chronic subluxation at multiple levels with reversal of the normal cervical lordosis. Overall there is no significant change since the MRI of August 2022. Reviewed, Interpreted and Dictated by Marisa Sinclair MD Transcribed by Felicia Bejarano Authenticated and [facility]
--- NOTE | 2022-12-07 13:27 | XR_ITS ---
FINAL REPORT CLINICAL HISTORY: Cervical dystonia, abnormal finding on C2 FINDINGS: Multiple attempts were performed to obtain cervical spine flexion and extension views. There is a known fracture of the odontoid process seen on CT of 12/07/2022 which is not well visualized on this examination. At the C2-3 level there is 4 mm of anterolisthesis seen with flexion, which reduces in the neutral position. There is stable 3 mm subluxation of C3 on C4 which does not change with flexion or extension. There is 3 mm subluxation of C7 on T1, also stable with flexion and extension. IMPRESSION: Known fracture of the odontoid process seen on CT of 12/07/2022 which is not well visualized on this exam. Therefore unable to assess for stability with this examination. C2-3 4 mm anterolisthesis seen in flexion, reduces in neutral. Other levels are stable with flexion and extension. Reviewed, Interpreted and Dictated by Marisa Sinclair MD Transcribed by Felicia Bejarano Authenticated and [facility]
== END ==
PROVIDERS: PCP Family Medicine; Visit Provider Specialist
DX: G24.3 Spasmodic torticollis (principal); G89.29 Other chronic pain; M47.812 Spondylosis without myelopathy or radiculopathy, cervical region; R51.9 Headache, unspecified
CPT/HCPCS: 72052; 72125

== ENCOUNTER 2022-12-07 14:51 | Outpatient (RCR) | payer MEDICARE, SELFPAY ==
--- NOTE | 2022-12-07 16:23 | HMH.PTOPEV ---
PT Outpatient Evaluation Rehab PT Outpatient Evaluation Start: 12/07/22 16:00 Freq: Status: Active Protocol: Document 12/07/22 16:01 ALKA (Rec: 12/07/22 16:21 ALKA [id number]) E-signed By Zhen Campoverde, PT Outpatient Therapy Subjective History Subjective History Patient is an 82 year old female presenting to outpatient PT with reports of chronic cervical spine pain starting approx 05/2022. No specific injury to report. Most recent imaging indicates chronic odontoid process fracture of C2 and multi-level subluxations. Comorbidities include hx of R reverse TSA, B TKA, LS fusion, HTN and HL. Chief Complaint Pain,Stiff Symptom Type Ache,Sharp Symptoms Relieved By Heat,OTC Meds,Prescription Meds Symptoms Aggravated By Standing,Physical Activity, Walking,Lifting Prior Functional Limitations None Current Functional Limitations Reaching,Lifting,Housework Symptom Description Intermittent Level of pain today (0-10) 4 Pain scale - at its best (0-10) 0 Pain scale - at its worst (0-10) 8 Cervical Eval Palpation Cervical Muscles R Cervical Paraspinal,L Cervical Paraspinal,R Suboccipital,L Suboccipital,R Upper Trapezius,L Upper Trapezius Posture Head/C-Spine Posture Sitting Position C-Spine Flattened Head/C-Spine Posture Standing Position C-Spine Flattened Flexibility Deficits Upper Trapezius Muscle Length (R) Moderate Tightness,(L) Moderate Tightness Levaetor Scapulae Muscle Length (R) Moderate Tightness,(L) Moderate Tightness Scalene Group Muscle Length (R) Moderate Tightness,(L) Moderate Tightness Pectoralis Minor Muscle Length (R) Moderate Tightness,(L) Moderate Tightness Passive Joint Mobility Cervical PIVM Dec: R OA L OA R AA L AA R C2/3 L C2/3 R C3/4 L C3/4 R C4/5 L C4/5 R C5/6
== END 2022-12-07 14:55 | disposition home or self-care (01) ==
LOC: PT 14:51
PROVIDERS: Visit Provider Specialist
DX: G24.3 Spasmodic torticollis (principal); M47.812 Spondylosis without myelopathy or radiculopathy, cervical region; R51.9 Headache, unspecified; G89.29 Other chronic pain
CPT/HCPCS: 97163

== ENCOUNTER 2022-12-09 01:03 | Observation (INO) | payer MEDICARE, SELFPAY ==
[2022-12-09] VITALS (11 sets, daily range): BP systolic 134–175; BP diastolic 62–88; PULSE 66–85; RESP 16–20; TEMP 36.6–37; O2SAT 94–98; BMI 23.8; BMI 21.1
--- NOTE | 2022-12-09 01:46 | HMH.EDGENADL ---
Discharge Plan Disposition Patient Disposition: Admitted Condition: Good Prescriptions Prescriptions: No Action gabapentin 100 mg capsule 100 mg PO BID Label Comments: TAKE ONE CAPSULE BY MOUTH TWICE DAILY tizanidine 2 mg tablet 2 mg PO HS PRN (Reason: muscle spasticity) Qty: 60 5RF Rx Instructions: 2 mg, (1 tablet) an hour before bedtime for a week may increase up to 4 mg p.o. nightly, (2 tablets) folic acid 0.8 mg capsule 400 mcg PO DAILY cholecalciferol (vitamin D3) 2,000 unit capsule 1,000 iunits PO BID vitamins A,C,T-bklr-gzjljr [ICaps AREDS] 14,320-226-200 oysp-sx-moaf capsule 1 cap PO BID simvastatin 20 mg tablet 20 mg PO HS diazepam 5 mg tablet 5 mg PO HSP PRN (Reason: Sleep) tramadol 50 mg tablet 50 mg PO Q6H PRN (Reason: pain) Label Comments: TAKE 1 TO 2 TABLETS BY MOUTH EVERY 6 HOURS NEEDED valsartan 320 mg tablet 320 mg PO DAILY Label Comments: TAKE 1 TABLET BY MOUTH EVERY DAY bisoprolol fumarate 5 mg tablet 2.5 mg PO QDAY Qty: 90 3RF furosemide 20 mg tablet 20 mg PO DAILY Qty: 90 2RF wtlwm-6s-qlq-epa-fish oil 1 EACH capsule,delayed release(DR/EC) 1 each PO BID osvkmxad-mxl-vmdt-FA-lutein 1 EACH tablet 1 each PO DAILY Referrals Follow up/Referrals: Harshal Rojas MD [Primary Care Provider] - See instructions Clinical Impressions Clinical Impression: Dizziness, Urinary retention Discharge ED Provider: Nino Romeo General Adult HPI General Chief complaint: Dizziness Stated complaint: Dizzy Time Seen by Provider: 12/09/22 01:06 Mode of Arrival: Ambulatory Source of Information: Patient Limitations: No Limitations Description of Symptoms (Recalled from ER Triage Doc. by RN): pt reports that she has had 3 bouts of dizzy spells today making it difficult to get up or even walk the pt reports that she fell asleep in the recliner and when she woke up she was unable to get out of the chair. the pt states she has recantly started seeing jazmine from neurology for headaches and getting injections and epidurals for pain. the pt states that she was diagnosed with vertigo this week but not put on any medication History of Present Illness HPI narrative: 82yo F evaluated in the ER for dizziness. Reports she was seen and diagnosed with vertigo on Saturday (6 days ago) but not started on any medication. Denies any headache or visual change. Reports she fell asleep in her chair and when she woke up to get out of the chair was very dizzy. Reports a few episodes earlier today that were not as severe. Denies any focal deficit. Denies any slurred speech. Reports she is feeling less dizzy at this time. Related Data Home Medications Medication Instructions Recorded Confirmed cholecalciferol (vitamin D3) 50 1,000 iunits PO BID Supplement 12/20/17 12/09/22 mcg (2,000 unit) capsule folic acid 0.8 mg capsule 400 mcg PO DAILY Supplement 12/20/17 12/09/22 simvastatin 20 mg tablet 20 mg PO HS High cholesterol 12/20/17 12/09/22 vitamins A,C,M-iyzb-nwdbzq 4,296 1 cap PO BID Supplement 12/20/17 12/09/22 mcg-226 mg-90 mg capsule (ICaps AREDS) diazepam 5 mg tablet 5 mg PO HSP PRN Sleep 12/23/17 12/09/22 omega3 720 hf-txj-myz-other 1 each PO BID Supplement 06/11/18 12/09/22 qs9o-uxxb oil 1,200 mg capsule,delay rel multivit with 1 each PO DAILY Diet supplement 12/12/18 12/09/22 sxnxijsj-zhgc-RY-lutein 8 mg iron-400 mcg-300 mcg tablet tramadol 50 mg tablet 50 mg PO Q6H PRN pain 04/12/21 12/09/22 valsartan 320 mg tablet 320 mg PO DAILY BLOOD PRESSURE 10/16/22 12/09/22 gabapentin 100 mg capsule 100 mg PO BID . 11/28/22 12/09/22 Previous Rx's Medication Instructions Recorded furosemide 20 mg tablet 20 mg PO DAILY Fluid #90 tabs 08/30/22 bisoprolol fumarate 5 mg tablet 2.5 mg PO QDAY bp #90 tabs 10/16/22 tizanidine 2 mg tablet 2 mg PO HS PRN muscle spasticity 11/29/22 #60 tabs Allergies Danial
--- NOTE | 2022-12-09 02:44 | PC.NURSE ---
Pt assisted to bed side toilet and back to bed
--- NOTE | 2022-12-09 02:56 | CT_ITS ---
PROCEDURE INFORMATION: Exam: CT Head Without Contrast Exam date and time: 12/09/2022 3:08 AM Age: 82 years old Clinical indication: Dizziness TECHNIQUE: Imaging protocol: Computed tomography of the head without contrast. Radiation optimization: All CT scans at this facility use at least one of these dose optimization techniques: automated exposure control; mA and/or kV adjustment per patient size (includes targeted exams where dose is matched to clinical indication); or iterative reconstruction. REPORTING DATA: Count of CT and Cardiac NM exams in prior 12 months: This patient has received 3 known CTs and 0 known cardiac nuclear medicine studies in the 12 months prior to the current study. COMPARISON: CT HEAD/BRAIN W CON 07/03/2022 2:03 PM FINDINGS: Brain: Low-attenuation in the periventricular white matter, while nonspecific, most consistent with microvascular ischemic changes. Cerebral ventricles: No ventriculomegaly. Paranasal sinuses: No fluid levels. Mastoid air cells: Visualized mastoid air cells are well aerated. Bones/joints: No acute fracture. Soft tissues: The visualized soft tissue is grossly unremarkable. IMPRESSION: No evidence of acute intracranial hemorrhage.
--- NOTE | 2022-12-09 03:05 | PC.NURSE ---
patient gone to RAD at this time.
[2022-12-09 03:06] LABS: Alanine Aminotransferase 31 U/L (12-78); Albumin Level 4.3 g/dl (3.5-5.0); Albumin/Globulin Ratio 1.7 (1.1-1.8); Alkaline Phosphatase 93 U/L (38-126); Anion Gap 14.6 mEq/L (5-15); Aspartate Amino Transferase 47 U/L (14-36); Basophils % 0.2 % (0.1-2.0); Bilirubin,Total 0.4 mg/dl (0.2-1.3); Blood Urea Nitrogen 13 mg/dl (7-17); Calcium 9.1 mg/dl (8.4-10.2); Carbon Dioxide 29 mmol/L (22.0-30.0); Chloride 95 mmol/L (98-107); Creatinine Clearance Estimated 33 mL/min (50-200); Eosinophils % 0.3 % (0.1-12.0); Estimated Glomerular Filt Rate 152 ml/min (>60); GFR (African American) 184 ML/MIN (>60); Globulin 2.6 g/dL (1.3-3.2); Glucose 142 mg/dl (74-100); Hemoglobin 12.6 g/dL (12.2-16.2); Lymphocytes # 0.8 K/mm3 (0.7-4.5); Lymphocytes % 10.7 % (10-50); Mean Corpuscular HGB Conc 30.7 g/dL (31.8-35.4); Mean Corpuscular Hemoglobin 29.7 pg (27.0-31.2); Mean Platelet Volume 8.3 fl (7.4-10.4); Monocytes # 0.5 K/mm3 (0.1-1.0); Monocytes % 6.6 % (1.7-9.3); Neutrophils # 6.3 K/mm3 (1.8-7.8); Neutrophils % 82.2 % (37.0-80.0); Platelet Count 344 K/mm3 (142-424); Potassium 3.6 mmoL/L (3.5-5.1); Red Blood Count 4.23 M/mm3 (4.20-5.40); Red Cell Distribution Width 13.1 % (11.5-17.5); Sodium 135 mmol/L (136-145); Total Protein,Serum 6.9 g/dl (6.3-8.2); White Blood Count 7.7 K/mm3 (4.8-10.8)
--- NOTE | 2022-12-09 03:10 | PC.NURSE ---
Pt returned from RAD
[2022-12-09 03:18] LABS: Appearance,Urine CLEAR (Clear); Bilirubin,Urine Negative (Negative); Blood, Urine Negative (Negative); Color,Urine YELLOW (Yellow); Glucose,Urine (UA) Negative (Negative); Ketones,Urine TRACE (Negative); Leukocyte Esterase,Urine Negative (Negative); Nitrate,Urine Negative (Negative); Protein,Urine Negative (Negative); Urobilinogen,Urine 0.2 EU/dl (0.2)
[2022-12-09 03:19] LABS: Microscopic, Urine URINE MICROSCOPIC (MICROSCOPIC)
[2022-12-09 03:21] LABS: Bacteria,Urine Trace /lpf; Squamous Epithelial Cell,Urine Occasional #/hpf (0-5); WBC,Urine Occasional #/hpf (0-3)
--- NOTE | 2022-12-09 04:34 | PC.NURSE ---
Registration notified of admission. Pt assigned o room 213. Rommel to [place] for vertigo and urinary retention. OBS
--- NOTE | 2022-12-09 06:15 | PC.NURSE ---
Pt admitted to floor for vertigo and urinary retention. Patient treated and most symptoms of vertigo resolved in ER. Machuca catheter in place upon arrival to floor. No complaints at this time.
[2022-12-09 07:38] LABS: Coronavirus 19, PCR Not Detected (NotDetected); Influenza A, PCR Not Detected (NotDetected); Influenza B, PCR Not Detected (NotDetected)
--- NOTE | 2022-12-09 08:24 | EXP.HP ---
History of Present Illness *Admission Date: 12/09/22 *Reason for visit:: Dizziness *History of present illness: 82 year old female with a fairly extensive medical history presented to [facility] ER last night complaining of sever dizziness. She states she has been having several neurologic issues lately consisting of dizziness and some fairly persistent headaches. She states she saw Dr. Subramanian this past week and was diagnosed with Vertigo and chronic headaches and was referred to [facility] physical therapy department for treatment. She has also been seen at [facility] pain management clinic and has been receiving epidural injections. Patient was given Meclizine in the ER which helped some but she had return of symptoms when she stood up out of bed. She also had issues urinating. She had a large post void residual so a Machuca catheter was placed and 1,200 mL of urine was present. Patient lives alone at home. [facility] Disclaimer: The information contained in this section may have been updated after the patient was seen, as this information can be updated by other users. Medical History (Updated 12/09/22 @ 08:40 by Harshal Rojas MD) Anxiety Aortic insufficiency Aortic regurgitation Basal cell carcinoma Cervical radiculopathy Cervical spondylosis Cholecystitis Chronic headache Degenerative disc disease, lumbar Diastolic dysfunction Diverticulosis of colon Essential hypertension HLD (hyperlipidemia) Hx of cataract Hx of cataract Impacted cerumen, left ear Low back pain Lumbar spondylolysis Mitral regurgitation Neck pain Occipital neuralgia Osteoporosis Palpitations Postlaminectomy syndrome of lumbar region Vitamin D deficiency Surgical History (Updated 12/09/22 @ 08:36 by Harshal Rojas MD) History of back surgery History of bunionectomy History of ERCP History of esophagogastroduodenoscopy (EGD) History of knee replacement procedure of right knee History of surgery on arm History of total left knee replacement (TKR) History of total right knee replacement Hx of arthroscopy of left knee Hx of carpal tunnel repair Hx of cholecystectomy Hx of hysterectomy Hx of oral surgery Hx of shoulder replacement Hx of tubal ligation Hx of varicose vein stripping Status post laparoscopic cholecystectomy Family History Other No significant family history Social History (Updated 12/09/22 @ 05:18 by Cherelle Gill RN) Smoking Status: Never smoker alcohol intake: never substance use type: denies use current occupational status: retired Travel in the last 8 weeks: None household members: none housing: house lives independently: Yes marital status: single current occupational exposures/hazards: Yes Review of Systems Constitutional Constitutional: Denies chills and Denies fever(s) Eyes Eyes: Denies blurry vision ENT Ears, Nose, Mouth, and Throat: Denies change in voice *Cardiovascular Cardiovascular: Denies chest pain and Denies dyspnea *Respiratory Respiratory: Denies dyspnea *Gastrointestinal Gastrointestinal: Reports belching and Denies diarrhea *Genitourinary Genitourinary: Reports difficulty voiding *Musculoskeletal Musculoskeletal: Reports back pain Integumentary/Breasts Skin/Breast: Denies rash *Neurologic Neurologic: Reports as per HPI and Denies memory loss Psychiatric Psychiatric: Denies memory loss Meds Home Medications and Allergies Home Medications Medication Instructions Recorded Confirmed Type cholecalciferol (vitamin D3) 50 1,000 iunits PO BID Supplement 12/20/17 12/09/22 History mcg (2,000 unit) capsule folic acid 0.8 mg capsule 400 mcg PO DAILY Supplement 12/20/17 12/09/22 History simvastatin 20 mg tablet 20 mg PO HS High cholesterol 12/20/17 12/09/22 History vitamins A,C,K-sssk-elrxux 4,296 1 cap PO BID Supplement 12/20/17 12/09/22 History mcg-226 mg-90 mg capsule (ICaps AREDS) diazepam 5 mg tablet 5 mg PO HSP PRN Sl
--- NOTE | 2022-12-09 08:53 | HMH.PHAINT1 ---
Pharmacy Intervention Comments: MEDICATION RECONCILIATION COMPLETED ON PATIENT USING EXTERNAL FILL HISTORY FROM PHARMACY AND LIST FROM CARDIOLOGY OFFICE. -WENDY DELONG, RUSTAMD
--- NOTE | 2022-12-09 10:56 | PC.NURSE ---
courtesy tech note: pt is sleeping in bed. call light is within reach.
--- NOTE | 2022-12-09 13:08 | PC.NURSE ---
i got pt up to the bedside commode. She was very unsteady and anxious during transfer. did not void.
--- NOTE | 2022-12-09 18:50 | PC.NURSE ---
pt was able to void on the BSC as well as have a bm. Will continue to monitor for urinary retention.
[2022-12-10 04:00] VITALS: BP 140/67; PULSE 61; RESP 16; TEMP 36.8; O2SAT 96; BMI 22.3
[2022-12-10 06:13] LABS: Basophils % 0.2 % (0.1-2.0); Eosinophils # 0.1 K/mm3 (0.0-0.4); Eosinophils % 0.8 % (0.1-12.0); Hemoglobin 12.4 g/dL (12.2-16.2); Lymphocytes # 1.1 K/mm3 (0.7-4.5); Lymphocytes % 13.3 % (10-50); Mean Corpuscular HGB Conc 31.7 g/dL (31.8-35.4); Mean Corpuscular Hemoglobin 30.4 pg (27.0-31.2); Mean Corpuscular Volume 95.7 fl (81-99); Mean Platelet Volume 7.4 fl (7.4-10.4); Monocytes # 0.8 K/mm3 (0.1-1.0); Monocytes % 9.7 % (1.7-9.3); Platelet Count 293 K/mm3 (142-424); Red Blood Count 4.07 M/mm3 (4.20-5.40); Red Cell Distribution Width 13.2 % (11.5-17.5); White Blood Count 7.9 K/mm3 (4.8-10.8)
[2022-12-10 06:18] LABS: Chloride 92 mmol/L (98-107)
[2022-12-10 06:19] LABS: Potassium 3.6 mmoL/L (3.5-5.1); Sodium 129 mmol/L (136-145)
[2022-12-10 06:22] LABS: Anion Gap 11.6 mEq/L (5-15); Blood Urea Nitrogen 12 mg/dl (7-17); Calcium 8.4 mg/dl (8.4-10.2); Carbon Dioxide 29 mmol/L (22.0-30.0); Creatinine Clearance Estimated 31 mL/min (50-200); Estimated Glomerular Filt Rate 118 ml/min (>60); GFR (African American) 142 ML/MIN (>60); Glucose 91 mg/dl (74-100)
--- NOTE | 2022-12-10 07:43 | EXP.ACUTE.PN ---
Subjective *Date: 12/10/22 *Time: 09:06 Interval history: Patient states her legs are very weak. She has difficulty in bearing her weight. She really cannot say if she is dizzy or not. She denies chest pain and shortness of breath. She is voiding as usual. Sodium is 129 this morning. Medical Exam Vital signs and Labs for Last 24 Hours: Vital Signs Temp Pulse Resp BP Pulse Ox 12/10/22 04:00 98.3 F 61 16 140/67 96 12/09/22 20:00 98.2 F 67 18 134/62 97 12/09/22 15:08 98.0 F 66 17 143/67 H 96 Intake and Output 12/09/22 12/10/22 12/10/22 19:59 03:59 11:59 Intake Total 600 / 600 Output Total 250 / 250 0 / 250 0 / 250 Balance 350 / 350 0 / 350 0 / 350 Intake: Intake, Oral Amount 600 / 600 Output: Output, Urine Amount 250 / 250 0 / 250 0 / 250 Other: Number of Unmeasured Voids 0 1 1 Number of Bowel Movements 1 1 Weight 103 lb 6 oz Patient Weight 12/10/22 11:59 Weight 103 lb 6 oz Laboratory Results - last 24 hr 12/09/22 05:35: SARS-CoV-2 (PCR) Not detected, Influenza A Untype (PCR) Not detected, Influenza Type B (PCR) Not detected 12/10/22 05:43: WBC 7.9, RBC 4.07 L, Hgb 12.4, Hct 39.0, MCV 95.7, MCH 30.4, MCHC 31.7 L, RDW 13.2, Plt Count 293, MPV 7.4, Neut % (Auto) 76.0, Lymph % (Auto) 13.3, [place] % (Auto) 9.7 H, Eos % (Auto) 0.8, Baso % (Auto) 0.2, Neut # (Auto) 6.0, Lymph # (Auto) 1.1, [place] # (Auto) 0.8, Eos # (Auto) 0.1, Baso # (Auto) 0.0 12/10/22 05:43: Sodium 129 L, Potassium 3.6, Chloride 92 L, Carbon Dioxide 29, Anion Gap 11.6, BUN 12, Creatinine 0.50 L D, Estimated Creat Clear 31, Estimated GFR 118, Est GFR ( Amer) 142 D, Glucose 91, Calcium 8.4 I & O for Labs for Last 24 Hours: Intake & Output 12/07/22 12/08/22 12/09/22 12/10/22 11:59 11:59 11:59 11:59 Intake Total 120 / 120 600 / 600 Output Total 1100 / 1100 250 / 250 Balance -980 / -980 350 / 350 Weight 98 lb 103 lb 6 oz Constitutional: Present no acute distress Comment:: Sitting up in bedside chair eating her breakfast. Appears comfortable. Respiratory: Present CTA bilaterally (Anteriorly and posteriorly) Cardiac: Present Reg Rate and Rhythm GI: Present soft; Absent distention or tenderness Extremities: Absent edema Comment:: Patient has SCUDs on Neuro: Present alert and oriented x 3 Assessment and Plan *Assessment and plan (1) Dizziness: Status: Acute Category: Medical Code(s): R42 - Dizziness and giddiness (2) Vertigo: Status: Acute Category: Medical Code(s): R42 - Dizziness and giddiness (3) Chronic headache: Status: Chronic Category: Medical Code(s): R51.9 - Headache, unspecified; G89.29 - Other chronic pain (4) Urinary retention: Status: Acute Category: Medical Code(s): R33.9 - Retention of urine, unspecified (5) Cervical spondylosis: Status: Chronic Category: Medical Code(s): M47.812 - Spondylosis without myelopathy or radiculopathy, cervical region (6) Cervical radiculopathy: Status: Acute Category: Medical Code(s): M54.12 - Radiculopathy, cervical region (7) Essential hypertension: Status: Chronic Category: Medical Code(s): I10 - Essential (primary) hypertension (8) Muscle weakness: Status: Acute Category: Medical Code(s): M62.81 - Muscle weakness (generalized) Plan Physical therapy to see patient today. Dr. Rojas entry - Saw patient, agree with above note.
[2022-12-10 08:00] VITALS: BP 123/69; PULSE 69; RESP 18; TEMP 36.9; O2SAT 96
[2022-12-10 08:40] VITALS: BMI 22.3
--- NOTE | 2022-12-10 10:31 | HMH.PTEV ---
Physical Therapy Evaluation Rehab PT IP Evaluation Start: 12/10/22 08:00 Freq: ONCE Status: Active Protocol: Document 12/10/22 10:17 PHORNE (Rec: 12/10/22 10:31 PHORNE [id number]) Subjective/History History History 82 yowf adm to [facility] with urinary retention, general weakness, and dizziness/ vertigo. She reports sudden onset of dizziness/vertigo ~1 wk ago without a specific positional component to her symptoms, but N/V associated with these symptoms. She has hx of chronic cervical spondylosis, chronic lumbar DDD, HTN, OA. She also reports having impacted cerumen removed from L ear ~ 1 wk ago, and an episode of HTN at an appt with pain management of 196/86 mmHg. She lives alone, and has a cane, but she generally is independent with all mobility and ADLs without AD. Subjective Subjective Pt reports no dizziness this date, but feels unsteady on her feet, and some mild feelings of nausea. Rehab PT IP Eval Objective Appearance Patient Behavior Appropriate Patient Orientation Person,Place,Time Difficulty following instructions none Speech Pattern Clear Ambulation Patient Able to Ambulate Yes Ambulation Observation IP General Gait Pattern Observation Ataxic Gait,Shuffling Step Ambulation Distance (feet) 10 Ambulation Assistive Device None Ambulation Ability Moderate x 1 (50% assist) Balance Ability to Arise Able, uses arms to help Sitting Balance Steady, safe Standing Balance Unsteady Dynamic Sitting Balance Ability Good Dynamic Standing Balance Ability Poor Transfers Bed Transfer Ability Minimal x 1 (25% assist) Chair Transfer Ability Moderate x 1 (50% assist) Sit to Stand Bed Transfer Ability Minimal x 1 (25% assist) Sit to Stand Chair Transfer Ability Minimal x 1 (25% assist) ROM All Extremities PT ROM Status WFL Abnormal ROM Comment B SHLD flex/ABD limited at baseline MMT All Extremities PT MMT WFL Rehab PT IP prob,goals,plan Problems Date of Evaluation:
[2022-12-10 15:19] VITALS: BP 126/64; PULSE 67; RESP 18; TEMP 37.2; O2SAT 95
--- NOTE | 2022-12-10 16:31 | CARE MANAGER ---
Addendum entered by Vanessa Mendieta RN 12/11/22 09:50: Patient discharging to assisted living at [facility] today. Son is transporting. Pearl @ notified. Original Note: CM met with patient to discuss discharge planning needs. PT evaluated patient this morning and recommended SNF for safe discharge. Patient is admitted as observation and is aware that SNF stay will be out of pocket. She requested [facility] and signed patient choice, which was placed on chart. Pearl from met with patient at bedside and has offered a bed to patient. Dr. Rojas notified that patient has a bed at [facility], however he is unable to discharge patient today. Plan will be for discharge to tomorrow morning. Son plans to transport.
--- NOTE | 2022-12-10 17:33 | PC.NURSE ---
VS stable, patient remained on room air. Patient ambulated to hallway with pt using rolling walker. Unsteady while walking and transferring, requiring 1 to 2 assist. Some dizziness reported this am, meclizine given, relief noted.
[2022-12-10 20:00] VITALS: BP 144/66; RESP 18; TEMP 37; O2SAT 94
[2022-12-11] VITALS: BP 133/64; PULSE 66; RESP 18; TEMP 37.1; O2SAT 94
[2022-12-11 04:00] VITALS: BP 146/71; PULSE 66; RESP 18; TEMP 36.8; O2SAT 96; BMI 21.4
[2022-12-11 06:29] LABS: Basophils % 0.3 % (0.1-2.0); Chloride 100 mmol/L (98-107); Eosinophils # 0.1 K/mm3 (0.0-0.4); Eosinophils % 0.9 % (0.1-12.0); Hemoglobin 12.1 g/dL (12.2-16.2); Lymphocytes % 18.2 % (10-50); Mean Corpuscular HGB Conc 31.1 g/dL (31.8-35.4); Mean Corpuscular Volume 96.4 fl (81-99); Mean Platelet Volume 7.5 fl (7.4-10.4); Monocytes # 0.7 K/mm3 (0.1-1.0); Monocytes % 13.5 % (1.7-9.3); Neutrophils # 3.6 K/mm3 (1.8-7.8); Neutrophils % 67.1 % (37.0-80.0); Platelet Count 289 K/mm3 (142-424); Potassium 3.7 mmoL/L (3.5-5.1); Red Blood Count 4.04 M/mm3 (4.20-5.40); Red Cell Distribution Width 13.4 % (11.5-17.5); Sodium 135 mmol/L (136-145); White Blood Count 5.3 K/mm3 (4.8-10.8)
[2022-12-11 06:32] LABS: Anion Gap 9.7 mEq/L (5-15); Blood Urea Nitrogen 12 mg/dl (7-17); Calcium 8.4 mg/dl (8.4-10.2); Carbon Dioxide 29 mmol/L (22.0-30.0); Creatinine Clearance Estimated 30 mL/min (50-200); Estimated Glomerular Filt Rate 118 ml/min (>60); GFR (African American) 142 ML/MIN (>60); Glucose 84 mg/dl (74-100)
[2022-12-11 08:00] VITALS: BP 163/78; PULSE 65; RESP 18; TEMP 36.9; O2SAT 98
--- NOTE | 2022-12-11 08:40 | EXP.ACUTE.PN ---
Subjective *Date: 12/11/22 *Time: 08:40 Interval history: Patient feels a little better this morning, less dizziness, was able to take a few steps with assistance. Anxious to go to [place] for rehab. Medical Exam Vital signs and Labs for Last 24 Hours: Vital Signs Temp Pulse Resp BP Pulse Ox 12/11/22 04:00 98.2 F 66 18 146/71 H 96 12/11/22 00:00 98.8 F 66 18 133/64 94 L 12/10/22 20:00 98.6 F 18 144/66 H 94 L 12/10/22 15:19 98.9 F 67 18 126/64 95 Intake and Output 12/10/22 12/11/22 12/11/22 23:59 07:59 15:59 Intake Total 240 / 960 Output Total 500 / 700 300 / 300 Balance -260 / 260 -300 / -300 Intake: Intake, Oral Amount 240 / 960 Output: Output, Urine Amount 500 / 700 300 / 300 Other: Weight 99 lb 5 oz Patient Weight 12/11/22 23:59 Weight 99 lb 5 oz Laboratory Results - last 24 hr 12/11/22 05:46: WBC 5.3 D, RBC 4.04 L, Hgb 12.1 L, Hct 39.0, MCV 96.4, MCH 30.0, MCHC 31.1 L, RDW 13.4, Plt Count 289, MPV 7.5, Neut % (Auto) 67.1, Lymph % (Auto) 18.2, [place] % (Auto) 13.5 H, Eos % (Auto) 0.9, Baso % (Auto) 0.3, Neut # (Auto) 3.6, Lymph # (Auto) 1.0, [place] # (Auto) 0.7, Eos # (Auto) 0.1, Baso # (Auto) 0.0 12/11/22 05:46: Sodium 135 L, Potassium 3.7, Chloride 100, Carbon Dioxide 29, Anion Gap 9.7, BUN 12, Creatinine 0.50 L, Estimated Creat Clear 30, Estimated GFR 118, Est GFR ( Amer) 142, Glucose 84, Calcium 8.4 I & O for Labs for Last 24 Hours: Intake & Output 12/08/22 12/09/22 12/10/22 12/11/22 23:59 23:59 23:59 23:59 Intake Total 720 / 720 960 / 960 Output Total 1350 / 1350 700 / 700 300 / 300 Balance -630 / -630 260 / 260 -300 / -300 Weight 98 lb 103 lb 5.996 oz 99 lb 5 oz Constitutional: Present no acute distress Respiratory: Present CTA bilaterally (Anteriorly and posteriorly) Cardiac: Present Reg Rate and Rhythm GI: Present soft; Absent distention or tenderness Extremities: Absent edema Neuro: Present alert and oriented x 3 Assessment and Plan *Assessment and plan (1) Dizziness: Status: Acute Category: Medical Code(s): R42 - Dizziness and giddiness (2) Vertigo: Status: Acute Category: Medical Code(s): R42 - Dizziness and giddiness (3) Chronic headache: Status: Chronic Category: Medical Code(s): R51.9 - Headache, unspecified; G89.29 - Other chronic pain (4) Urinary retention: Status: Acute Category: Medical Code(s): R33.9 - Retention of urine, unspecified (5) Cervical spondylosis: Status: Chronic Category: Medical Code(s): M47.812 - Spondylosis without myelopathy or radiculopathy, cervical region (6) Cervical radiculopathy: Status: Acute Category: Medical Code(s): M54.12 - Radiculopathy, cervical region (7) Essential hypertension: Status: Chronic Category: Medical Code(s): I10 - Essential (primary) hypertension (8) Muscle weakness: Status: Acute Category: Medical Code(s): M62.81 - Muscle weakness (generalized) (9) Hyponatremia: Status: Acute Category: Medical Code(s): E87.1 - Hypo-osmolality and hyponatremia Plan Labs have improved, OK for discharge today to [place] for physical therapy, [facility] send [facility] to [facility].
--- NOTE | 2022-12-11 08:59 | HMH.PHAINT1 ---
Pharmacy Intervention Comments: Discharge medication counseling completed. Patient was starting meclizine 25mg as needed for dizziness. Patient said this had been discussed with her earlier this morning and already knew the name of new med and directions. Told of potential side effect of drowsiness. Verified that patient knew this med was being prepared at [facility]. Patient verbalized understanding and had no questions.
--- NOTE | 2022-12-11 09:09 | EXP.ACUTE.PN ---
Subjective *Date: 12/11/22 *Time: 09:09 Interval history: Patient states she may be a little bit better. She is eating as usual. Bowels have moved. She is voiding QS. She denies chest pain and shortness of breath. Her biggest issue is getting up and using the bedside commode. She has some dizziness with this process. She did work with physical therapy yesterday and walked in the hallway with a walker with PT at her side. Labs this morning are satisfactory. Plan is for her to go to [facility] today. Medical Exam Vital signs and Labs for Last 24 Hours: Vital Signs Temp Pulse Resp BP Pulse Ox 12/11/22 08:00 98.5 F 65 18 163/78 H 98 12/11/22 04:00 98.2 F 66 18 146/71 H 96 12/11/22 00:00 98.8 F 66 18 133/64 94 L 12/10/22 20:00 98.6 F 18 144/66 H 94 L 12/10/22 15:19 98.9 F 67 18 126/64 95 Intake and Output 12/10/22 12/11/22 12/11/22 19:59 03:59 11:59 Intake Total 480 / 480 360 / 840 Output Total 0 / 0 500 / 500 600 / 1100 Balance 480 / 480 -500 / -20 -240 / -260 Intake: Intake, Oral Amount 480 / 480 360 / 840 Output: Output, Urine Amount 0 / 0 500 / 500 600 / 1100 Other: Number of Unmeasured Voids 1 Number of Bowel Movements 1 1 Weight 99 lb 5 oz Patient Weight 12/11/22 11:59 Weight 99 lb 5 oz Laboratory Results - last 24 hr 12/11/22 05:46: WBC 5.3 D, RBC 4.04 L, Hgb 12.1 L, Hct 39.0, MCV 96.4, MCH 30.0, MCHC 31.1 L, RDW 13.4, Plt Count 289, MPV 7.5, Neut % (Auto) 67.1, Lymph % (Auto) 18.2, [place] % (Auto) 13.5 H, Eos % (Auto) 0.9, Baso % (Auto) 0.3, Neut # (Auto) 3.6, Lymph # (Auto) 1.0, [place] # (Auto) 0.7, Eos # (Auto) 0.1, Baso # (Auto) 0.0 12/11/22 05:46: Sodium 135 L, Potassium 3.7, Chloride 100, Carbon Dioxide 29, Anion Gap 9.7, BUN 12, Creatinine 0.50 L, Estimated Creat Clear 30, Estimated GFR 118, Est GFR ( Amer) 142, Glucose 84, Calcium 8.4 I & O for Labs for Last 24 Hours: Intake & Output 12/08/22 12/09/22 12/10/22 12/11/22 11:59 11:59 11:59 11:59 Intake Total 120 / 120 1080 / 1080 840 / 840 Output Total 1100 / 1100 450 / 450 1100 / 1100 Balance -980 / -980 630 / 630 -260 / -260 Weight 98 lb 103 lb 5.996 oz 99 lb 5 oz Constitutional: Present no acute distress Comment:: Lying comfortably in the bed. Respiratory: Present CTA bilaterally (Anteriorly and posteriorly) Cardiac: Present Reg Rate and Rhythm GI: Present soft; Absent distention, tenderness or guarding Extremities: Present full ROM; Absent tenderness, edema or calf tenderness Neuro: Present alert and oriented x 3 Assessment and Plan *Assessment and plan (1) Dizziness: Status: Acute Category: Medical Code(s): R42 - Dizziness and giddiness (2) Vertigo: Status: Acute Category: Medical Code(s): R42 - Dizziness and giddiness (3) Chronic headache: Status: Chronic Category: Medical Code(s): R51.9 - Headache, unspecified; G89.29 - Other chronic pain (4) Urinary retention: Status: Acute Category: Medical Code(s): R33.9 - Retention of urine, unspecified (5) Cervical spondylosis: Status: Chronic Category: Medical Code(s): M47.812 - Spondylosis without myelopathy or radiculopathy, cervical region (6) Cervical radiculopathy: Status: Acute Category: Medical Code(s): M54.12 - Radiculopathy, cervical region (7) Essential hypertension: Status: Chronic Category: Medical Code(s): I10 - Essential (primary) hypertension (8) Muscle weakness: Status: Acute Category: Medical Code(s): M62.81 - Muscle weakness (generalized) (9) Hyponatremia: Status: Acute Category: Medical Code(s): E87.1 - Hypo-osmolality and hyponatremia Plan Labs have improved, OK for discharge today to [place] [facility] for physical therapy, will send Rx [facility]ine to [facility].
--- NOTE | 2022-12-11 09:13 | EXP.DC.SUM ---
General Admission date:: 12/09/22 Discharge date: 12/11/22 HPI HPI HPI: 82 year old female with a fairly extensive medical history presented to [facility] ER last night complaining of sever dizziness. She states she has been having several neurologic issues lately consisting of dizziness and some fairly persistent headaches. She states she saw Dr. Subramanian this past week and was diagnosed with Vertigo and chronic headaches and was referred to [facility] physical therapy department for treatment. She has also been seen at [facility] pain management clinic and has been receiving epidural injections. Patient was given Meclizine in the ER which helped some but she had return of symptoms when she stood up out of bed. She also had issues urinating. She had a large post void residual so a [place] catheter was placed and 1,200 mL of urine was present. Patient lives alone at home. Hospital Course Hospital Course Hospital Course: After admission dizziness did improve. She needed assistance with getting out of bed. Physical therapy worked with the patient and she was able to walk in the hallway with help and walker. Her legs did feel stronger. Physical therapy felt she would benefit for ongoing rehab in a skilled facility. Thus arrangements were made for her to go to [place] for ongoing treatment. She would need to continue with help for getting out of bed and using bedside commode are walking to the bathroom. Laboratory data did improve. She remained alert throughout her stay. She was able to eat as usual. Meds as per medication reconciliation sheet follow-up in the office of [facility] as scheduled. Exam Data for Last 24 hours Vital signs and Labs for Last 24 Hours: Temp Pulse Resp BP Pulse Ox 98.5 F 65 18 163/78 H 98 12/11/22 08:00 12/11/22 08:00 12/11/22 08:00 12/11/22 08:00 12/11/22 08:00 Laboratory Results - last 24 hr 12/11/22 05:46: WBC 5.3 D, RBC 4.04 L, Hgb 12.1 L, Hct 39.0, MCV 96.4, MCH 30.0, MCHC 31.1 L, RDW 13.4, Plt Count 289, MPV 7.5, Neut % (Auto) 67.1, Lymph % (Auto) 18.2, [place] % (Auto) 13.5 H, Eos % (Auto) 0.9, Baso % (Auto) 0.3, Neut # (Auto) 3.6, Lymph # (Auto) 1.0, [place] # (Auto) 0.7, Eos # (Auto) 0.1, Baso # (Auto) 0.0 12/11/22 05:46: Sodium 135 L, Potassium 3.7, Chloride 100, Carbon Dioxide 29, Anion Gap 9.7, BUN 12, Creatinine 0.50 L, Estimated Creat Clear 30, Estimated GFR 118, Est GFR ( Amer) 142, Glucose 84, Calcium 8.4 I & O for Last 24 hours: Intake & Output 12/08/22 12/09/22 12/10/22 12/11/22 11:59 11:59 11:59 11:59 Intake Total 120 / 120 1080 / 1080 840 / 840 Output Total 1100 / 1100 450 / 450 1100 / 1100 Balance -980 / -980 630 / 630 -260 / -260 Weight 98 lb 103 lb 5.996 oz 99 lb 5 oz Narrative: Medical Exam Vital signs and Labs for Last 24 Hours: Vital Signs ? Temp Pulse Resp BP Pulse Ox ?12/11/22 04:00 ?98.2 F ?66 ?18 ?146/71 H ?96 ?12/11/22 00:00 ?98.8 F ?66 ?18 ?133/64 ?94 L ?12/10/22 20:00 ?98.6 F ? ?18 ?144/66 H ?94 L ?12/10/22 15:19 ?98.9 F ?67 ?18 ?126/64 ?95 Intake and Output ? 12/10/22 12/11/22 12/11/22 ? 23:59 07:59 15:59 Intake Total 240 / 960 ? ? Output Total 500 / 700 300 / 300 ? Balance -260 / 260 -300 / -300 ? Intake: ? Intake, Oral Amount 240 / 960 ? ? Output: ? Output, Urine Amount 500 / 700 300 / 300 ? Other: ? Weight ? 99 lb 5 oz ? Patient Weight ? 12/11/22 ? 23:59 Weight 99 lb 5 oz Laboratory Results - last 24 hr 12/11/22 05:46: WBC 5.3? D,?RBC 4.04 L,?Hgb 12.1 L, Hct 39.0, MCV 96.4, MCH 30.0,?MCHC 31.1 L, RDW 13.4, Plt Count 289, MPV 7.5, Neut % (Auto) 67.1, Lymph % (Auto) 18.2,?[place] % (Auto) 13.5 H, Eos % (Auto) 0.9, Baso % (Auto) 0.3, Neut # (Auto) 3.6, Lymph # (Auto) 1.0, [place] # (Auto) 0.7, Eos # (Auto) 0.1, Baso # (Auto) 0.0 12/11/22 05:46: Sodium 135 L, Potassium 3.7, Chloride 100, Carbon Dioxide 29, Anion Gap 9.7, BUN 12,?Creatinine 0.50 L, Estimated Creat Clear 30, Estimated GFR 118, Est GFR ( Amer) 142, Glucose 84, Calcium 8.4
--- NOTE | 2022-12-11 10:19 | PC.NURSE ---
called report to brenda haley
--- NOTE | 2022-12-11 11:12 | PC.NURSE ---
anthony gimenez rounded on pt. pt waiting on ride to snf. pt okay, no needs at this time.
--- NOTE | 2022-12-13 14:13 | CARE MANAGER ---
Contacted patient related to hospital discharge. She is aware of her follow up appointment and the meclizine is seeming to help with her dizziness. She denies any questions or concerns. CARRIE Epps
== END 2022-12-11 11:24 | disposition home or self-care (01) ==
LOC: ER 03:00 → 2ND 05:18
PROVIDERS: Admitting Provider Family Medicine; Emergency Provider Family Medicine; PCP Family Medicine; Visit Provider Family Medicine
DX: R42 Dizziness and giddiness (principal); Z79.899 Other long term (current) drug therapy; R51.9 Headache, unspecified; G89.29 Other chronic pain; R33.9 Retention of urine, unspecified; M47.812 Spondylosis without myelopathy or radiculopathy, cervical region; M54.12 Radiculopathy, cervical region; I10 Essential (primary) hypertension; M62.81 Muscle weakness (generalized); E87.1 Hypo-osmolality and hyponatremia
CPT/HCPCS: G0378; 36415; 70450; 80048; 80053; 81001; 85025; 87635; 87636; 97116; 97163; 99285; C9803; J2405; U0003; U0005

== ENCOUNTER 2022-12-19 13:45 | Outpatient (CLI) | payer MEDICARE, SELFPAY ==
[2022-12-19 14:20] VITALS: BP 146/66; PULSE 73; RESP 18; TEMP 36.4; O2SAT 96
== END 2022-12-19 14:20 | disposition home or self-care (01) ==
LOC: INF 13:46
PROVIDERS: PCP Family Medicine; Visit Provider Family Medicine
DX: M81.0 Age-related osteoporosis without current pathological fracture (principal)
CPT/HCPCS: 96372; J0897

== ENCOUNTER → 2023-02-27 11:22 | Outpatient (CLI) | payer MEDICARE, SELFPAY ==
--- NOTE | 2023-02-27 11:30 | XR_ITS ---
FINAL REPORT CLINICAL HISTORY: INJURY, fell yesterday COMPARISON: None FINDINGS: LEFT WRIST Three views demonstrate a transverse minimally impacted fracture of the distal radius. There is marked osteoarthritic change in the basilar joint. There is an ossific density at the ulnar margin of the carpal bones that may be a remote fracture deformity. The soft tissues are unremarkable. IMPRESSION: Transverse minimally impacted fracture of the distal radius. Reviewed, Interpreted and Dictated by Aren Mcbride MD Transcribed by Felicia Bejarano Authenticated and [facility]
--- NOTE | 2023-02-27 11:30 | XR_ITS ---
FINAL REPORT CLINICAL HISTORY: INJURY, fell backwards COMPARISON: None FINDINGS: 2 views of the left forearm were obtained. There is a transverse fracture, minimally impacted, involving the distal radius. There is marked degenerative change in the carpus, described on wrist films from the same date. The elbow is not well visualized on this examination. IMPRESSION: Transverse fracture minimally impacted involving the distal radius. Reviewed, Interpreted and Dictated by Aren Mcbride MD Transcribed by Felicia Bejarano Authenticated and [facility]
--- NOTE | 2023-02-27 11:30 | XR_ITS ---
FINAL REPORT CLINICAL HISTORY: INJURY, fell backwards yesterday COMPARISON: None FINDINGS: LEFT HIP: Two views of the left hip demonstrate no acute fracture or dislocation. The joint spaces are narrowed bilaterally, compatible with osteoarthritis. The visualized bony structures are well aligned. No soft tissue abnormality is seen. There is a laminectomy defect in the lower lumbar spine as well as orthopedic hardware compatible with a posterior fusion. IMPRESSION: No acute bony abnormality. Reviewed, Interpreted and Dictated by Aren Mcbride MD Transcribed by Felicia Bejarano Authenticated and [facility]
== END ==
LOC: LAB 11:22 → RAD 11:25
PROVIDERS: PCP Family Medicine; Visit Provider Physician Assistant
DX: M79.642 Pain in left hand (principal); M79.632 Pain in left forearm; M25.532 Pain in left wrist; S69.92XA Unspecified injury of left wrist, hand and finger(s), initial encounter
CPT/HCPCS: 73090; 73110; 73502

== ENCOUNTER → 2023-03-12 13:33 | Outpatient (CLI) | payer MEDICARE, SELFPAY ==
--- NOTE | 2023-03-12 13:34 | MR_ITS ---
FINAL REPORT CLINICAL HISTORY: eval for posterior circulation stroke, HEADACHES FINDINGS: Multiplanar MR imaging of the brain was performed without contrast. There is age-appropriate atrophy. There is moderate to severe chronic ischemic/gliotic change. There is a chronic left cerebellar infarct. There is no evidence of intracranial hemorrhage or mass. The ventricular size is normal. There is no evidence of shift of the midline structures. No abnormal extra-axial fluid collection is identified. Abnormal soft tissue posterior to the dens results in mild central canal stenosis at C1-C2. There is no evidence of cord edema. No area of abnormal restricted diffusion is identified. Normal major vessel vascular flow voids are seen. IMPRESSION: Atrophy with moderate to severe chronic ischemic/gliotic change. Chronic left cerebellar infarct. Abnormal soft tissue posterior to the dens resulting in mild central canal stenosis at C1-C2. No evidence of cord edema. Reviewed, Interpreted and Dictated by oRbe Lino III, MD Transcribed by Cayetano Stevens Authenticated and [facility]
--- NOTE | 2023-03-12 13:34 | MR_ITS ---
FINAL REPORT CLINICAL HISTORY: eval for posterior circulation stroke FINDINGS: Multiple projection images of the brain arterial vasculature were obtained without contrast. The raw data images were also reviewed the exam is suboptimal. The distal left vertebral artery is not visualized of uncertain significance which could be due to occlusion or slow flow. The distal internal carotid, distal vertebral and basilar arteries have an unremarkable appearance without evidence of significant stenosis or occlusion. The proximal anterior, middle and posterior cerebral arteries have an unremarkable appearance. There is no evidence of significant stenosis or major branch occlusion. No aneurysm or vascular malformation is identified. IMPRESSION: Suboptimal exam. Distal left vertebral artery not visualized of uncertain significance. Findings could be due to occlusion or slow flow. Reviewed, Interpreted and Dictated by Robe Lino III, MD Transcribed by Cayetano Stevens Authenticated and [facility]
--- NOTE | 2023-03-12 13:34 | MR_ITS ---
FINAL REPORT CLINICAL HISTORY: eval for posterior circulation stroke FINDINGS: Multiple projection images of the neck arterial vasculature were obtained without contrast. The raw data images were also reviewed. Severe motion artifact renders this study essentially nondiagnostic. There is no definite carotid stenosis. The left vertebral artery is not well visualized which may be due to hypoplastic vessel, slow flow or occlusion. IMPRESSION: Essentially nondiagnostic exam. No definite carotid stenosis. Left vertebral not well-visualized. Reviewed, Interpreted and Dictated by Robe Lino III, MD Transcribed by Cayetano Stevens Authenticated and . [facility]
== END ==
PROVIDERS: PCP Family Medicine; Visit Provider Specialist
DX: G95.9 Disease of spinal cord, unspecified (principal); I63.50 Cerebral infarction due to unspecified occlusion or stenosis of unspecified cerebral artery; M47.812 Spondylosis without myelopathy or radiculopathy, cervical region; M54.2 Cervicalgia
CPT/HCPCS: 70544; 70547; 70551

== ENCOUNTER → 2023-04-19 13:39 | Outpatient (POV) | payer MEDICARE, SELFPAY ==
[2023-04-19 14:43] VITALS: BP 165/75; PULSE 65; RESP 20; TEMP 36.2; O2SAT 97; BMI 22.3
--- NOTE | 2023-04-19 15:13 | EXP.PAIN.SOA ---
[facility] Pain Management SOAP Note Subjective:: This patient is a pleasant 82-year-old white female who we have been seeing for neck pain with headaches and cervical radicular symptoms. She has seen Dr. Mcintosh for neurosurgical evaluation. She is not a candidate for surgery. We have done occipital nerve blocks without much relief. She is also seeing Dr. Subramanian who recommended physical therapy. After discussing with the patient and going over the plan from Dr. Subramanian it is advisable that she complete physical therapy before we pursue any further injections. I do believe she may benefit from occipital nerve blocks in the future however she is to complete 6 weeks of physical therapy and we will reevaluate. Objective:: Alert and oriented x3 no acute distress. Patient does have antalgic gait. Motor strength of lower extremities is 5/5. There is no gross sensory deficit. Motor strength of upper extremities is 5/5. There is no gross sensory deficit. Assessment:: Degenerative disease of cervical spine with cervical radiculopathy symptoms. Bilateral occipital neuralgia. Headaches. Plan:: Patient continues to undergo physical therapy for headaches and unsteadiness. We will follow-up with her after she completes 6 weeks of physical therapy. We will reevaluate her symptoms at that time. She may be a candidate for occipital nerve blocks at that time. [facility] Disclaimer: The information contained in this section may have been updated after the patient was seen, as this information can be updated by other users. Medical History (Updated 04/17/23 @ 14:31 by Maria Del Carmen Ford RN) Anxiety Aortic insufficiency Aortic regurgitation Basal cell carcinoma Cervical dystonia Cervical radiculopathy Cervical spondylosis Chest pain Cholecystitis Chronic headache Degenerative disc disease, lumbar Diastolic dysfunction Diverticulosis of colon Dyspnea Essential hypertension Headache HLD (hyperlipidemia) Hx of cataract Hx of cataract Impacted cerumen, left ear Low back pain Lumbar spondylolysis Mitral regurgitation Neck pain Occipital neuralgia Osteoporosis Palpitations Postlaminectomy syndrome of lumbar region Vitamin D deficiency Surgical History History of back surgery History of bunionectomy History of ERCP History of esophagogastroduodenoscopy (EGD) History of knee replacement procedure of right knee History of surgery on arm History of total left knee replacement (TKR) History of total right knee replacement Hx of arthroscopy of left knee Hx of carpal tunnel repair Hx of cholecystectomy Hx of hysterectomy Hx of oral surgery Hx of shoulder replacement Hx of tubal ligation Hx of varicose vein stripping Status post laparoscopic cholecystectomy Family History Other No significant family history Social History Smoking Status: Never smoker alcohol intake: never substance use type: denies use current occupational status: other Travel in the last 8 weeks: None household members: none housing: house lives independently: Yes marital status: single current occupational exposures/hazards: Yes
== END ==
PROVIDERS: PCP Family Medicine; Visit Provider Anesthesiology
DX: M50.10 Cervical disc disorder with radiculopathy, unspecified cervical region (principal); M54.81 Occipital neuralgia; R51.9 Headache, unspecified
CPT/HCPCS: 99212; G0463

== ENCOUNTER → 2023-05-02 08:43 | Outpatient (CLI) | payer MEDICARE, SELFPAY ==
--- NOTE | 2023-05-02 08:43 | CA_ITS ---
APPROVED REPORT EXAM: Comprehensive 2D, Doppler, and color-flow Echocardiogram Extrusion Press Supervisor: Suzette Hinojosa RVT Ht: 4 ft 9 in Wt: 96lbs BSA: 1.32 BP: 142/82 mmHg Indications: AI,MR,PHTN,ABN EKG,HX CVA,HTN,HLD,PALPS,HX SVT 2D Dimensions LVOT 1.52 cm (M/F) 1.5-2.5 LA Volume 49.10 mL LA Volume Index 37.20 mL/m2 (M/F) 16-34 M-Mode Dimensions RVDd 1.97 cm (0.9-2.6) LA Diam 4.11 cm (1.9-4.0) LVDd 3.60 cm (3.5-5.7) Ao Diam 2.92 cm (2.0-3.7) LVDs 2.47 cm (3.5-5.7) IVSd 1.91 cm (0.6-1.1) PWd 0.47 cm (0.6-1.1) EF (Teich) 60.10% FS 31.40% EDV (Teich) 54.40 mL TAPSE 2.86 (<1.7) ESV (Teich) 21.70 mL LV Diastology E Decel Time 150.00 (160-240 msec) E/A Ratio 0.5 MED E' 6.90 (< 7 cm/sec) E'/MED E' Ratio 8.64 (>14) LAT E' 2.50 (<10 cm/sec) E/LAT E' Ratio 23.84 (>14) Aortic Valve LVOT Max 97.00 (70-110 cm/s) LVOT VTI 17.55 cm AoV Peak Addy. 169.00 (50-130 cm/s) AI PHT 1172.00 ms AO Peak GR. 11.40 mmHg AO Mean GR. 6.10 (<5 mmHg) AO VTI 31.68 (18-25 cm) ELEAZAR (VTI) 1.01 (2.5-4.5 cm2) Mitral Valve MV E Max Addy. 60.00 (40-130 cm/s) MV A Velocity 119.00 (40-130 cm/s) E/A Ratio 0.50 MV Decel. Time 150.00 (160-240 ms) MV PHT 44.00 ms Pulmonary Valve PV Peak Velocity 92.00 (50-150 cm/s) Tricuspid Valve TR P. Velocity 279.00 cm/s RAP Estimate 10.00 mmHg RVSP 41.20 mmHg Left Ventricle The left ventricle is normal size. The left ventricular systolic function is mildly reduced There is increased LV wall thickness. Proximal septal thickening is present. 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 The basal inferior, septal, and inferoseptal LV gonzalez are severely hypokinetic. Grade 2 diastolic dysfunction is present. LVEF is 45-50%. Right Ventricle Right ventricle is mildly dilated. The right ventricular systolic function is normal. Atria Left atrium is mildly dilated. Right atrium is mildly dilated. There is no Doppler evidence of interatrial shunt. Aortic Valve The aortic valve is mildly thickened. There is no aortic valvular stenosis. Mild aortic regurgitation. Mitral Valve The mitral valve leaflets are mildly thickened. Mild mitral regurgitation. Tricuspid Valve The tricuspid valve leaflets are thin and pliable. Mild tricuspid regurgitation. RVSP is 30 mmHg + RA pressure. Pulmonic Valve The pulmonary valve is normal in structure. Mild pulmonic regurgitation. Great Vessels The aortic root is normal in size. The ascending aorta is not well visualized. The IVC is not well visualized. Pericardium There is no pericardial effusion. Other Information Study Quality: Fair Conclusion Mild reduction in global LV systolic function (LVEF 45-50%). Increased LV wall thickness. Mildly dilated RV with normal RV systolic function. Mild biatrial dilation. Mild MR, TR, AI, MS. Due to reduction in LV systolic function, increased LV wall thickness, and wall motion abnormalities, ischemic evaluation, as well as evaluation for cardiac amyloidosis, is recommended. Electronically signed by : Yasmeen Enciso MD 05/04/2023 21:21:04
== END ==
PROVIDERS: PCP Family Medicine; Visit Provider Nurse Practitioner
DX: E78.5 Hyperlipidemia, unspecified (principal); I10 Essential (primary) hypertension; I27.20 Pulmonary hypertension, unspecified; I34.0 Nonrheumatic mitral (valve) insufficiency; I63.50 Cerebral infarction due to unspecified occlusion or stenosis of unspecified cerebral artery; R42 Dizziness and giddiness; R94.31 Abnormal electrocardiogram [ECG] [EKG]
CPT/HCPCS: 93306

== ENCOUNTER 2023-06-13 09:28 | Outpatient (RCR) | payer MEDICARE, SELFPAY ==
--- NOTE | 2023-06-13 10:35 | HMH.PTOPEV ---
PT Outpatient Evaluation Rehab PT Outpatient Evaluation Start: 06/13/23 09:32 Freq: Status: Active Protocol: Document 06/13/23 10:25 PHORNE (Rec: 06/13/23 10:35 PHORNE [id number]) E-signed By Rei Bazzi, PT Outpatient Therapy Subjective History Subjective History This is the initial PT eval for Navya Clifton, 82 yowf who presents with 8-9 mos hx of dizziness. She reports no symptoms of vertigos, but general sensation of imbalance and weakness that appears intermittently. Unfortunately, she suffers from multiple co- morbid conditions and takes multiple medications that could all result in the symptoms she describes. She had MRI of her brain ~3 mos ago which shows prior L cerebellar infarct, abnormal soft tissue posterior to the dens, and age appropriate atrophy. She continues to report difficulty with transfers, especially sit to stand, and general feelings of malaise and sleepiness. She presents this date with no outright dizziness per her report and she is currently being treated for cervical pain and balance disruption by another therapist in our clinic. She shows age appropriate response to all occulomotor testing this date without dizziness or nystagmus noted. Her extensive past medical and surgical history as follows per her last visit with the cardiology clinic: Medical History (Reviewed @ 14:16 by Courtney Brock) Anxiety Aortic insufficiency Aortic regurgitation Basal cell carcinoma Cervical dystonia Cervical radiculopathy Cervical spondylosis Chest pain Cholecystitis Chronic headache Degenerative disc disease, lumbar Diastolic dysfunction Diverticulosis of colon Dyspnea Essential hypertension Headache HLD (hyperlipidemia) Needs fasting lipid profile, goal is LDL less than 70. Hx of cataract right eye Hx of cataract left eye Impacted cerumen, left ear Low back pain Lumbar spondylolysis Mitral regurgitation Neck pain Occipital neuralgia Osteoporosis Palpitations Postlaminectomy syndrome of lumbar region Vitamin D deficiency Surgical History (Reviewed @ 14:16 by Courtney Brock) History of back surgery fusion l3-5 and illiac History of bunionectomy History of ERCP History of esophagogastroduodenoscopy ( EGD) History of knee replacement procedure of right knee partial History of surgery on arm right arm repair History of total left knee replacement (TKR) reversal History of total right knee replacement Hx of arthroscopy of left knee Hx of carpal tunnel repair right and left hand Hx of cholecystectomy Hx of hysterectomy Hx of oral surgery extraction Hx of shoulder replacement Hx of tubal ligation Hx of varicose vein stripping Status post laparoscopic cholecystectomy New diagnosis of cancer in past 12 No months? Chief Complaint Weakness,Other Symptom Description Activity Dependent Balance Eval Nystagmus Nystagmus Presence None Oculomotor Gaze Oculomotor Gaze Nml: Vergence Smooth Pursuit Saccades VOR Cancellation Cover/Uncover Cross Cover Rhomberg Feet Together/Eyes open/Stable Surface fail Feet Together/Eyes Closed/Stable Surface fail Feet Together/Eyes open/Unstable Surface fail Feet Together/Eyes Closed/Unstable fail Surface Outpatient Therapy Assessment Impairments Problems/Impairmments Impaired Endurance,Impaired Transfers,Impaired Gait Pattern,Impaired Walking, Impaired Standing,Impaired Household Care,Impaired Stair Climbing,Impaired Recreational Activities,Impaired Balance, Subjective C/O Pain,Impaired Self Care/Self Management Prognosis Rehab Potential Good Comment Will defer her treatment to her current Physical Therapist , as she is already receiving balance interventions and has no further specific dizziness/ vertigo treatment requirements . Clinical Impression Consistent with Diagnosis Yes Outpatient Therapy Plan of Care Treatment Plan May Include Eval/Re-Eval Yes Frequency Times per week 0 Duration Number of Weeks 0 Addendums This patient is a candidate for social No or vocational rehab? Patient/Guardian verbally acknowledges Yes understanding of treatment program and consents to further treatment? Patient/Guardian verbally acknowledges Yes understanding of diagnosis, prognosis and goals for treatment? Eval Complexity PT Charges 49798 - High Complexity Shoulder/Elbow Eval Shoulder Objective Measurements Elbow Objective Measurements PHYSICIAN CERTIFICATION: I certify the specified therapy services for Navya Sheikhp are required, authorized, and reviewed every 30 days.
== END 2023-06-13 10:45 | disposition home or self-care (01) ==
LOC: PT 09:28
PROVIDERS: PCP Family Medicine; Visit Provider Family Medicine
DX: H81.90 Unspecified disorder of vestibular function, unspecified ear (principal)
CPT/HCPCS: 97163

== ENCOUNTER 2023-06-26 13:51 | Outpatient (CLI) | payer MEDICARE, SELFPAY ==
[2023-06-26] MEDS: DENOSUMAB 60 MG/ML SYRINGE SQ (14:00)
[2023-06-26 14:15] VITALS: BP 147/71; PULSE 61; RESP 18; TEMP 36.8; O2SAT 97
== END 2023-06-26 14:15 | disposition home or self-care (01) ==
LOC: INF 13:52
PROVIDERS: PCP Family Medicine; Visit Provider Family Medicine
DX: M81.0 Age-related osteoporosis without current pathological fracture (principal)
CPT/HCPCS: 96372; J0897

== ENCOUNTER 2023-07-10 11:00 | Outpatient (RCR) | payer MEDICARE, SELFPAY ==
--- NOTE | 2023-04-18 18:06 | HMH.PTOPEV ---
PT Outpatient Evaluation Rehab PT Outpatient Evaluation Start: 04/18/23 17:49 Freq: Status: Active Protocol: Document 04/18/23 17:49 ALKA (Rec: 04/18/23 18:06 ALKA [id number]) E-signed By Zhen Campoverde, PT Outpatient Therapy Subjective History Subjective History Patient is an 82 year old female presenting to outpatient PT with reports of chronic cervical spine pain starting approx 05/2022. No specific injury to report. Most recent imaging indicates chronic odontoid process fracture of C2 and multi-level subluxations. She is now reporting associated headaches and dizziness. Dizziness started directly after having ear wax cleared by carpenter supervisor . Suspect possible BPPV. Main complaints at this time are CS pain, headaches, BLE weakness and poor balance. Comorbidities include hx of R reverse CVA,TSA, B TKA, LS fusion, HTN and HL. [ End ] Chief Complaint Pain,Stiff,Gives out/Unstable, Weakness Symptom Type Ache,Sharp Symptoms Relieved By Rest/Positioning,Prescription Meds Symptoms Aggravated By Standing,Bending/Stooping, Physical Activity,Walking, Lifting Prior Functional Limitations Reaching,Lifting,Housework, Driving,Standing,Squatting, Walking,Stairs,Balance,Bending /Stooping Current Functional Limitations Reaching,Lifting,Housework, Driving,Standing,Squatting, Walking,Stairs,Balance,Bending /Stooping Symptom Description Constant but Variable Level of pain today (0-10) 5 Pain scale - at its best (0-10) 4 Pain scale - at its worst (0-10) 9 Cervical Eval Palpation Cervical Muscles R Cervical Paraspinal,L Cervical Paraspinal,R Suboccipital,L Suboccipital,R CT Junction,L CT Junction,R Upper Trapezius,L Upper Trapezius Posture Head/C-Spine Posture Sitting Position Side Bent Right Head/C-Spine Posture Standing Position Side Bent Right Flexibility Deficits Upper Trapezius Muscle Length (R) Moderate Tightness,(L) Moderate Tightness Levaetor Scapulae Muscle Length (R) Moderate Tightness,(L) Moderate Tightness Scalene Group Muscle Length (R) Moderate Tightness,(L) Moderate Tightness Pectoralis Minor Muscle Length (R) Moderate Tightness,(L) Moderate Tightness Passive Joint Mobility Cervical PIVM Dec: R OA L OA R AA L AA R C2/3 L C2/3 R C3/4 L C3/4 R C4/5 L C4/5 R C5/6 L C5/6 R C6/7 L C6/7 R C7/T1 L C7/T1 AROM Cervical Spine Extension Active Range of 22 Motion (degrees) Cervical Spine Flexion Active Range of 26 Motion (degrees) Cervical Spine Right Lateral Flexion 18 Active Range of Motion (degrees) Cervical Spine Left Lateral Flexion 9 Active Range of Motion (degrees) Cervical Spine Right Rotation Active 33 Range of Motion (degrees) Cervical Spine Left Rotation Active 28 Range of Motion (degrees) MMT Bilateral Deltoid (C5) 4- Good- Biceps Brachii Strength Grade 4- Good- Wrist Extension Strength Grade 4- Good- Triceps Brachii Strength Grade 4- Good- Wrist Flexion Strength Grade 4- Good- Extensor Pollicis Longus Strength Grade 4- Good- Finger Abduction Strength Grade 4- Good- Special Test C-Spine Foraminal Compression (Spurling) Negative Left,Negative Right Test C-Spine Foraminal Distraction Test Negative Hip/Knee Eval Gait Observation General Gait Pattern Observation Shuffling Step MMT bilateral Hip Flexion Strength Grade 3+ Fair+ Hip Abduction Strength Grade 3+ Fair+ Hip Adduction Strength Grade 3+ Fair+ Hip Extension Strength Grade 3+ Fair+ Gluteus Jason Strength Grade 3+ Fair+ Hip External Rotation Strength Grade 3+ Fair+ Hip Internal Rotation Strength Grade 3+ Fair+ Knee Extension Strength Grade 3+ Fair+ Knee Flexion Strength Grade 3+ Fair+ Balance Eval Subjective Hx of Complaint Comment I have to use a walker now because I've been falling. Chief Complaint vertigo Yes: Not cleared yet Did you feel dizzy, unsteady or faint? Yes Activity at onset 4 months Prior Functional Limitations Prior Functional [place] Level Difficulty with all standing/ ambulatory activities. Current Functional Limitations Comment Difficulty with all standing/ ambulatory activities. Hx of Falls Hx Falls Yes Number in last 6 months 5 Gait/Posture Asssessment General Gait Observation Narrow Based Gait,Shuffling Step Assistive Devices Rolling / Wheeled Walker Level of Transfer Assist Standby Assistance Timed Up and Go Test 1. Is the Timed Up and Go test result > yes or = to 12 seconds? Dynamic Gait Index Test Protocol Gait Level Surface Moderate Impairement Query Text: Instructions: Walk at your normal speed from here to the next jerson (20'). Grading: Jerson the lowest category that applies. Change in Gait Speed Moderate Impairment Query Text: Instructions: Begin walking at your normal pace (for 5'), when I tell you go , walk as fast as you can (for 5'). When I tell you slow , walk as slowly as you can (for 5'). Grading: Jerson the lowest category that applies. Gait with Horizontal Head Turns Moderate Impairment Query Text: Instructions: Begin walking at your normal pace. When I tell you to look right , keep walking straight, but turn you head to the right. Keep looking to the right unit I tell you look left , then keep walking straight and turn your head to the left. Keep your head to the left until I tell you look straight , then keep walking straight, but return you head to the center. Grading: Jerson the lowest category that applies. Gait with Vertical Head Turns Moderate Impairment Query Text: Instructions: Begin walking at your normal pace. When I tell you to look up , keep walking staight, but tip your head up. Keep looking up until I tell you to look down , then keep walking straight and tip your head down. Keep your head down until I tell you look straight , then keep walking straight, but return your head to the center. Grading: Jerson the lowest category that applies. Gait and Pivot Turn Mild Impairment Query Text: Instructions: Begin walking at your normal pace. When I tell you turn and stop , turn as quickly as you can to face the opposite direction and stop. Grading: Jerson the lowest category that applies. Step Over Obstacle Moderate Impairment Query Text: Instructions: Begin walking at your normal speed. When you come to the shoebox, step over it, not around it and keep walking. Grading: Jerson the lowest category that applies. Step Around Obstacles Moderate Impairment Query Text: Instructions: Begin walking at normal speed. When you come to the first cone (about 6' away), walk around the right side of it. When you come to the second cone (6' past first cone), walk around it to the left. Grading: Jerson the lowest category that applies. Steps Moderate Impairment Query Text: Instructions: Walk up these stairs as you would at home. At the top, turn around and walk down. Grading: Jerson the lowest category that applies. Scoring Dynamic Gait Index Score 9 Neck Disability Index Neck Disability Index Section 1: Pain Intensity The pain is very mild at moment Section 2: Personal Care (washing, I can look after myself dressing, etc.) normally without causing extra pain Section 3: Lifting Pain prevents me from lifting heavy weights, but I can manage light to Section 4: Reading I can hardly read at all because of severe pain in my neck Section 5: Headaches I have moderate headaches, which come frequently Section 6: Concentration I can concentrate fully when I want to with slight difficulty Section 7: Work I can do most of my usual work , but no more Section 8: Driving I can drive my car as long as I want with slight pain in my neck Section 9: Sleeping My sleep is slightly disturbed (less than 1 hr sleepless) Section 10: Recreation I can't do any recreation activities NDI Score 21 Outpatient Therapy Assessment Impairments Problems/Impairmments Palpation Tenderness,Impaired Range of Motion,Impaired Strength,Impaired Walking, Impaired Standing,Impaired Driving,Impaired Lifting, Impaired Shower/Bathing, Impaired Household Care, Impaired Stair Climbing, Impaired Incline Stepping, Impaired Stepping on Uneven Surface,Impaired Squatting, Impaired Bending,Impaired Balance,Impaired DGI Score, Impaired TUG Time,Subjective C /O Pain Prognosis Rehab Potential Good Clinical Impression Consistent with Diagnosis Yes Short Term Goals Number of Weeks 2 Decrease Subjective C/O Pain Yes: 510 at worst 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 Number of Weeks 4-6 Decreased Palpation Tenderness Yes: 1/4 Increase Range of Motion Yes: 50% WNL Increase Strength Yes: BUE/BLE 4+/5 Increase Ability to Walk Yes: 30 min without difficulty Increase Ability to Stand Yes: Improve Ability For Household Care Yes Improve Ability to Climb Stairs Yes: 1 flight up/down without difficulty Improve Balance Yes: 10 sec SLS Decrease Subjective C/O Pain Yes: 2/10 at worst Outpatient Therapy Plan of Care Treatment Plan May Include Therapeutic Exercise Including Home Yes Exercise Program Manual Therapy Techniques Yes Neuromuscular Re-education Yes Therapeutic Activities to Return to Yes Previous Functional/Work Level Gait Training Yes ADL/Self Care Education Yes Mechanical Traction Yes Dry Needling Yes Thermal Modalities Yes Electrical Stimulation Yes Ultrasound/Phonophoresis Yes Iontophoresis Yes Orthotics/Bracing/Splinting Yes Vasopneumatic Compression Pump Yes Massage Yes Eval/Re-Eval Yes Aquatic Therapy Yes Frequency Times per week 2 Duration Number of Weeks 4-6 Addendums This patient is a candidate for social No or vocational rehab? Patient/Guardian verbally acknowledges Yes understanding of treatment program and consents to further treatment? Patient/Guardian verbally acknowledges Yes understanding of diagnosis, prognosis and goals for treatment? Eval Complexity PT Charges 34135 - High Complexity Shoulder/Elbow Eval Shoulder Objective Measurements Elbow Objective Measurements PHYSICIAN CERTIFICATION: I certify the specified therapy services for Navya Clifton are required, authorized, and reviewed every 30 days.
--- NOTE | 2023-05-22 09:22 | HMH.RHREAS ---
Rehab Reassessment Rehab OP Re-assessment Start: 04/18/23 17:49 Freq: Status: Active Protocol: Document 05/22/23 08:51 ALKA (Rec: 05/22/23 09:21 ALKA [id number]) E-signed By Zhen Campoverde, PT Dynamic Gait Index Test Protocol Gait Level Surface Mild Impairment Query Text: Instructions: Walk at your normal speed from here to the next jerson (20'). Grading: Jerson the lowest category that applies. Change in Gait Speed Mild Impairment Query Text: Instructions: Begin walking at your normal pace (for 5'), when I tell you go , walk as fast as you can (for 5'). When I tell you slow , walk as slowly as you can (for 5'). Grading: Jerson the lowest category that applies. Gait with Horizontal Head Turns Moderate Impairment Query Text: Instructions: Begin walking at your normal pace. When I tell you to look right , keep walking straight, but turn you head to the right. Keep looking to the right unit I tell you look left , then keep walking straight and turn your head to the left. Keep your head to the left until I tell you look straight , then keep walking straight, but return you head to the center. Grading: Jerson the lowest category that applies. Gait with Vertical Head Turns Moderate Impairment Query Text: Instructions: Begin walking at your normal pace. When I tell you to look up , keep walking staight, but tip your head up. Keep looking up until I tell you to look down , then keep walking straight and tip your head down. Keep your head down until I tell you look straight , then keep walking straight, but return your head to the center. Grading: Jerson the lowest category that applies. Gait and Pivot Turn Moderate Impairment Query Text: Instructions: Begin walking at your normal pace. When I tell you turn and stop , turn as quickly as you can to face the opposite direction and stop. Grading: Jerson the lowest category that applies. Step Over Obstacle Moderate Impairment Query Text: Instructions: Begin walking at your normal speed. When you come to the shoebox, step over it, not around it and keep walking. Grading: Jerson the lowest category that applies. Step Around Obstacles Mild Impairment Query Text: Instructions: Begin walking at normal speed. When you come to the first cone (about 6' away), walk around the right side of it. When you come to the second cone (6' past first cone), walk around it to the left. Grading: Jerson the lowest category that applies. Steps Moderate Impairment Query Text: Instructions: Walk up these stairs as you would at home. At the top, turn around and walk down. Grading: Jerson the lowest category that applies. Scoring Dynamic Gait Index Score 11 Neck Disability Index Neck Disability Index Section 1: Pain Intensity The pain is very mild at moment Section 2: Personal Care (washing, I can look after myself dressing, etc.) normally but it causes extra pain Section 3: Lifting Pain prevents me from lifting heavy weights, but I can manage light to Section 4: Reading I can read as much as I want with moderate pain in my neck Section 5: Headaches I have moderate headaches, which come frequently Section 6: Concentration I have a fair degree of difficulty in concentrating when I want to Section 7: Work I cannot do my usual work Section 8: Driving I can drive my car as long as I want with moderate pain in my neck Section 9: Sleeping My sleep is moderately disturbed (2-3 hrs. sleepless) Section 10: Recreation I can hardly do any recreation activities because of pain in my neck NDI Score 24 Oswestry Index Section 1 Pain Intensity The pain is mild and does not vary much Section 2 Personal Care (Washing,Dresing) my way of washing or dressing even though it causes some pain Section 3 Lifting lifting heavy weights off the floor, but I can manage if they are Section 4 Walking I cannot walk more than 1/4 mile without increasing pain Section 5 Sitting Pain prevents me from sitting for more than one hour Section 6 Standing I cannot stand more than 1/2 hour without increasing pain Section 7 Sleeping I get pain in bed, but it does not prevent me from sleeping well Section 8 Social Life Pain has restricted my social life and I do not go out often Section 9 Traveling I get extra pain while traveling, but it does not compel me to seek al Section 10 Changing Degreee of Pain My pain seems to be getting better, but improvement is slow Score and Risk Level Oswestry Sc 22 Oswestry Risk Level Moderate Disability Rehab Re-assessment Subjective Subjective Patient reports 20% improvement since start of care. Objective Objective Notes CROM: flx 28; ext 38; SBr 10; SBl 12; Rr 49; Rl 52 LROM: flx 78; ext 9; SBr 14; SBl 16; MMT: BUE/BLE 4/5 grossly Neuro: no reports BUE/BLE radicular symptoms. Assessment Progress Assessment Slower Than Expected Assessment Notes Patient has been seen in outpatient PT for 6 treatment visits to day. Slow progress noted secondary to severity of symptoms. Patient would benefit from continuing with skilled PT interventions in order to address functional limitations with all standing, walking, bending and lifting activities. Patient goals met STG 2 Goals Not Met All others Plan Plan Continue with current POC. Frequency of Therapy 2x/week Duration of therapy 4 weeks Time and Billing Re-Eval Time 24 Re-Eval Billing Units 1 PHYSICIAN CERTIFICATION: I certify the specified therapy services for Navya Clifton are required, authorized, and reviewed every 30 days.
--- NOTE | 2023-07-03 11:12 | HMH.RHREAS ---
Rehab Reassessment Rehab OP Re-assessment Start: 04/18/23 17:49 Freq: Status: Active Protocol: Document 07/03/23 11:07 ALKA (Rec: 07/03/23 11:11 ALKA [id number]) E-signed By Zhen Campoverde, PT Dynamic Gait Index Test Protocol Gait Level Surface Mild Impairment Query Text: Instructions: Walk at your normal speed from here to the next jerson (20'). Grading: Jerson the lowest category that applies. Change in Gait Speed Mild Impairment Query Text: Instructions: Begin walking at your normal pace (for 5'), when I tell you go , walk as fast as you can (for 5'). When I tell you slow , walk as slowly as you can (for 5'). Grading: Jerson the lowest category that applies. Gait with Horizontal Head Turns Moderate Impairment Query Text: Instructions: Begin walking at your normal pace. When I tell you to look right , keep walking straight, but turn you head to the right. Keep looking to the right unit I tell you look left , then keep walking straight and turn your head to the left. Keep your head to the left until I tell you look straight , then keep walking straight, but return you head to the center. Grading: Jerson the lowest category that applies. Gait with Vertical Head Turns Moderate Impairment Query Text: Instructions: Begin walking at your normal pace. When I tell you to look up , keep walking staight, but tip your head up. Keep looking up until I tell you to look down , then keep walking straight and tip your head down. Keep your head down until I tell you look straight , then keep walking straight, but return your head to the center. Grading: Jerson the lowest category that applies. Gait and Pivot Turn Mild Impairment Query Text: Instructions: Begin walking at your normal pace. When I tell you turn and stop , turn as quickly as you can to face the opposite direction and stop. Grading: Jerson the lowest category that applies. Step Over Obstacle Moderate Impairment Query Text: Instructions: Begin walking at your normal speed. When you come to the shoebox, step over it, not around it and keep walking. Grading: Jerson the lowest category that applies. Step Around Obstacles Mild Impairment Query Text: Instructions: Begin walking at normal speed. When you come to the first cone (about 6' away), walk around the right side of it. When you come to the second cone (6' past first cone), walk around it to the left. Grading: Jerson the lowest category that applies. Steps Moderate Impairment Query Text: Instructions: Walk up these stairs as you would at home. At the top, turn around and walk down. Grading: Jerson the lowest category that applies. Scoring Dynamic Gait Index Score 12 Neck Disability Index Neck Disability Index Section 1: Pain Intensity The pain is very mild at moment Section 2: Personal Care (washing, I can look after myself dressing, etc.) normally but it causes extra pain Section 3: Lifting Pain prevents me from lifting heavy weights, but I can manage light to Section 4: Reading I can read as much as I want with moderate pain in my neck Section 5: Headaches I have moderate headaches, which come frequently Section 6: Concentration I can concentrate fully when I want to with slight difficulty Section 7: Work I cannot do my usual work Section 8: Driving I can drive my car as long as I want with moderate pain in my neck Section 9: Sleeping My sleep is midly disturbed (1 -2 hrs sleepless) Section 10: Recreation I can hardly do any recreation activities because of pain in my neck NDI Score 22 Oswestry Index Section 1 Pain Intensity The pain is mild and does not vary much Section 2 Personal Care (Washing,Dresing) my way of washing or dressing even though it causes some pain Section 3 Lifting lifting heavy weights off the floor, but I can manage if they are Section 4 Walking I cannot walk more than 1/4 mile without increasing pain Section 5 Sitting Pain prevents me from sitting for more than one hour Section 6 Standing I cannot stand more than 1/2 hour without increasing pain Section 7 Sleeping I get pain in bed, but it does not prevent me from sleeping well Section 8 Social Life Pain has restricted my social life and I do not go out often Section 9 Traveling I get extra pain while traveling, but it does not compel me to seek al Section 10 Changing Degreee of Pain My pain seems to be getting better, but improvement is slow Score and Risk Level Oswestry Sc 22 Oswestry Risk Level Moderate Disability Rehab Re-assessment Subjective Subjective Patient reports 30% improvement since start of care. Objective Objective Notes NuStep 10' Wobble board 1'x2 f/b s/s UFO EO/EC 1'x2 each Tandem stance B 1'x2 Step up fwd 15 B, side step up /over 15 Assessment Progress Assessment Slower Than Expected Assessment Notes Patient has been seen in outpatient PT for 9 treatment visits to day. Slow progress noted secondary to severity of symptoms. Patient would benefit from continuing with skilled PT interventions in order to address functional limitations with all standing, walking, bending and lifting activities. Patient goals met STG 2 Goals Not Met All others Plan Plan Continue with current POC. Frequency of Therapy 2x/week Duration of therapy 4 weeks Time and Billing Re-Eval Time 16 Re-Eval Billing Units 1 PHYSICIAN CERTIFICATION: I certify the specified therapy services for Navya Clifton are required, authorized, and reviewed every 30 days.
== END 2023-07-10 12:00 | disposition home or self-care (01) ==
LOC: PT 11:00
PROVIDERS: PCP Family Medicine; Visit Provider Specialist
DX: I63.50 Cerebral infarction due to unspecified occlusion or stenosis of unspecified cerebral artery (principal); I65.02 Occlusion and stenosis of left vertebral artery; G44.86 Cervicogenic headache; M96.1 Postlaminectomy syndrome, not elsewhere classified; M47.12 Other spondylosis with myelopathy, cervical region
CPT/HCPCS: 20561; 97010; 97014; 97110; 97112; 97140; 97163; 97164; 97530; 97535; G0283

== ENCOUNTER 2023-10-23 11:00 | Outpatient (RCR) | payer MEDICARE, SELFPAY ==
--- NOTE | 2023-07-26 15:32 | HMH.PTOPEV ---
PT Outpatient Evaluation Rehab PT Outpatient Evaluation Start: 07/26/23 10:57 Freq: Status: Active Protocol: Document 07/26/23 11:00 NIYAH (Rec: 07/26/23 14:47 NIYAH [id number]) E-signed By Jazmyn Mcdonald, PT Outpatient Therapy Subjective History Subjective History This is an initial evaluation for Navya Etienne who presents to the clinic with complaints of upper extremity weakness, intermittent neck and back pain, impaired balance, and R LE knee/hip pain. Pt referred to clinic for generalized weakness. Falls: pt reports history of frequent falls in the past 6 months where she reports tripping and LOB. Pt lives home alone with 1 BRIAN and uses a RW for ambulation. HPI: Cervicogenic headache, ( neurology consult 11/29/2022), left cerebellar CVA, ( admission to [facility], 12/09/2022), severe cervical spondylosis with early myelopathy, (chronic, without surgical indication). New diagnosis of cancer in past 12 No months? Chief Complaint Pain,Weakness Symptom Type Ache,Dull,Shooting Symptoms Relieved By Rest/Positioning,OTC Meds Current Functional Limitations Reaching,Lifting,Housework, Driving,Sleeping,Recreation Activity,Stairs,Balance Level of pain today (0-10) 0 Pain scale - at its best (0-10) 0 Pain scale - at its worst (0-10) 5 Shoulder/Elbow Eval Shoulder Objective Measurements Shoulder MMT Bilateral Shoulder Abduction Strength Grade 3+ Fair+ Shoulder Extension Strength Grade 4- Good- Shoulder Flexion Strength Grade 3+ Fair+ Elbow Objective Measurements Elbow MMT Bilateral Elbow Flexion Strength Grade 4- Good- Elbow Extension Strength Grade 4- Good- Hip/Knee Eval MMT bilateral Hip Flexion Strength Grade 4- Good- Hip Abduction Strength Grade 4- Good- Hip Adduction Strength Grade 4 Good Knee Extension Strength Grade 4- Good- Knee Flexion Strength Grade 4- Good- Balance Eval Subjective Hx of Complaint Comment Reports a few falls in past 6 months. Hx of Falls Hx Falls Yes Gait/Posture Asssessment General Gait Observation Antalgic Gait,Narrow Based Gait Assistive Devices Rolling / Wheeled Walker Level of Transfer Assist Independent,Standby Assistance Body Alignment Posture Thoracic Kyphosis Timed Up and Go Test 1. Is the Timed Up and Go test result > yes or = to 12 seconds? Rhomberg Feet Together/Eyes open/Stable Surface fail Feet Together/Eyes Closed/Stable Surface fail Feet Together/Eyes open/Unstable Surface fail Feet Together/Eyes Closed/Unstable fail Surface Lower Extremity Functional Index Activities Today, do you or would you have any difficulty at all with: a.Any of your usual work, housework or Moderate difficulty school activities b. Your usual hobbies, recreational or Moderate difficulty sporting activities c. Getting into or out of the bath Moderate difficulty d. Walking between rooms Moderate difficulty e. Putting on your shoes or socks Moderate difficulty f. Squatting Moderate difficulty g. Lifting an object, like a bag of Moderate difficulty groceries from the floor h. Performing light activities around Moderate difficulty your home i. Performing heavy activities around Quite a bit of difficulty your home j. Getting into or out of a car A little bit of difficulty k. Walking 2 blocks Quite a bit of difficulty l. Walking a mile Quite a bit of difficulty m. Going up or down 10 stairs (about 1 Moderate difficulty flight of stairs) n. Standing for 1 hour Moderate difficulty o. Sitting for 1 hour A little bit of difficulty p. Running on even ground Extreme difficulty or unable to perform activity q. Running on uneven ground Extreme difficulty or unable to perform activity r. Making sharp turns while running fast Extreme difficulty or unable to perform activity s. Hopping Extreme difficulty or unable to perform activity t. Rolling over in bed A little bit of difficulty LEFI Score Lower Extremity Functional Index Score 32 Miscellaneous Dx PT Eval Objective Objective General strength: Myotome screening displayed generalized 4-/5 strength throughout extremities. Pt displayed trendenlenburg gait pattern throughout gait assessment and hip ABD weakness during LLE SLS. Balance: Tandem stance: requires Min A-Supervision with RW. SLS unable with BUE support. Posture: scoliosis, increased thoracic kyphosis Outpatient Therapy Assessment Impairments Problems/Impairmments Impaired Strength,Impaired Gait Pattern,Impaired Walking, Impaired Balance,Impaired TUG Time Prognosis Rehab Potential Good Comment Initial evaluation consisted of pt interviewing and a comprehensive assessment to determine that pt presents with generalized weakness, postural deficits, impaired endurance, and decreased balance/safety. Weakness is more prominant in UEs than LEs but pt does present with weak bilateral glute medius (more significant on left). Pt would benefit from skilled outpatient physical therapy to improve strength, balance, safety, and quality of life. Clinical Impression Consistent with Diagnosis Yes Short Term Goals Increase Strength Yes: General LE strength to 4/ 5 Improve Gait Pattern with Assistive Yes: Improve posture/decrease Device trendelenburg throughout ~50% of gait. Increase Ability to Walk Yes: Navigate obstacles in an open environment with LOB 2/3 trials Improve Ability to Step on Uneven Yes: Pt will safely navigate Surfaces uneven surfaces 15' with RW with SUP. Improve Balance Yes: Dynamic/static standing balance score fair+ on functional balance scale Improve LEFI Score Yes: 45/80 Decrease TUG Time Yes: Decrease by MCID of 3.4 seconds Patient to be Ind w/ HEP Yes Computer Tape Librarian Goals Increase Strength Yes: General strength to 5/5 Improve Gait Pattern with Assistive Yes: Improve posture/decrease Device trendelenburg throughout ~90% of ambulation. Increase Ability to Walk Yes: Pt will improve safety when navigating obstacles in an open environment. Improve Ability to Step on Uneven Yes: Safely navigate 25' of Surfaces uneven surfaces with RW with independence/ no LOB Improve Balance Yes: Dynamic/static standing balance score good on functional balance scale Decrease TUG Time Yes: To age appropriate norm of 10-12 seconds. Patient to be Ind w/ HEP Yes Outpatient Therapy Plan of Care Treatment Plan May Include Therapeutic Exercise Including Home Yes Exercise Program Manual Therapy Techniques Yes Neuromuscular Re-education Yes Therapeutic Activities to Return to Yes Previous Functional/Work Level Gait Training Yes ADL/Self Care Education Yes Thermal Modalities Yes Electrical Stimulation Yes Ultrasound/Phonophoresis Yes Iontophoresis Yes Massage Yes Eval/Re-Eval Yes Frequency Times per week 2 Duration Number of Weeks 8 Addendums Patient/Guardian verbally acknowledges Yes understanding of treatment program and consents to further treatment? Patient/Guardian verbally acknowledges Yes understanding of diagnosis, prognosis and goals for treatment? Eval Complexity PT Charges 20446 - High Complexity PHYSICIAN CERTIFICATION: I certify the specified therapy services for Navya Clifton are required, authorized, and reviewed every 30 days.
--- NOTE | 2023-08-28 12:28 | HMH.RHREAS ---
Rehab Reassessment Rehab OP Re-assessment Start: 07/26/23 10:57 Freq: Status: Active Protocol: Document 08/28/23 10:46 NIYAH (Rec: 08/28/23 12:28 NIYAH [id number]) E-signed By Jazmyn Mcdonald, PT Lower Extremity Functional Index Activities Today, do you or would you have any difficulty at all with: a.Any of your usual work, housework or Quite a bit of difficulty school activities b. Your usual hobbies, recreational or A little bit of difficulty sporting activities c. Getting into or out of the bath A little bit of difficulty d. Walking between rooms A little bit of difficulty e. Putting on your shoes or socks A little bit of difficulty f. Squatting No difficulty g. Lifting an object, like a bag of Moderate difficulty groceries from the floor h. Performing light activities around Moderate difficulty your home i. Performing heavy activities around Quite a bit of difficulty your home j. Getting into or out of a car A little bit of difficulty k. Walking 2 blocks Moderate difficulty l. Walking a mile Extreme difficulty or unable to perform activity m. Going up or down 10 stairs (about 1 Extreme difficulty or unable flight of stairs) to perform activity n. Standing for 1 hour Extreme difficulty or unable to perform activity o. Sitting for 1 hour No difficulty p. Running on even ground Extreme difficulty or unable to perform activity q. Running on uneven ground Extreme difficulty or unable to perform activity r. Making sharp turns while running fast Extreme difficulty or unable to perform activity s. Hopping Extreme difficulty or unable to perform activity t. Rolling over in bed Moderate difficulty LEFI Score Lower Extremity Functional Index Score 33 Rehab Re-assessment Subjective Subjective Pt reports she feels 30% better since initial evaluation. Pt reports she has been working on her leg strength at home. Objective Objective Notes Reassess: 10:46am TUs with RW; 15s with RW Rhomberg: even EO:PASS even EC : PASS. uneven EO/EC: FAIL Functional balance Grade: Static: Good. Dynamic: Fair- good (able to accept min challenge) MMT: LLE: flx 4/5, ADD 4/5, ABD 4/5 , knee ext 4+/5, knee flex 4/5 RLE: flx 4-/5, ADD 4/5, ABD 4/ 5, knee ext 4+/5, knee flex 4/ 5 BUE: shoulder 4-/5, bicep 4/5, tricep 4/5 Assessment Progress Assessment Progressing as Expected Assessment Notes As of 08/28/23, Navya Clifton has been seen for 10 OP PT visits. Since initial evaluation, pt with visible improvements in static and dynamic standing balance, gait, safety during mobility, endurance, and general strength. Pt continues to display Trendelenburg and weak glute meds but with visible improvement in B hip stabilization during gait, steps, and SLS. Pt reports good adherence to HEP and with good attendance to her PT sessions. Pt would continue to benefit from skilled OP PT to address deficits, meet remaining STG and LTGs, and maximize safety with mobility. Patient goals met ST/8 LTG: in progress Goals Not Met LEFS, Uneven surface, trendelenburg Revised Goals STG: ability to walk. correct to No LOB 2/3 trials Plan Plan Continue current POC Frequency of Therapy 2 Duration of therapy 8 Time and Billing Re-Eval Time 14 Re-Eval Billing Units 1 PHYSICIAN CERTIFICATION: I certify the specified therapy services for Navya Clifton are required, authorized, and reviewed every 30 days.
--- NOTE | 2023-09-25 14:21 | HMH.RHREAS ---
Rehab Reassessment Rehab OP Re-assessment Start: 07/26/23 10:57 Freq: Status: Active Protocol: Document 09/25/23 10:52 NIYAH (Rec: 09/25/23 12:21 NIYAH [id number]) E-signed By Jazmyn Mcdonald, PT Lower Extremity Functional Index Activities Today, do you or would you have any difficulty at all with: a.Any of your usual work, housework or Moderate difficulty school activities b. Your usual hobbies, recreational or A little bit of difficulty sporting activities c. Getting into or out of the bath A little bit of difficulty d. Walking between rooms A little bit of difficulty e. Putting on your shoes or socks No difficulty f. Squatting Quite a bit of difficulty g. Lifting an object, like a bag of A little bit of difficulty groceries from the floor h. Performing light activities around Moderate difficulty your home i. Performing heavy activities around Quite a bit of difficulty your home j. Getting into or out of a car A little bit of difficulty k. Walking 2 blocks Extreme difficulty or unable to perform activity l. Walking a mile Extreme difficulty or unable to perform activity m. Going up or down 10 stairs (about 1 Moderate difficulty flight of stairs) n. Standing for 1 hour A little bit of difficulty o. Sitting for 1 hour A little bit of difficulty p. Running on even ground Extreme difficulty or unable to perform activity q. Running on uneven ground Extreme difficulty or unable to perform activity r. Making sharp turns while running fast Extreme difficulty or unable to perform activity s. Hopping Extreme difficulty or unable to perform activity t. Rolling over in bed A little bit of difficulty LEFI Score Lower Extremity Functional Index Score 36 Rehab Re-assessment Subjective Subjective I'm doing fair. I got a little winded going up that ramp Pt reports she feels 50% improved since IE. Objective Objective Notes TUs with RW; 15s without RW Rhomberg: even EO: PASS even EC: PASS. uneven EO: PASS. uneven EC: FAIL Functional balance Grade: Static: Good. Dynamic: Good ( able to accept mod challenge) MMT: LLE: flx 4/5, ADD 5/5, ABD 4/5 , knee ext 4+/5, knee flex 4/5 RLE: flx 4/5, ADD 5/5, ABD 5/5 , knee ext 4+/5, knee flex 4/5 BUE: shoulder 4/5, bicep 4/5, tricep 4/5 SLS: 15s no UE support; SUP Assessment Progress Assessment Progressing as Expected Assessment Notes This is a reassessment for Navya Sheikh who presents to PT for c/o generalized weakness. Since IE, pt has been seen for 18 visits. Pt with good attendance to all scheduled PT visits and reports some adherence to HEP. Since IE, pt with improvements in BLE strength, gait, and balance. Pt is able to perform higher level balance challenges with SUP-Mod A (depending on complexity of task). Pt with improved ability to perform SLS since IE and with good functional balance when using RW. Pt with age-appropriate TUG score when using RW but is still a fall risk when not using AD. Pt still presents with impaired gait and strength in UE/LE. PT recommending decrease frequency of PT to 1 time a week to address remaining deficits, meet LTGs, educate on advanced HEP, and monitor retention of progress. Patient goals met ST LT/6 Goals Not Met LEFS Revised Goals Discontinue trendelenburg goal . Deviation is primarily structural in nature ( scoliosis/ Leg length). Plan Plan Conitnue POC with frequency decreased to once a week for 4 -5 more weeks. Frequency of Therapy 1x Duration of therapy 4-5 weeks Time and Billing Re-Eval Time 15 Re-Eval Billing Units 1 PHYSICIAN CERTIFICATION: I certify the specified therapy services for Navya Stewart Etienne are required, authorized, and reviewed every 30 days.
== END 2023-10-23 12:00 | disposition home or self-care (01) ==
LOC: PT 11:00
PROVIDERS: PCP Family Medicine; Visit Provider Family Medicine
DX: R53.1 Weakness (principal)
CPT/HCPCS: 97110; 97112; 97163; 97164; 97530

== ENCOUNTER 2024-01-01 13:41 | Outpatient (CLI) | payer MEDICARE, SELFPAY ==
[2024-01-01 13:55] VITALS: BP 145/71; PULSE 56; RESP 18; O2SAT 93
[2024-01-01] MEDS: DENOSUMAB 60 MG/ML SYRINGE SQ (13:55)
== END 2024-01-01 14:00 | disposition home or self-care (01) ==
LOC: INF 13:43
PROVIDERS: PCP Family Medicine; Visit Provider Family Medicine
DX: M81.0 Age-related osteoporosis without current pathological fracture (principal); Z79.620 Long term (current) use of immunosuppressive biologic
CPT/HCPCS: 96372; J0897